=== PATIENT | female | born 2000 | race African-American/Black ===

== ENCOUNTER 2021-10-27 10:42 | Emergency (ER) | payer MEDICAID, SELFPAY ==
--- NOTE | ~2021-10-27 | XR_ITS ---
EXAMINATION: XR CHEST CLINICAL INFORMATION: Fever, chills and cough with congestion. COMPARISON: None TECHNIQUE: 2 views of the chest were obtained. FINDINGS: No significant abnormality is noted involving the heart, lungs, mediastinum, bony thorax or soft tissues. XR/XR chest 2V IMPRESSION: Unremarkable chest examination.
[2021-10-27 11:10] VITALS: BP 132/78; PULSE 102; RESP 18; TEMP 37.4; O2SAT 99; BMI 30.5
[2021-10-27 11:42] LABS: UPreg QC Valid YES; Urine Pregnancy NEGATIVE (NEGATIVE)
[2021-10-27 11:42] LABS: COVID-19 Test Negative (Negative)
[2021-10-27 11:46] LABS: IDNOW Serial# 08D9AD1C; Influenza A Negative (Negative); Influenza B2 Negative (Negative)
[2021-10-27] MEDS: Acetaminophen 325 MG TABLET 975 MG PO (12:37)
[2021-10-27] MEDS: dexAMETHasone 2 MG TABLET 10 MG PO (12:38)
[2021-10-27] MEDS: Lidocaine 4 % Patch ADH..PATCH 1 PATCH TRANSDERMA (12:39)
[2021-10-27 12:46] LABS: Strep A Nucleic Acid Negative (Negative)
--- NOTE | 2021-10-27 13:11 | ED.FEVER ---
HPI - Fever General Chief Complaint: Fever Stated Complaint: Bodyaches/Fever Time Seen by Provider: 10/27/21 11:21 Source: patient and family (Young Daughter at bedside) Mode of arrival: ambulatory Limitations: no limitations History of Present Illness HPI Narrative: 21-year-old female who denies any significant past medical history presenting to the ED with complaints of fevers up to 101.0, body aches, nasal congestion/rhinorrhea, cough with chest congestion and sore throat that started yesterday. She reports headaches as well. She reports that she normally gets headaches. She reports she is vaccinated to COVID and the flu. She denies any recent travel or sick contacts that she is aware of. She denies any dizziness, changes in vision, jaw pain, nausea/vomiting, loss of taste or smell, chest pain, shortness of breath, dyspnea on exertion, orthopnea, abdominal pain, diarrhea, constipation, black or bloody stools, palpitations, paresthesias, lower extremity edema, joint swelling, neck stiffness, rashes or any other symptoms complaints or concerns at this time. MD elicited complaint: fever Onset (ago): day(s) (2) Exacerbating factors: nothing Associated symptoms: chills, myalgias, headache, rhinorrhea, nasal congestion, sore throat and cough Treatments prior to arrival fever: none Related Data Previous Rx's Medication Instructions Recorded acetaminophen 500 mg tablet 1,000 mg PO QID PRN #14 tab 10/27/21 (Tylenol Extra Strength) amoxicillin 875 mg-potassium 1 tab PO BID 10 Days #20 tab 10/27/21 clavulanate 125 mg tablet cyclobenzaprine 10 mg tablet 10 mg PO Q8H PRN #14 tab 10/27/21 lidocaine 5 % topical patch 1 patch TOPICAL DAILY #15 ea 10/27/21 (Lidoderm) Allergies Allergy/AdvReac Type Severity Reaction Status Date / Time aspirin [ASA] Allergy Swelling Verified 10/27/21 11:10 caffeine Allergy Swelling Verified 10/27/21 11:10 Review of Systems Review of Systems: Constitutional : No Weight loss, no night sweats, + Fever, + Chills, + Fatigue, + Malaise ENT/Mouth : No Hearing loss, No Ear Pain, + Nasal Congestion/rhinorrhea No Sinus Pain, No Hoarseness, + sore throat, No Swallowing Difficulty Eyes: No Eye Pain, No Swelling, No Redness, No Foreign Body, No Discharge, No Vision Changes Cardiovascular : No Chest Pain, No SOB, No Dyspnea on Exertion, No Orthopnea, No Edema, No Palpitations Respiratory : + Cough, No Sputum, No Wheezing, No Smoke Exposure, No Dyspnea Gastrointestinal : No Nausea, No Vomiting, No Diarrhea, No Constipation, No abdominal Pain, No Hematochezia, No Melena Genitourinary : no irregular bleeding, No Dysuria, No Urinary Frequency, No Hematuria, No Urinary Incontinence, No Urgency, No Flank Pain, No Urinary Flow Changes, No Hesitancy Musculoskeletal : + joint pain, No Myalgias, No Joint Swelling Skin : No Skin Lesions, No rash Neuro : No Weakness, No Numbness, No Paresthesias, No Loss of Consciousness, No Dizziness, No Headache Psych : No Anxiety/Panic, No Depression, No SI/HI/AH/VH, No Social Issues, Heme/Lymph: No Bruising, No Bleeding,No Lymphadenopathy Endocrine : No Polyuria, No Polydipsia, No Temperature Intolerance Yes all other systems are reviewed and are negative [facility] Past Medical History Attestation statement: The following information was validated with the patient. Social History Social History Advance Directives: No Advance Directives Information Provided: No Physical Exam Vital Signs: Vital Signs: Last Vital Signs Temp 99.4 F 10/27/21 11:10 Pulse 102 H 10/27/21 11:10 Resp 18 10/27/21 11:10 BP 132/78 10/27/21 11:10 Pulse Ox 99 10/27/21 11:10 BMI result Body Mass Index 30.5 vital signs have been reviewed as normal and appeared to be correct. Blood pressure normal. Heart rate 102. Respiration rate normal. Temperature normal. Oxygen saturation normal. Appearance: Alert. Oriented X3. No acute distress. Head: Normal external exam. Normocephalic. Atraumatic. No Frost signs noted. No raccoon eyes noted Eyes: PERRLA. EOMI. Conjunctiva and sclera normal. Eyelids normal. ENT: EAC normal. TM's Normal. Posterior pharynx mildly erythematous although no exudate is noted. Otherwise the rest of the pharynx is within normal limits. Uvula midline. Moist mucous membranes. No lesions/ulcerations or masses noted on the tongue. Normal voice. No trismus noted. No drooling noted. No muffled voice noted. Neck: Normal inspection. Neck supple. FROM. No adenopathy. Thyroid Normal. No tracheal deviation noted. No crepitus is noted. No meningeal signs. No neck mass noted. No signs of trauma noted. CVS: Normal heart rate and rhythm. Heart sound normal. Pulses normal throughout. No murmurs/rales/gallops. Respiratory: No respiratory distress. Painless inspiration. Breath sounds normal. No wheezes/rales/rhonchi noted. Chest nontender. No crepitus is noted. No signs of trauma noted. No accessory muscle usage noted or decreased air movement noted. No signs of trauma. Abdomen: Soft and nontender. Bowel sounds normal in all 4 quadrants. No distention noted. No organomegaly noted. No visible injury noted. Back: No CVA tenderness. Full range of motion noted. Nontender. No signs of trauma. Patient neuro intact bilaterally and distally on all 4 extremities. Patient's reflexes intact bilaterally and distally on all 4 extremities. No rashes/lesion/induration/fluctuance or signs of infection noted. Skin: Skin warm and dry. Normal skin color. Normal skin turgor. No rashes/lesions/lacerations noted. Extremities: No lower extremity edema. No calf tenderness is noted. Extremities exhibit normal range of motion and nontender. Neuro: Oriented X 3. No motor deficit. No sensory deficit. Reflexes normal. Normal steady gait. No focal neuro deficits noted. CN's II-XII intact bilaterally? Vascular: + radial pulses/+ 2 distal pedal pulses/+2 dorsalis pedis b/l. Normal cap refill. No cyanosis noted to upper extremity nails and lower extremity toes nails. Course Course Course Narrative: 11:15am - 21-year-old female who denies any significant past medical history presenting to the ED with complaints of fevers up to 101.0, body aches, nasal congestion/rhinorrhea, cough with chest congestion and sore throat that started yesterday. She reports headaches as well. She reports that she normally gets headaches. She reports she is vaccinated to COVID and the flu. Plan: Chest x-ray, COVID swab, flu swab, strep swab, [facility] [place] is unsure she is possibly . Provide 975 mg of Tylenol and a Lidoderm patch and re-evaluate. Reevaluation(s) Reevaluation #1: - patient negative for COVID/flu/strep and her chest x-rays within normal limits no evidence of pneumonia or any other acute processes. Will DC home with symptomatic treatment and antibiotics for possible bacterial pharyngitis despite the patient coming out negative due to she has tonsillar enlargement her main complaint is a sore throat and she does have some erythema and fevers. Along with instructions return if any new or worsening symptoms to follow up with primary care provider. Patient understands agrees with this plan. Time: 13:17 [facility] - Fever Medical Records Attestation: I reviewed the patient's medical records. Lab Data Attestation: I reviewed the patient's lab results. Labs: Lab Results 10/27/21 10/27/21 10/27/21 Range/Units 11:18 11:18 11:30 Urine Test NEGATIVE (NEGATIVE) COVID-19 (ANURAG) Negative (Negative) COVID-19 Clin Com See Note Influenza Type A (JAKI) Negative (Negative) Influenza Type B (JAKI) Negative (Negative) Influenza A & B Note See Note S. pyogenes GrpA JAKI (Negative) 10/27/21 Range/Units 12:34 Urine Test (NEGATIVE) COVID-19 (ANURAG) (Negative) COVID-19 Clin Com Influenza Type A (JAKI) (Negative) Influenza Type B (JAKI) (Negative) Influenza A & B Note S. pyogenes GrpA JAKI Negative (Negative) Imaging Data Chest x-ray: Attestation: I personally reviewed and interpreted this imaging study as follows: Radiologist's impression: FINDINGS: No significant abnormality is noted involving the heart, lungs, mediastinum, bony thorax or soft tissues. XR/XR chest 2V IMPRESSION: Unremarkable chest examination. Discharge Plan Discharge Clinical Impression: Acute bacterial pharyngitis, Acute upper respiratory infection Patient Disposition: Home, Self-Care Instructions: Pharyngitis (ED), Upper Respiratory Infection (DC) Prescriptions: New amoxicillin-pot clavulanate 875-125 mg tablet 1 tab PO BID 10 Days Qty: 20 0RF acetaminophen [Tylenol Extra Strength] 500 mg tablet 1,000 mg PO QID PRN (Reason: fever or pain) Qty: 14 0RF cyclobenzaprine 10 mg tablet 10 mg PO Q8H PRN (Reason: Muscle spasm) Qty: 14 0RF lidocaine [Lidoderm] 5 % adhesive patch,medicated 1 patch topical DAILY Qty: 15 0RF Rx Instructions: leave on most painful area for up to 12 hrs. May be substituted Referrals: Susie Murrieta MD [Primary Care Provider] - 2 days Stand Alone Forms: Work/School Release Print Language: Tanzanian
== END 2021-10-27 13:34 | disposition home or self-care (01) ==
PROVIDERS: Physician Assistant Medical; Emergency Provider Emergency Medicine; PCP Internal Medicine
DX: J02.9 Acute pharyngitis, unspecified (principal); J06.9 Acute upper respiratory infection, unspecified; Z20.822 Contact with and (suspected) exposure to COVID-19; R50.9 Fever, unspecified
CPT/HCPCS: 36415; 71046; 81025; 87502; 87635; 87651; 99283; J8540

== ENCOUNTER 2022-03-26 13:28 | Emergency (ER) | payer MEDICAID, SELFPAY ==
[2022-03-26 13:55] VITALS: BP 114/60; PULSE 78; RESP 18; TEMP 37.2; O2SAT 100; BMI 26.4
[2022-03-26 14:41] LABS: MANUAL DIFF FLAG NO
[2022-03-26 14:46] LABS: Basophils Percent Auto 0.7 % (0-2); Eosinophils Absolute Auto 0.1 X10*3/uL (0.0-0.4); Eosinophils Percent Auto 3.3 % (0-4); Hematocrit 31.5 % (37.0-47.0); Hemoglobin 10.4 g/dl (12.0-16.0); Imm Gran Abs Auto 0.01 X10*3/uL (0.00-0.03); Imm Gran Pct Auto 0.2 % (0.0-0.4); Lymphocytes Absolute Auto 2.1 X10*3/uL (1.2-4.9); Lymphocytes Percent Auto 50.7 % (20-40); Mean Corpuscular Hemoglobin 27.7 pg (27.0-33.0); Mean Corpuscular Volume 83.8 fL (80.0-98.0); Mean Platelet Volume 10.4 fL (9.4-12.3); Monocytes Absolute Auto 0.5 X10*3/uL (0.1-1.2); Monocytes Percent Auto 12.1 % (2-11); Neutrophils Absolute Auto 1.4 x10*3/uL (2.0-8.3); Platelet Count 238 X10*3/uL (160-400); Red Blood Count 3.76 X10*6/uL (4.20-5.50); Red Cell Distribution Width 14.6 % (11.0-16.0); White Blood Count 4.2 X10*3/uL (4.8-10.8)
[2022-03-26 14:58] LABS: Alanine Aminotransferase 15 U/L (0-31); Albumin Level 4.4 g/dL (3.5-5.0); Alkaline Phosphatase 79 U/L (39-117); Anion Gap 13 (12-20); Aspartate Amino Transferase 16 U/L (5-31); Bilirubin Total 0.2 mg/dL (0.0-1.0); Blood Urea Nitrogen 10 mg/dL (9-16); Calcium 9.2 mg/dL (8.4-10.2); Carbon Dioxide 25 mmol/L (22-29); Chloride 108 mmol/L (96-108); Creatinine Clr Calc Pharmacy 109.5; Estimated Glomerular Filt Rate > 60; Glucose Random 101 mg/dL (60-115); Potassium 4.1 mmol/L (3.3-5.1); Sodium 142 mmol/L (135-145); Total Protein 7.4 g/dL (6.5-8.0)
== END 2022-03-26 20:11 | disposition left against medical advice (07) ==
PROVIDERS: Emergency Provider Emergency Medicine; PCP Internal Medicine
DX: R10.2 Pelvic and perineal pain (principal); N93.9 Abnormal uterine and vaginal bleeding, unspecified
CPT/HCPCS: 36415; 80053; 85025; 99282; 99283

== ENCOUNTER 2022-04-17 12:26 | Emergency (ER) | payer MEDICAID, SELFPAY ==
--- NOTE | ~2022-04-17 | XR_ITS ---
EXAMINATION: XR CHEST CLINICAL INFORMATION: Painful inspiration. COMPARISON: Chest radiographs dated 10/27/2021. TECHNIQUE: 2 views of the chest were obtained. FINDINGS: No significant abnormality is noted involving the heart, lungs, mediastinum, bony thorax or soft tissues. XR/XR chest 2V IMPRESSION: No acute cardiopulmonary process.
[2022-04-17 12:50] VITALS: BP 131/92; PULSE 98; RESP 16; TEMP 37.7; O2SAT 100; BMI 26.5
[2022-04-17 13:10] LABS: Appearance Urine Clear; Color Urine Yellow; Glucose Urine UA Negative (Negative); Leukocyte Esterase Urine Negative (Negative); Nitrite Urine Negative (Negative); Urine Blood Negative (Negative); Urine Ketones Negative (Negative); Urine Protein Trace mg/dL (Neg-Trace)
[2022-04-17 13:11] LABS: UPreg QC Valid YES; Urine Pregnancy NEGATIVE (NEGATIVE)
[2022-04-17 13:25] LABS: COVID-19 Test Negative (Negative)
--- NOTE | 2022-04-17 14:57 | ED.URI ---
HPI - URI/Sore Throat General Chief Complaint: Upper Respiratory Symptoms Stated Complaint: fever, bodyache, pressure in chest Time Seen by Provider: 04/17/22 14:44 Source: patient Mode of arrival: ambulatory Limitations: language barrier History of Present Illness HPI Narrative: 21 yo female here with 2 days of cough, sore throat, headache, body aches, fever up to 102, chest discomfort with coughing. No vomiting, diarrhea, shortness of breath, skin rash, neck pain or stiffness, leg swelling or leg pain. Has had 2 COVID vaccinations No recent travel, sick contact, vaccinations Related Data Previous Rx's Medication Instructions Recorded acetaminophen 500 mg tablet 1,000 mg PO QID PRN fever or pain 10/27/21 (Tylenol Extra Strength) #14 tabs amoxicillin 875 mg-potassium 1 tab PO BID Pharyngitis 10 days 10/27/21 clavulanate 125 mg tablet #20 tabs cyclobenzaprine 10 mg tablet 10 mg PO Q8H PRN Muscle spasm #14 10/27/21 tabs lidocaine 5 % topical patch 1 patch topical DAILY pain #15 ea 10/27/21 (Lidoderm) amoxicillin 500 mg tablet 500 mg PO BID #20 tabs 04/17/22 Allergies Allergy/AdvReac Type Severity Reaction Status Date / Time aspirin [ASA] Allergy Swelling Verified 10/27/21 11:10 caffeine Allergy Swelling Verified 10/27/21 11:10 Review of Systems Review of Systems: Yes all other systems are reviewed and are negative Constitutional: Constitutional: Reports no additional constitutional complaints, Reports body ache(s), Reports chills, Reports fever(s), Reports headache(s) and Denies weakness Eyes: Eyes: Reports no additional eye complaints and Denies change in vision ENT: Reports system reviewed and no additional complaints, except as documented, Denies dizziness, Reports headache(s), Denies nasal congestion, Denies nasal discharge, Denies neck pain and Reports sore throat Cardiovascular: Cardiovascular: Reports no additional cardiovascular complaints, Reports chest pain, Denies leg edema and Denies dyspnea Respiratory: Respiratory: Reports no additional respiratory complaints, Reports cough and Denies dyspnea Gastrointestinal: Gastrointestinal: Reports no additional gastrointestinal complaints, Denies abdominal pain, Denies diarrhea, Denies nausea and Denies vomiting Genitourinary: Genitourinary: Reports no additional female genitourinary complaints and Denies urinary incontinence Musculoskeletal: Musculoskeletal: Reports no additional musculoskeletal complaints, Denies back pain, Denies arthralgias, Denies joint swelling, Denies neck pain, Denies numbness and Denies tingling Integumentary/Breasts: Skin/Breast: Reports system reviewed and no additional complaints, except as docu and Denies rash Neurologic: Reports system reviewed and no additional complaints, except as documented, Denies Abnormal speech present, Denies dizziness, Reports headache(s), Denies numbness, Denies tingling and Denies weakness [facility] Past Medical History Attestation statement: The following information was validated with the patient. Source: old records reviewed and nursing notes reviewed Social History Social History Advance Directives: No Physical Exam Vital Signs: Vital Signs: Last Vital Signs Temp 99.8 F 04/17/22 12:50 Pulse 98 04/17/22 12:50 Resp 16 04/17/22 12:50 BP 131/92 H 04/17/22 12:50 Pulse Ox 100 04/17/22 12:50 O2 Del Method 04/17/22 12:50 BMI result Body Mass Index 26.5 Const: General: cooperative, healthy appearing, comfortable and no acute distress Orientation/consciousness: patient oriented x3 Limitations: no limitations HEENT: Head: Yes normal to inspection Ears: hearing grossly normal bilaterally, TM normal on the left and TM abnormal erythematous on the right General nose exam: Normal external nose present Face and sinus: Yes normal facial exam Mouth: Normal oral and palatal mucosa present Throat: Yes posterior oropharynx normal, Yes tonsils normal and Yes uvula midline Eyes: General: appearance normal, both eyes and all related structures Pupils: Equal, round and reactive pupils present Neck: Neck: Yes normal visual inspection, Yes full ROM, Yes no lymphadenopathy and Yes no meningeal signs Chest: Chest palpation & inspection: normal inspection of the chest Resp: Effort & Inspection: normal respiratory effort Auscultation: clear to auscultation bilaterally Cardio: Rate: regular rate Rhythm: regular rhythm Peripheral pulses: Peripheral pulses 2+ throughout GI: Inspection: Yes normal to inspection Palpation (GI): Soft to palpation and nontender Auscultation: normal bowel sounds Back/Spine/Pelvis: Thoracic/Lumbar Spine: thoracic and lumbar spine normal to inspection Skin: General skin exam: no rashes or lesions noted Neuro: General: patient oriented x3, no meningeal signs, no focal motor deficits and normal sensation to monofilament Cranial nerves: Yes Equal, round and reactive pupils present Cognition (Neuro): normal cognition Speech: No Abnormal speech present Gait exam (Neuro): Normal gait present Motor exam (neuro): 5/5 motor strength present throughout Extrem: General: Yes normal to inspection Course Course Course Narrative: Covid screen negative. CXR shows no acute finding. Likely viral syndrome. WIll need treatment of AOM with amoxicillin x 10 days Recommend supportive care. Reviewed worrisome signs.symptoms with patient and when to seek additional care. Comfortable with discharge home. MDM - URI/Sore Throat MDM Narrative Medical decision making narrative: 21 yo female here with flu like symptoms including chest discomfort with coughing only since yesterday. VSS. Exam normal with exception of RAOM. Will check covid screen, CXR -Low concern for PE with no hypoxia, no tachypnea, no clinical findings concerning for DVT. No risk factors. PERC score 0 Medical Records Attestation: I reviewed the patient's medical records. Lab Data Attestation: I reviewed the patient's lab results. Labs: Lab Results 04/17/22 04/17/22 04/17/22 Range/Units 13:00 13:00 13:00 Urine Color Yellow Urine Appearance Clear Urine pH 6.0 (5.0-9.0) Ur Specific [place] 1.020 (1.005-1.025) Urine Protein Trace (Neg-Trace) mg/dL Urine Glucose (UA) Negative (Negative) mg/dL Urine Ketones Negative (Negative) mg/dL Urine Blood Negative (Negative) Urine Nitrite Negative (Negative) Ur Leukocyte Esterase Negative (Negative) Urine Test NEGATIVE (NEGATIVE) COVID-19 (ANURAG) Negative (Negative) COVID-19 Clin Com See Note Imaging Data Chest x-ray: Attestation: I personally reviewed and interpreted this imaging study as follows: Radiologist's impression: Launch?Image [address] [address] XRay Report Signed Patient: Dale Logan MR#: [id number] : 2000 Acct:[id number] Age/Sex: 21 / F ADM Date: 04/17/22 Loc: HO.ED Attending Dr: Ordering Physician: Lee ED Physician Date of Service: 04/17/22 Procedure(s): XR chest 2V Accession Number(s): [id number] cc: Generic ED Physician~ EXAMINATION: XR CHEST CLINICAL INFORMATION: Painful inspiration. COMPARISON: Chest radiographs dated 10/27/2021. TECHNIQUE: 2 views of the chest were obtained. FINDINGS: No significant abnormality is noted involving the heart, lungs, mediastinum, bony thorax or soft tissues. XR/XR chest 2V IMPRESSION: No acute cardiopulmonary process. Discharge Plan Discharge Clinical Impression: Viral infection, Otitis media Patient Disposition: Home, Self-Care Instructions: Ear Infection (ED), Viral Syndrome (ED) Additional Instructions: Covid test is negative Chest xray shows no signs of infection Urine is normal Take tylenol as needed for pain or fever Prescriptions: New amoxicillin 500 mg tablet 500 mg PO BID Qty: 20 0RF No Action amoxicillin-pot clavulanate 875-125 mg tablet 1 tab PO BID 10 Days Qty: 20 0RF acetaminophen [Tylenol Extra Strength] 500 mg tablet 1,000 mg PO QID PRN (Reason: fever or pain) Qty: 14 0RF cyclobenzaprine 10 mg tablet 10 mg PO Q8H PRN (Reason: Muscle spasm) Qty: 14 0RF lidocaine [Lidoderm] 5 % adhesive patch,medicated 1 patch topical DAILY Qty: 15 0RF Rx Instructions: leave on most painful area for up to 12 hrs. May be substituted Referrals: Padmini Alicia MD [Primary Care Provider] - 1 week (as needed) Interventions: ED Discharge Assessment Last Done: 04/17/22 15:06 Discharge Date/Time: 04/17/22 15:07 Print Language: Korean
== END 2022-04-17 15:07 | disposition home or self-care (01) ==
PROVIDERS: Emergency Provider Emergency Medicine; PCP Internal Medicine
DX: B34.9 Viral infection, unspecified (principal); H66.93 Otitis media, unspecified, bilateral; R51.9 Headache, unspecified; R50.9 Fever, unspecified; Z20.822 Contact with and (suspected) exposure to COVID-19; Z79.899 Other long term (current) drug therapy
CPT/HCPCS: 71046; 81003; 81025; 87635; 99283

== ENCOUNTER 2022-05-28 11:26 | Emergency (ER) | payer MEDICAID, SELFPAY ==
[2022-05-28 11:30] VITALS: BP 128/68; PULSE 92; RESP 17; TEMP 36.6; O2SAT 100; BMI 26.4
--- OUTSIDE RECORDS SUMMARY | 2022-05-28 12:11 | XMS_ITS | Continuity of Care Document ---
:2000 Author Organization [facility] Address [address] [place] [id number]- Care Team Providers Name Role Phone Padmini Alicia MD Primary Care Physician Encounter [facility] [place] Date(s): 03/26/22 - 03/26/[address] [address]- Discharge Disposition: Transferred to short-term general hospit Attending Physician: Anibal Graves MD Admitting Physician: Anibal Graves MD Referring Physician: Not on Staff, Referring MD Allergies, Adverse Reactions, Alerts Substance Reaction Severity Status aspirin Palpitations Active caffeine Active Medications acetaminophen 325 mg oral tablet 650 mg, 2, tablet, By Mouth, Every 6 hours, PRN, # 50 tablet, Refills 0, Tot. Refills 0, Maintenance, as needed for pain, 08/08/19 13:23:00 EST, Print Requisition Start Date: 08/08/19 Status: OrderedColace sodium 100 mg oral capsule 100 mg, 1, capsule, By Mouth, 2 times a day, PRN, # 30 capsule, Refills 3, Tot. Refills 3, Maintenance, for constipation, 06/25/18 9:12:33 EST, Print Requisition Start Date: 06/25/18 Status: Orderedferrous sulfate 325 mg oral enteric coated tablet 325 mg, 1, tablet, By Mouth, Daily, # 90 tablet, Refills 3, Tot. Refills 3, Maintenance, 09/14/20 16:35:00 EST, Route to Pharmacy Electronically, [facility]/pharmacy #[id number], Partial fill upon patient request if the prescription is for a schedule II opioid donna... Start Date: 09/14/20 Status: Orderedibuprofen 400 mg oral tablet 400 mg, 1, tablet, By Mouth, Every 6 hours, PRN, # 60 tablet, Refills 0, Tot. Refills 0, Maintenance, Pain , Moderate, 08/08/19 13:23:00 EST, Print Requisition Start Date: 08/08/19 Status: OrderedPrenatal Multivitamins with Folic Acid 1 mg oral tablet 1 tablet, By Mouth, Daily, # 90 tablet, 2 Refills, Maintenance, 09/09/20 14:40:00 EST, Tablet, [id number], Partial fill upon patient request if the prescription is for a schedule II opioid drug., 1 tablet By Mouth Daily, 59, kg, 08/08/19 11:44... Start Date: 09/09/20 Status: OrderedPrenatal Multivitamins with Folic Acid 1 mg oral tablet 1 tablet, By Mouth, Daily, can be substituted by any PNV covered by her insurance, # 30 tablet, 8 Refills, Maintenance, 06/26/18 9:53:33 EST, Tablet, 1 tablet By Mouth Daily,Instr:can be substituted byany PNV covered by her insurance Start Date: 06/26/18 Status: OrderedPrenatal Multivitamins with Vitamin B Complex, Vitamin C, Minerals and L-Methylfolate oral capsule 1 capsule, By Mouth, Daily, # 30 capsule, 11 Refills, Maintenance, 06/25/18 9:16:55 EST, Capsule, 1 capsule By Mouth Daily Start Date: 06/25/18 Status: Ordered Problem List Condition Effective Dates Status Health Status Informant Anemia in (Confirmed) Active Vital Signs Most recent to oldest [Reference Range]: 1 Oxygen Saturation [94-100 %] 100 % (03/26/22 9:28 PM) Pulse Rate [55-90 bpm] 92 bpm *H* (03/26/22 9:28 PM) Blood Pressure [90-138/55-84 mm Hg] 142/75 mm Hg *H* (03/26/22 9:28 PM) Respiratory Rate [16-30 br/min] 18 br/min (03/26/22 9:28 PM) Temperature [96.8-100.4 DegF] 98.3 DegF (03/26/22 9:28 PM) Mode of Delivery (Oxygen) Room air (03/26/22 9:28 PM) Temperature Route Oral (03/26/22 9:28 PM) Social History Social History Type Response Smoking Status Never (less than 100 in life time) entered on: 09/09/20 Sex Care Team PersonnelName: Padmini Alicia MD Address: [address] [place] [address] [address] [place] [address]-
--- OUTSIDE RECORDS SUMMARY | 2022-05-28 12:11 | XMS_ITS | Continuity of Care Document ---
:2000 Author Organization [facility] Address [address] [place] [id number]- Care Team Providers Name Role Phone Susie Murrieta MD Primary Care Physician Encounter [facility] [place] Date(s): 08/08/19 - 08/08/[address] [address]- [facility] Encounter Diagnosis Otitis media (Final) - 08/08/19 Discharge Disposition: A-D/C Home Attending Physician: Jimmy Vergara MD Admitting Physician: Jimmy Vergara MD Referring Physician: Not on Staff, Referring MD Allergies, Adverse Reactions, Alerts Substance Reaction Severity Status aspirin Palpitations Active caffeine Active Medications acetaminophen 325 mg oral tablet 650 mg, 2, tablet, By Mouth, Every 6 hours, PRN, # 50 tablet, Refills 0, Tot. Refills 0, Maintenance, as needed for pain, 08/08/19 13:23:00 EST, Print Requisition Start Date: 08/08/19 Status: OrderedAugmentin 875 mg-125 mg oral tablet 1 tablet, By Mouth, Every 12 hours, for 7 days, # 14 tablet, 0 Refills, Acute 08/15/19 13:23:00 EST,08/08/19 13:23:00 EST, Tablet Start Date: 08/08/19 Stop Date: 08/15/19 Status: OrderedColace sodium 100 mg oral capsule 100 mg, 1, capsule, By Mouth, 2 times a day, PRN, # 30 capsule, Refills 3, Tot. Refills 3, Maintenance, for constipation, 06/25/18 9:12:33 EST, Print Requisition Start Date: 06/25/18 Status: Orderedibuprofen 400 mg oral tablet 400 [...] Mouth Daily Start Date: 06/25/18 Status: Ordered Results Orders for Microbiology Reports Name Date Group A Strep Screen and Culture 08/08/19 Microbiology Reports TEST:Group A Strep Screen and Culture STATUS:Unauthenticated BODY SITE: SOURCE:THROAT COLLECTED DATE/TIME:08/08/19 11:50 AMGroup A Strep Screen and Culture SPECIMEN DESCRIPTION : THROAT SWAB SPECIAL REQUESTS : NONE DIRECT EXAM : RAPID GROUP A RESULT IS NEGATIVE, REFER TO CULTURE RESULT. REPORT STATUS : PRELIMINARY REPORT Vital Signs Most recent to oldest [Reference Range]: 1 2 Weight 59 kg 59 kg (08/08/19 11:44 AM) (08/08/19 11:37 AM) Oxygen Saturation [94-100 %] 100 % (08/08/19 11:37 AM) Pulse Rate [55-90 bpm] 90 bpm (08/08/19 11:37 AM) Blood Pressure [71-110/30-71 mm Hg] 123/70 mm Hg *H* (08/08/19 11:37 AM) Respiratory Rate [16-30 br/min] 16 br/min (08/08/19 11:37 AM) Temperature [96.8-100.4 DegF] 98.9 DegF (08/08/19 11:37 AM) Mode of Delivery (Oxygen) Room air (08/08/19 11:37 AM) Blood pressure sites Arm, right (08/08/19 11:37 AM) Temperature Route Oral (08/08/19 11:37 AM) Dry Weight 59 kg 59 kg (08/08/19 11:44 AM) (08/08/19 11:37 AM) Weight Obtained Via Standing scale (08/08/19 11:37 AM) Dry Weight Obtained Via Standing scale (08/08/19 11:37 AM)
--- OUTSIDE RECORDS SUMMARY | 2022-05-28 12:11 | XMS_ITS | Continuity of Care Document ---
:2000 Author Organization [facility] Address [address] [place] [address]- Care Team Providers Name Role Phone Dominguez Zarate MD, Padmini Braxton Primary Care Physician [phone] Encounter [facility] [place] Date(s): 11/14/20 - 12/14/[address] [address]- Attending Physician: Josef Lopez Admitting Physician: AdmtrJosef Referring Physician: AdmtrJosef Allergies, Adverse Reactions, Alerts Substance Reaction Severity [...] 09/14/20 16:35:00 EST, Route to Pharmacy Electronically, [facility]/pharmacy #[id number], Partial fill upon patient request if the [...] Health Status Informant Anemia in (Confirmed) Active Social History Social History Type Response Smoking Status Never (less than 100 in life time) entered on: 09/09/20 Sex
--- OUTSIDE RECORDS SUMMARY | 2022-05-28 12:11 | XMS_ITS | Continuity of Care Document ---
:2000 Author Organization [facility] Address [address] [place] [address]- Care Team Providers Name Role Phone Dominguez Zarate MD, Padmini Braxton Primary Care Physician [place] [facility] [place] - 03/27/[address] [address] Discharge Disposition: A-D/C Home Attending Physician: Srinath Rojas MD Admitting Physician: Srinath Rojas MD Referring Physician: Srinath Rojas MD Allergies, Adverse Reactions, Alerts Substance Reaction [...] 09/14/20 16:35:00 EST, Route to Pharmacy Electronically, [facility]/pharmacy #[id number], Partial fill upon patient request if the [...] Most recent to oldest [Reference Range]: 1 Weight 78.4 kg (03/27/22 12:30 AM) Oxygen Saturation [94-100 %] 100 % (03/27/22 12:30 AM) Pulse Rate [55-90 bpm] 86 bpm (03/27/22 12:30 AM) Blood Pressure [90-138/55-84 mm Hg] 124/77 mm Hg (03/27/22 12:30 AM) Respiratory Rate [16-30 br/min] 18 br/min (03/27/22 12:30 AM) Mode of Delivery (Oxygen) Room air (03/27/22 12:30 AM) Blood pressure sites Arm, right (03/27/22 12:30 AM) Temperature Route Oral (03/27/22 12:30 AM) Dry Weight 78.4 kg (03/27/22 12:30 AM) Social History Social History Type Response Smoking Status Never (less than 100 in life time) entered on: 09/09/20 Sex Care Team PersonnelName: Padmini Alicia MD Address: [address] [place] [address] [address] [place] [address]
--- OUTSIDE RECORDS SUMMARY | 2022-05-28 12:11 | XMS_ITS | Continuity of Care Document ---
:2000 Author Organization [facility] Address [address] [place] [address]- Care Team Providers Name Role Phone Dominguez Zarate MD, Padmini Braxton Primary Care Physician [place] [facility] [place] 12/14/[address] [address]- Attending Physician: Not on Staff, Attending MD Allergies, Adverse Reactions, Alerts Substance Reaction [...] 09/14/20 16:35:00 EST, Route to Pharmacy Electronically, [facility]/pharmacy #[id number], Partial fill upon patient request if the [...]
--- OUTSIDE RECORDS SUMMARY | 2022-05-28 12:11 | XMS_ITS | Continuity of Care Document ---
:2000 Author Organization [facility] Address [address] [place] [address]- Care Team Providers Name Role Phone Dominguez Zarate MD, Padmini Braxton Primary Care Physician Encounter [facility] [place] Date(s): 12/04/21 - 01/03/[address] [address]- Allergies, Adverse Reactions, Alerts Substance Reaction Severity [...] 09/14/20 16:35:00 EST, Route to Pharmacy Electronically, [facility]/pharmacy #[id number], Partial fill upon patient request if the [...]
--- OUTSIDE RECORDS SUMMARY | 2022-05-28 12:11 | XMS_ITS | Continuity of Care Document ---
:2000 Author Organization [facility] Address [address] [place] [address]- Care Team Providers Name Role Phone Dominguez Zarate MD, Padmini Braxton Primary Care Physician [phone] [id number] Date(s): 09/16/20 - 11/16/[address] [address]- Attending Physician: Not on Staff, Attending MD Referring Physician: Dominguez Zarate MD, Padmini Braxton Allergies, Adverse Reactions, Alerts Substance Reaction Severity [...] 09/14/20 16:35:00 EST, Route to Pharmacy Electronically, [facility]/pharmacy #[id number], Partial fill upon patient request if the [...]
--- OUTSIDE RECORDS SUMMARY | 2022-05-28 12:11 | XMS_ITS | Continuity of Care Document ---
:2000 Author Organization [facility] Address [address] [place] [address]- Care Team Providers Name Role Phone Dominguez Zarate MD, Padmini Braxton Primary Care Physician [place] [facility] [place] - 10/14/[address] [address]- Allergies, Adverse Reactions, Alerts Substance Reaction Severity [...] 16:35:00 EST, Route to Pharmacy Electronically, [facility]/pharmacy #[id number], Partial fill upon patient request if the [...]
== END 2022-05-28 15:14 | disposition left against medical advice (07) ==
PROVIDERS: Emergency Provider Emergency Medicine; PCP Internal Medicine
DX: O20.9 Hemorrhage in early pregnancy, unspecified (principal); Z3A.01 Less than 8 weeks gestation of pregnancy
CPT/HCPCS: 99281

== ENCOUNTER 2022-05-31 08:48 | Emergency (ER) | payer MEDICAID, SELFPAY ==
--- NOTE | ~2022-05-31 | US_ITS ---
EXAMINATION: US OBSTETRICAL ULTRASOUND CLINICAL INFORMATION: Bleeding. Abdominal pain on the right. History of ectopic . COMPARISON: None. LMP: 04/26/2022. Gestational age by maternal dates is 5 weeks 0 days. Estimated date of delivery by maternal dates is 01/31/2023. TECHNIQUE: Ultrasound of the maternal pelvis is performed using transabdominal and transvaginal transducers. Transvaginal imaging is performed due to inadequate visualization transabdominally. FINDINGS: There is no intrauterine identified. Retroflexed uterus. Normal endometrial stripe measuring 0.7 cm in thickness. Myometrial fibroid of the uterine body measures 1.3 cm. The right maternal ovary measures 3.4 x 1.9 x 1.7 cm. No adnexal mass. Dominant right-sided follicle measures 1.5 cm, likely the corpus luteum. The left maternal ovary measures 3.8 x 2.8 x 2.2 cm. Dominant follicle measuring 2 cm. Small volume of pelvic free fluid. Prominent pelvic vasculature can be seen in the setting of pelvic congestion. US/US OB pelvic and transvaginal IMPRESSION: No intrauterine identified. No ectopic seen.
[2022-05-31 08:55] VITALS: BP 126/72; PULSE 93; RESP 18; TEMP 36.6; O2SAT 99; BMI 26.5
[2022-05-31 09:10] LABS: MANUAL DIFF FLAG NO
[2022-05-31 09:11] LABS: Basophils Percent Auto 0.5 % (0-2); Eosinophils Percent Auto 0.9 % (0-4); Hematocrit 32.5 % (37.0-47.0); Hemoglobin 10.6 g/dl (12.0-16.0); Imm Gran Abs Auto 0.01 X10*3/uL (0.00-0.03); Imm Gran Pct Auto 0.2 % (0.0-0.4); Lymphocytes Percent Auto 47.1 % (20-40); Mean Corpuscular HGB Conc 32.6 g/dl (31.0-35.0); Mean Platelet Volume 10.8 fL (9.4-12.3); Monocytes Absolute Auto 0.3 X10*3/uL (0.1-1.2); Monocytes Percent Auto 7.4 % (2-11); Neutrophils Absolute Auto 1.9 x10*3/uL (2.0-8.3); Neutrophils Percent Auto 43.9 % (45-73); Platelet Count 242 X10*3/uL (160-400); Red Blood Count 3.78 X10*6/uL (4.20-5.50); White Blood Count 4.3 X10*3/uL (4.8-10.8)
--- NOTE | 2022-05-31 09:24 | ED.PREGNANCY ---
HPI - General Chief complaint: Vaginal Bleeding Stated complaint: Abdominal Pain Miscarriage 05/28/22 Time Seen by Provider: 05/31/22 09:21 Source: patient and parts interpreter Mode of arrival: ambulatory Limitations: language barrier History of Present Illness HPI Narrative: 21 yo female who is and ? ectopic (July which required D&C-although patient states she was 26 weeks so ? loss and not ectopic) here with complaints of right lower abdominal cramping, vaginal bleeding since 05/28. Patient was seen at [facility] on the 28 of May. She tells me that she had labs and ultrasound. Her beta quant was 324. They were unable to visualize an intrauterine on ultrasound that day. She was discharged home and recommended to have repeat hormone levels done in 48 hours. Patient reports she has been unable to do so. She reports worsening pain yesterday more on the right lower abdomen and heavier bleeding today. Patient reports she has used 5 pads this morning. Her last menstrual cycle was April 26 Related Data Previous Rx's Medication Instructions Recorded acetaminophen 500 mg tablet 1,000 mg PO QID PRN fever or pain 10/27/21 (Tylenol Extra Strength) #14 tabs amoxicillin 875 mg-potassium 1 tab PO BID Pharyngitis 10 days 10/27/21 clavulanate 125 mg tablet #20 tabs cyclobenzaprine 10 mg tablet 10 mg PO Q8H PRN Muscle spasm #14 10/27/21 tabs lidocaine 5 % topical patch 1 patch topical DAILY pain #15 ea 10/27/21 (Lidoderm) amoxicillin 500 mg tablet 500 mg PO BID #20 tabs 04/17/22 oxycodone 5 mg tablet 5 mg PO Q8H PRN pain #8 tabs 05/31/22 Allergies Allergy/AdvReac Type Severity Reaction Status Date / Time aspirin [ASA] Allergy Swelling Verified 10/27/21 11:10 caffeine Allergy Swelling Verified 10/27/21 11:10 morphine Allergy Palpitation Verified 05/31/22 09:50 s Review of Systems Review of Systems: Yes all other systems are reviewed and are negative Constitutional: Constitutional: Reports no additional constitutional complaints, Denies body ache(s), Denies chills, Denies fever(s), Denies headache(s) and Denies weakness Eyes: Eyes: Reports no additional eye complaints and Denies change in vision ENT: Reports system reviewed and no additional complaints, except as documented, Denies dizziness, Denies headache(s), Denies nasal congestion, Denies nasal discharge and Denies neck pain Cardiovascular: Cardiovascular: Reports no additional cardiovascular complaints, Denies chest pain, Denies leg edema and Denies dyspnea Respiratory: Respiratory: Reports no additional respiratory complaints, Denies cough and Denies dyspnea Gastrointestinal: Gastrointestinal: Reports no additional gastrointestinal complaints, Reports abdominal pain, Denies diarrhea, Denies nausea and Denies vomiting Genitourinary: Genitourinary: Reports no additional female genitourinary complaints, Reports abnormal vaginal bleeding and Denies urinary incontinence Musculoskeletal: Musculoskeletal: Reports no additional musculoskeletal complaints, Reports back pain, Denies arthralgias, Denies joint swelling, Denies neck pain, Denies numbness and Denies tingling Integumentary/Breasts: Skin/Breast: Reports system reviewed and no additional complaints, except as docu and Denies rash Neurologic: Reports system reviewed and no additional complaints, except as documented, Denies Abnormal speech present, Denies dizziness, Denies headache(s), Denies numbness, Denies tingling and Denies weakness [facility] Past Medical History Attestation statement: The following information was validated with the patient. Source: old records reviewed and nursing notes reviewed Social History Social History Smoked in Last 30 Days: No Use of substances other than those prescribed or required for medical reasons: No Advance Directives: No Patient : Yes Physical Exam Vital Signs: Vital Signs: Last Vital Signs Temp 97.9 F 05/31/22 08:55 Pulse 84 05/31/22 10:12 Resp 18 05/31/22 10:12 BP 118/69 05/31/22 10:12 Pulse Ox 100 05/31/22 10:12 O2 Del Method 05/31/22 10:12 BMI result Body Mass Index 26.5 Const: General: cooperative, healthy appearing, comfortable and no acute distress Orientation/consciousness: patient oriented x3 Limitations: no limitations HEENT: Head: Yes normal to inspection Ears: hearing grossly normal bilaterally General nose exam: Normal external nose present Face and sinus: Yes normal facial exam Mouth: Normal oral and palatal mucosa present Throat: Yes posterior oropharynx normal Eyes: General: appearance normal, both eyes and all related structures Pupils: Equal, round and reactive pupils present Neck: Neck: Yes normal visual inspection Chest: Chest palpation & inspection: normal inspection of the chest Resp: Effort & Inspection: normal respiratory effort Auscultation: clear to auscultation bilaterally Cardio: Rate: regular rate Rhythm: regular rhythm Peripheral pulses: Peripheral pulses 2+ throughout GI: Inspection: Yes normal to inspection Palpation (GI): Soft to palpation and Tenderness to palpation present (GI) (Right lower quadrant) suprapubicly Auscultation: normal bowel sounds : Other: Linda MASSEY design specialist There is a moderate amount of blood in the vaginal canal with clots. This was evacuated. The cervical os is slightly open. There is bleeding from the cervical os. There is mild right adnexal tenderness with no palpable mass. There is no cervical motion tenderness. Back/Spine/Pelvis: Thoracic/Lumbar Spine: thoracic and lumbar spine normal to inspection Skin: General skin exam: no rashes or lesions noted Neuro: General: patient oriented x3, no focal motor deficits and normal sensation to monofilament Cranial nerves: Yes Equal, round and reactive pupils present Cognition (Neuro): normal cognition Speech: No Abnormal speech present Gait exam (Neuro): Normal gait present Motor exam (neuro): 5/5 motor strength present throughout Extrem: General: Yes normal to inspection Course Course Course Narrative: Quant is decreasing. Low concern for ectopic . Likely miscarriage Reevaluation(s) Reevaluation #1: 1050-reviewed records from [facility]. Patient had ultrasound showed no intrauterine . Quant was 324. Per [facility] records patient has no history of etopic but had early loss at 26 weeks Reevaluation #2: 1240-beta quant today is 254. This has dropped since her previous. Her ultrasound shows no intrauterine or a topic . At this time with a decreasing beta quant and ultrasound which shows no and no intrauterine patient likely has miscarriage. Low concern for topic . On pelvic exam patient has a mild amount of bleeding. No significant hemorrhage. Hemoglobin and vital signs are stable. Patient was discharged home with recommendations to return for any worrisome signs and symptoms such as increasing bleeding, pain, vomiting or fever. Comfortable plan for discharge home. MDM - OB/Uterine Contractions MDM Narrative Medical decision making narrative: 21-year-old female who believes she is approximately 5 weeks presents with abdominal cramping more focal in the right lower quadrant and vaginal bleeding since May 28 worsened in the last 24 hours. Bleeding is now heavier. Patient has used 5 pads this morning. Patient was seen at [facility] on May 28 and had beta quant and pelvic ultrasound which showed no intrauterine . Unfortunately she was unable to follow-up for repeat levels. On exam patient has tenderness in the right lower abdomen as well as over the suprapubic area. Her vitals are stable. She does have history of ectopic in July. Will need labs, UA, pelvic exam, ultrasound. Will obtain records from [facility] [place] Medical Records Attestation: I reviewed the patient's medical records. Lab Data Attestation: I reviewed the patient's lab results. Result diagrams: 05/31/22 09:04 05/31/22 09:04 Labs: Lab Results 05/31/22 05/31/22 05/31/22 Range/Units 09:04 09:04 09:05 WBC 4.3 L (4.8-10.8) X10*3/uL RBC 3.78 L (4.20-5.50) X10*6/uL Hgb 10.6 L (12.0-16.0) g/dl Hct 32.5 L (37.0-47.0) % MCV 86.0 (80.0-98.0) fL MCH 28.0 (27.0-33.0) pg MCHC 32.6 (31.0-35.0) g/dl RDW 14.0 (11.0-16.0) % Plt Count 242 (160-400) X10*3/uL MPV 10.8 (9.4-12.3) fL Immature Gran % (Auto) 0.2 (0.0-0.4) % Neut % (Auto) 43.9 L (45-73) % Lymph % (Auto) 47.1 H (20-40) % [place] % (Auto) 7.4 (2-11) % Eos % (Auto) 0.9 (0-4) % Baso % (Auto) 0.5 (0-2) % Lymph # (Auto) 2.0 (1.2-4.9) X10*3/uL [place] # (Auto) 0.3 (0.1-1.2) X10*3/uL Eos # (Auto) 0.0 (0.0-0.4) X10*3/uL Baso # (Auto) 0.0 (0.0-0.2) X10*3/uL Abs Immat Gran (auto) 0.01 (0.00-0.03) X10*3/uL Absolute Neuts (auto) 1.9 L (2.0-8.3) x10*3/uL Absolute Nucleated RBC 0.000 (0.0-0.012) X10*3/uL Nucleated RBC % (auto) 0.0 (0.0-0.2) /100WBC Sodium 141 (135-145) mmol/L Potassium 4.4 (3.3-5.1) mmol/L Chloride 108 (96-108) mmol/L Carbon Dioxide 22 (22-29) mmol/L Anion Gap 15 (12-20) BUN 14 (9-16) mg/dL Creatinine 0.76 (0.5-1.4) mg/dL Estim Creat Clear Calc 108.4 Estimated GFR > 60 Random Glucose 96 (60-115) mg/dL Calcium 9.3 (8.4-10.2) mg/dL Total Bilirubin 0.3 (0.0-1.0) mg/dL Direct Bilirubin 0.2 (0.0-0.5) mg/dL AST 15 (5-31) U/L ALT 14 (0-31) U/L Alkaline Phosphatase 77 (39-117) U/L Total Protein 7.5 (6.5-8.0) g/dL Albumin 4.5 (3.5-5.0) g/dL Beta HCG, Quant 254 mIU/mL Urine Color Urine Appearance Urine pH (5.0-9.0) Ur Specific [place] (1.005-1.025) Urine Protein (Neg-Trace) mg/dL Urine Glucose (UA) (Negative) mg/dL Urine Ketones (Negative) mg/dL Urine Blood (Negative) Urine Nitrite (Negative) Ur Leukocyte Esterase (Negative) Urine RBC (0-2) /HPF Urine WBC (0-5) /HPF Ur Squamous Epith Cells (0-2) /HPF Urine Bacteria (None Seen) Hyaline Casts (0-2) /LPF Urine Test (NEGATIVE) Blood Type 05/31/22 05/31/22 05/31/22 Range/Units 09:54 09:54 10:16 WBC (4.8-10.8) X10*3/uL RBC (4.20-5.50) X10*6/uL Hgb (12.0-16.0) g/dl Hct (37.0-47.0) % MCV (80.0-98.0) fL MCH (27.0-33.0) pg MCHC (31.0-35.0) g/dl RDW (11.0-16.0) % Plt Count (160-400) X10*3/uL MPV (9.4-12.3) fL Immature Gran % (Auto) (0.0-0.4) % Neut % (Auto) (45-73) % Lymph % (Auto) (20-40) % [place] % (Auto) (2-11) % Eos % (Auto) (0-4) % Baso % (Auto) (0-2) % Lymph # (Auto) (1.2-4.9) X10*3/uL [place] # (Auto) (0.1-1.2) X10*3/uL Eos # (Auto) (0.0-0.4) X10*3/uL Baso # (Auto) (0.0-0.2) X10*3/uL Abs Immat Gran (auto) (0.00-0.03) X10*3/uL Absolute Neuts (auto) (2.0-8.3) x10*3/uL Absolute Nucleated RBC (0.0-0.012) X10*3/uL Nucleated RBC % (auto) (0.0-0.2) /100WBC Sodium (135-145) mmol/L Potassium (3.3-5.1) mmol/L Chloride (96-108) mmol/L Carbon Dioxide (22-29) mmol/L Anion Gap (12-20) BUN (9-16) mg/dL Creatinine (0.5-1.4) mg/dL Estim Creat Clear Calc Estimated GFR Random Glucose (60-115) mg/dL Calcium (8.4-10.2) mg/dL Total Bilirubin (0.0-1.0) mg/dL Direct Bilirubin (0.0-0.5) mg/dL AST (5-31) U/L ALT (0-31) U/L Alkaline Phosphatase (39-117) U/L Total Protein (6.5-8.0) g/dL Albumin (3.5-5.0) g/dL Beta HCG, Quant mIU/mL Urine Color Yellow Urine Appearance Clear Urine pH 6.5 (5.0-9.0) Ur Specific [place] >= 1.030 H (1.005-1.025) Urine Protein Negative (Neg-Trace) mg/dL Urine Glucose (UA) Negative (Negative) mg/dL Urine Ketones Trace (Negative) mg/dL Urine Blood Small (1+) H (Negative) Urine Nitrite Negative (Negative) Ur Leukocyte Esterase Negative (Negative) Urine RBC 11-20 H (0-2) /HPF Urine WBC 0-5 (0-5) /HPF Ur Squamous Epith Cells 3-5 (0-2) /HPF Urine Bacteria None Seen (None Seen) Hyaline Casts 0-2 (0-2) /LPF Urine Test POSITIVE H (NEGATIVE) Blood Type B Positive Imaging Data pelvic US: Attestation: I personally reviewed and interpreted this imaging study as follows: Radiologist's impression: [place] [id number] Ultrasound Report Signed Patient: Dale Logan MR#: [id number] : 2000 Acct:[id number] Age/Sex: 21 / F ADM Date: 05/31/22 Loc: .ED Attending Dr: Ordering Physician: Ольга Meneses NP Date of Service: 05/31/22 Procedure(s): US OB pelvic and transvaginal Accession Number(s): [id number] cc: Ольга Meneses NP~ EXAMINATION:? US OBSTETRICAL ULTRASOUND CLINICAL INFORMATION:? Bleeding. Abdominal pain on the right. History of ectopic . COMPARISON:? None.? LMP: 04/26/2022. Gestational age by maternal dates is 5 weeks 0 days. Estimated date of delivery by maternal dates is 01/31/2023. TECHNIQUE: Ultrasound of the maternal pelvis is performed using transabdominal and transvaginal transducers. Transvaginal imaging is performed due to inadequate visualization transabdominally. ? ? FINDINGS: There is no intrauterine identified. Retroflexed uterus. Normal endometrial stripe measuring 0.7 cm in thickness. Myometrial fibroid of the uterine body measures 1.3 cm. The right maternal ovary measures 3.4 x 1.9 x 1.7 cm.? No adnexal mass. Dominant right-sided follicle measures 1.5 cm, likely the corpus luteum. The left maternal ovary measures 3.8 x 2.8 x 2.2 cm.? Dominant follicle measuring 2 cm. Small volume of pelvic free fluid. Prominent pelvic vasculature can be seen in the setting of pelvic congestion. US/US OB pelvic and transvaginal IMPRESSION: No intrauterine identified. No ectopic seen. Discharge Plan Discharge Clinical Impression: Missed Patient Disposition: Home, Self-Care Instructions: Miscarriage (ED) Additional Instructions: Dawn hemoglobina es 10.6. Dawn ultrasonido no muestra maria alejandra?n embarazo intrauterino o embarazo ect?leslie. Dawn nivel hormonal es 254, que est? disminuyendo. Est?s teniendo un aborto espont?awais. Vuelva por fiebre >100.4, empeoramiento del dolor o sangrado, v?mitos. Your hemoglobin is 10.6. Your ultrasound does not show any intrauterine or ectopic . Your hormone level is 254 which is decreasing. You are having a miscarriage. Please return for fever >100.4, worsening pain or bleeding, vomiting. Prescriptions: New oxycodone 5 mg tablet 5 mg PO Q8H PRN (Reason: pain) Qty: 8 0RF Rx Instructions: Partial Fill upon patient request. No Action amoxicillin-pot clavulanate 875-125 mg tablet 1 tab PO BID 10 Days Qty: 20 0RF acetaminophen [Tylenol Extra Strength] 500 mg tablet 1,000 mg PO QID PRN (Reason: fever or pain) Qty: 14 0RF cyclobenzaprine 10 mg tablet 10 mg PO Q8H PRN (Reason: Muscle spasm) Qty: 14 0RF lidocaine [Lidoderm] 5 % adhesive patch,medicated 1 patch topical DAILY Qty: 15 0RF Rx Instructions: leave on most painful area for up to 12 hrs. May be substituted amoxicillin 500 mg tablet 500 mg PO BID Qty: 20 0RF Referrals: Topher Christine MD [Physician] - 1 week Print Language: Montenegrin
[2022-05-31 09:27] LABS: Anion Gap 15 (12-20); Blood Urea Nitrogen 14 mg/dL (9-16); Calcium 9.3 mg/dL (8.4-10.2); Carbon Dioxide 22 mmol/L (22-29); Chloride 108 mmol/L (96-108); Creatinine Clr Calc Pharmacy 108.4; Estimated Glomerular Filt Rate > 60; Glucose Random 96 mg/dL (60-115); Potassium 4.4 mmol/L (3.3-5.1); Sodium 141 mmol/L (135-145)
[2022-05-31 09:34] LABS: HCG Quantitative 254 mIU/mL
--- NOTE | 2022-05-31 10:04 | PC.NURSE ---
pt alert and oriented, skin appropriate for ethnicity, pt reports that on 05/28/22 pt started with vaginal bleeding and lower right sided abd pain thinks she is having a miscarriage, pt had a ectopic preg in the past in [place], today went through 5 pads with clots of bleeding and large clots, right lower abd pain 05/07
[2022-05-31 10:08] LABS: UPreg QC Valid YES; Urine Pregnancy POSITIVE (NEGATIVE)
[2022-05-31 10:09] LABS: Appearance Urine Clear; Color Urine Yellow; Glucose Urine UA Negative (Negative); Leukocyte Esterase Urine Negative (Negative); Nitrite Urine Negative (Negative); PH 6.5 (5.0-9.0); Specific Gravity - Urine >= 1.030 (1.005-1.025); UMIC TRIGGER UACC YES; Urine Blood Small (1+) (Negative); Urine Ketones Trace mg/dL (Negative); Urine Protein Negative (Neg-Trace)
[2022-05-31] MEDS: oxyCODONE HCl Immed Release 5 MG TABLET PO (10:11)
[2022-05-31 10:12] VITALS: BP 118/69; PULSE 84; RESP 18; O2SAT 100
--- NOTE | 2022-05-31 10:13 | PC.NURSE ---
pt reports last time she had morphine she became very tachycardic does not want the morphine at this time
[2022-05-31 10:18] LABS: Alanine Aminotransferase 14 U/L (0-31); Albumin Level 4.5 g/dL (3.5-5.0); Alkaline Phosphatase 77 U/L (39-117); Aspartate Amino Transferase 15 U/L (5-31); Bilirubin Direct 0.2 mg/dL (0.0-0.5); Bilirubin Total 0.3 mg/dL (0.0-1.0); Total Protein 7.5 g/dL (6.5-8.0)
[2022-05-31 10:20] LABS: Bacteria Urine None Seen (None Seen); Hyaline Casts Urine 0-2 /LPF (0-2); WBC Urine 0-5 /HPF (0-5)
--- NOTE | 2022-05-31 10:30 | PC.NURSE ---
chaperoned Mary Ellen Unix Developer during a pelvic exam, pt tolerated the procedure well
[2022-05-31 12:55] LABS: CT PCR NOT DETECTED (Not Detect.); NG PCR NOT DETECTED (Not Detect.)
[2022-06-01 11:13] LABS: BV Int Neg Control Negative (Negative); BV Int Pos Control Positive (Positive)
== END 2022-05-31 13:00 | disposition home or self-care (01) ==
PROVIDERS: Nurse Practitioner Family; Emergency Provider Emergency Medicine; PCP Internal Medicine
DX: O02.1 Missed abortion (principal); N76.0 Acute vaginitis; Z3A.01 Less than 8 weeks gestation of pregnancy
CPT/HCPCS: 36415; 76801; 76817; 80048; 80076; 81001; 81003; 81025; 84702; 85025; 86900; 86901; 87480; 87491; 87510; 87591; 87660; 99284

== ENCOUNTER 2022-08-01 10:14 | Emergency (ER) | payer MEDICAID, SELFPAY ==
[2022-08-01 10:39] VITALS: BP 142/95; PULSE 100; RESP 20; TEMP 36.8; O2SAT 100; BMI 28.1
--- OUTSIDE RECORDS SUMMARY | 2022-08-01 11:55 | XMS_ITS | Continuity of Care Document ---
:2000 Author Organization [facility] Address [address] [place] [address]- Care Team Providers Name Role Phone Dominguez Zarate MD, Padmini Braxton Primary Care Physician [phone] Encounter [facility] [place] Date(s): 05/29/22 - 06/28/[address] [address]- Allergies, Adverse Reactions, Alerts Substance Reaction Severity [...] 09/14/20 16:35:00 EST, Route to Pharmacy Electronically, [facility]/pharmacy #[id number], Partial fill upon patient request if the [...] Date: 06/25/18 Status: Ordered Problem List Condition Confirmation Course Effective Dates Status Health Stat us Informant Anemia in Confirmed Active Social History Social History Type Response Smoking Status Never (less than 100 in life time) entered on: 09/09/20 Sex Patient Care team information Care Team PersonnelName: Padmini Alicia MD Position: [facility] Outreach Member Role: PCP Address: Address: [address] [place] [address] [address] [place] [address]- Care Team Related PersonsName: ROXY THOMAS Address: home [address] [place] [address]
--- OUTSIDE RECORDS SUMMARY | 2022-08-01 11:55 | XMS_ITS | Continuity of Care Document ---
:2000 Author Organization [facility] Address [address] [place] [id number]- Care Team Providers Name Role Phone Padmini Alicia MD Primary Care Physician Encounter [facility] Date(s): 05/28/22 - 05/28/[address] [address]- Encounter Diagnosis Vaginal bleeding (Final) - 05/28/22 Positive blood test (Final) - 05/28/22 Discharge Disposition: A-D/C Home Attending Physician: Precious Russell MD Admitting Physician: Precious Russell MD Referring Physician: Not on Staff, Referring [...] 09/14/20 16:35:00 EST, Route to Pharmacy Electronically, [facility]/pharmacy #[id number], Partial fill upon patient request if the [...] Stat us Informant Anemia in Confirmed Active Vital Signs Most recent to oldest 1 2 3 [Reference Range]: Oxygen Saturation [94-100 100 % 100 % 100 % %] (05/28/22 4:06 PM) (05/28/22 2:20 PM) (05/28/22 12:44 PM) Pulse Rate [55-90 bpm] 82 bpm 77 bpm 81 bpm (05/28/22 4:06 PM) (05/28/22 2:20 PM) (05/28/22 12:44 PM) Blood Pressure 117/74 mm Hg 125/71 mm Hg 132/75 mm Hg [90-138/55-84 mm Hg] (05/28/22 4:06 PM) (05/28/22 2:20 PM) (04/30 08/19 12:44 PM) Respiratory Rate [16-30 16 br/min 16 br/min 16 br/mi n br/min] (05/28/22 4:06 PM) (05/28/22 2:20 PM) (05/28/22 12:44 PM) Temperature [96.8-100.4 98 DegF DegF] (05/28/22 12:44 PM) Mode of Delivery (Oxygen) Room air Room air (05/28/22 4:06 PM) (05/28/22 2:20 PM) Blood pressure sites Arm, left (05/28/22 4:06 PM) Social History Social History Type Response Smoking Status Never (less than 100 in life time) entered on: 09/09/20 Sex Patient Care team information PersonnelName: Padmini Alicia MD Address: Address: [address] [place] [address] [address] [place], [place] [address]
[2022-08-01 12:20] LABS: COVID-19 Test Negative (Negative); IDNOW Serial# 16C4AD1C; IDNOW Serial# BCCEAD1C; Influenza A Negative (Negative); Influenza B2 Negative (Negative)
--- NOTE | 2022-08-01 13:24 | ED.URI ---
HPI - URI/Sore Throat General Chief Complaint: Upper Respiratory Symptoms Stated Complaint: Cough/Congestion/Sinus pain Time Seen by Provider: 08/01/22 13:02 Source: patient Mode of arrival: ambulatory Limitations: no limitations History of Present Illness HPI Narrative: 21 yo female presenting with 4 days of nasal congestion, sinus pressure/pain, ear pain, associated with difficulty sleeping due to the congestion. She presents today with multiple family members who are also ill. She states the pain is in her frontal sinuses and radiates to her bilateral ears. It hurts to blow her nose. She states she has yellow and green nasal discharge. No fevers. No chest pain, difficulty breathing, swallowing. She has been taking tylenol with minimal relief. MD elicited complaint: nasal congestion and sinus pain Onset (ago): day(s) (4) Consistency: progressively worsening Severity: severe Description of mucous: watery, yellow and green Able to tolerate fluids by mouth: Yes Exacerbating factors: supine positioning Relieving factors: nothing Context: sick contacts Associated symptoms: myalgias, headache, rhinorrhea, nasal congestion, sore throat, shortness of breath and ear pain Treatments prior to arrival: none Related Data Previous Rx's Medication Instructions Recorded acetaminophen 500 mg tablet 1,000 mg PO QID PRN fever or pain 10/27/21 (Tylenol Extra Strength) #14 tabs amoxicillin 875 mg-potassium 1 tab PO BID Pharyngitis 10 days 10/27/21 clavulanate 125 mg tablet #20 tabs cyclobenzaprine 10 mg tablet 10 mg PO Q8H PRN Muscle spasm #14 10/27/21 tabs lidocaine 5 % topical patch 1 patch topical DAILY pain #15 ea 10/27/21 (Lidoderm) amoxicillin 500 mg tablet 500 mg PO BID #20 tabs 04/17/22 oxycodone 5 mg tablet 5 mg PO Q8H PRN pain #8 tabs 05/31/22 amoxicillin 875 mg-potassium 1 tab PO Q12H #20 tabs 08/01/22 clavulanate 125 mg tablet fluticasone propionate 50 1 spray intranasal Q12H #16 grams 08/01/22 mcg/actuation nasal spray,suspension (Flonase Allergy Relief) Allergies Allergy/AdvReac Type Severity Reaction Status Date / Time aspirin [ASA] Allergy Swelling Verified 10/27/21 11:10 caffeine Allergy Swelling Verified 10/27/21 11:10 morphine Allergy Palpitation Verified 05/31/22 09:50 s Review of Systems Review of Systems: Yes all other systems are reviewed and are negative [facility] Social History Social History Advance Directives: No Physical Exam Vital Signs: Vital Signs: Last Vital Signs Temp 98.2 F 08/01/22 10:39 Pulse 100 08/01/22 10:39 Resp 20 08/01/22 10:39 BP 142/95 H 08/01/22 10:39 Pulse Ox 100 08/01/22 10:39 O2 Del Method 08/01/22 10:39 BMI result Body Mass Index 28.1 Appearance: Alert. Oriented X3. Tearful Head/face: normocephalic, atraumatic, tenderness of the frontal sinuses Eyes: Pupils equal, round and reactive to light. ENT: Pharynx normal. Yellow nasal discharge bilaterally. Normal Tms bilaterally. Neck: Normal inspection. Neck supple. No LAD CVS: Normal heart rate and rhythm. Pulses normal. Respiratory: No respiratory distress. Breath sounds normal. Abdomen: Soft and nontender. +BS x4 Skin: Skin warm and dry. Normal skin color. Normal skin turgor. No rashes. Extremities: No lower extremity edema. No joint swelling Neuro: Oriented X 3. No motor deficit. No sensory deficit. Nonfocal Course Course Course Narrative: 21-year-old female presenting to the ER with sinus pressure, nasal congestion, shortness of breath, headaches for the last 4 days. She reports inability to sleep at home with significant headaches. No relief with Tylenol. She is negative for viral etiology today. Will treat for bacterial sinusitis. We discussed symptomatic and supportive care options for treatment at home and encouraged to follow-up with PCP. Stable for discharge home. Medications Administered Discontinued Medications Generic Name Dose Route Start Last Admin Trade Name Freq PRN Reason Stop Dose Admin Acetaminophen 975 mg 08/01/22 13:42 08/01/22 13:52 Acetaminophen 325 Mg Tablet PO 08/01/22 13:43 975 mg ONCE ONE Administration Medical Decision Making Lab Data Labs: Lab Results 08/01/22 08/01/22 Range/Units 11:50 11:50 COVID-19 (ANURAG) Negative (Negative) COVID-19 Clin Com See Note Influenza Type A (JAKI) Negative (Negative) Influenza Type B (JAKI) Negative (Negative) Influenza A & B Note See Note Discharge Plan Discharge Clinical Impression: Sinusitis Patient Disposition: Home, Self-Care Instructions: Sinusitis (ED) Additional Instructions: You tested negative for COVID and influenza. Take the prescribed antibiotic for sinus infection. Use the prescribed nasal spray for congestion. Take [id number] cold and flu medications as needed for your symptoms. Rest and drink plenty of fluids. Take Tylenol around the clock for headaches. Follow-up with your doctor. If you develop new or worsening symptoms call 911 or come back to the ER for further evaluation. Levi negativo para COVID e influenza. [place] el antibi?carlitos recetado para la infecci?n de los senos paranasales. Use el aerosol nasal recetado para la congesti?n. [place] medicamentos de venta mallika para el resfriado y la gripe seg?n sea necesario para alyssa s?ntomas. Descanse y roel muchos l?quidos. [place] Tylenol lulu todo el d?a para los massimo de bipin. Seguimiento con rosas m?dico. Si desarrolla s?ntomas nuevos o que empeoran, llame al 911 o regrese a la toni de emergencias para yari evaluaci?n adicional. Prescriptions: New amoxicillin-pot clavulanate 875-125 mg tablet 1 tab PO Q12H Qty: 20 0RF fluticasone propionate [Flonase Allergy Relief] 50 mcg/actuation spray,suspension 1 spray intranasal Q12H Qty: 16 0RF Rx Instructions: administer into each nostril No Action amoxicillin-pot clavulanate 875-125 mg tablet 1 tab PO BID 10 Days Qty: 20 0RF acetaminophen [Tylenol Extra Strength] 500 mg tablet 1,000 mg PO QID PRN (Reason: fever or pain) Qty: 14 0RF cyclobenzaprine 10 mg tablet 10 mg PO Q8H PRN (Reason: Muscle spasm) Qty: 14 0RF lidocaine [Lidoderm] 5 % adhesive patch,medicated 1 patch topical DAILY Qty: 15 0RF Rx Instructions: leave on most painful area for up to 12 hrs. May be substituted amoxicillin 500 mg tablet 500 mg PO BID Qty: 20 0RF oxycodone 5 mg tablet 5 mg PO Q8H PRN (Reason: pain) Qty: 8 0RF Rx Instructions: Partial Fill upon patient request. Interventions: ED Discharge Assessment Last Done: 08/01/22 14:07 Discharge Date/Time: 08/01/22 14:07 Print Language: Hebrew
[2022-08-01] MEDS: Acetaminophen 325 MG TABLET 975 MG PO (13:52)
== END 2022-08-01 14:07 | disposition home or self-care (01) ==
PROVIDERS: Emergency Provider Emergency Medicine Emergency Medical Services; PCP Internal Medicine
DX: J32.1 Chronic frontal sinusitis (principal); Z20.822 Contact with and (suspected) exposure to COVID-19
CPT/HCPCS: 87502; 87635; 99283

== ENCOUNTER 2022-08-05 20:19 | Emergency (ER) | payer MEDICAID, SELFPAY ==
[2022-08-05 20:26] VITALS: BP 149/76; PULSE 121; RESP 20; TEMP 37.8; O2SAT 98; BMI 29.5
--- NOTE | 2022-08-05 20:28 | ED.URI ---
HPI - URI/Sore Throat General Chief Complaint: Upper Respiratory Symptoms <CELESTE Gallegos - Last Filed: 08/05/22 20:33> Stated Complaint: congestion, flu like symptoms <CELESTE Gallegos - Last Filed: 08/05/22 20:33> Time Seen by Provider: 08/05/22 20:48 <CELESTE Gallegos - Last Filed: 08/05/22 20:33> Source: patient <Carlie Braden NP - Last Filed: 08/06/22 00:10> Mode of arrival: ambulatory <YESSY Lugo Last Filed: 08/06/22 00:10> Limitations: language barrier <YESSY Lugo Last Filed: 08/06/22 00:10> History of Present Illness HPI Narrative: 21-year-old female presents for nausea and vomiting after taking Augmentin. She was evaluated on 08/01 for upper respiratory symptoms and given Augmentin for URI. Patient states that her congestion has increased, feels like her mucous taste like natural gas. <Carlie Braden NP - Last Filed: 08/06/22 00:10> MD elicited complaint: cough, rhinorrhea, nasal congestion and sinus pain <YESSY Lugo Last Filed: 08/06/22 00:10> Onset (ago): day(s) <Carlie Braden NP - Last Filed: 08/06/22 00:10> Consistency: constant and progressively worsening <YESSY Lugo Last Filed: 08/06/22 00:10> Severity: moderate <YESSY Lugo Last Filed: 08/06/22 00:10> Pain scale (0-10): 7 <YESSY Lugo Last Filed: 08/06/22 00:10> Description of mucous: clear <YESSY Lugo Last Filed: 08/06/22 00:10> Able to tolerate fluids by mouth: Yes <YESSY Lugo Last Filed: 08/06/22 00:10> Exacerbating factors: exertion, deep breaths and leaning forward <YESSY Lugo Last Filed: 08/06/22 00:10> Relieving factors: nothing <Carlie Braden NP - Last Filed: 08/06/22 00:10> Context: sick contacts <Carlie Braden NP - Last Filed: 08/06/22 00:10> Associated symptoms: myalgias, headache, rhinorrhea, nasal congestion, cough, nausea and vomiting <Carlie Braden NP - Last Filed: 08/06/22 00:10> Treatments prior to arrival: antibiotics <Carlie Braden NP - Last Filed: 08/06/22 00:10> Related Data Home Medications: Previous Rx's Medication Instructions Recorded acetaminophen 500 mg tablet 1,000 mg PO QID PRN fever or pain 10/27/21 (Tylenol Extra Strength) #14 tabs amoxicillin 875 mg-potassium 1 tab PO BID Pharyngitis 10 days 10/27/21 clavulanate 125 mg tablet #20 tabs cyclobenzaprine 10 mg tablet 10 mg PO Q8H PRN Muscle spasm #14 10/27/21 tabs lidocaine 5 % topical patch 1 patch topical DAILY pain #15 ea 10/27/21 (Lidoderm) amoxicillin 500 mg tablet 500 mg PO BID #20 tabs 04/17/22 oxycodone 5 mg tablet 5 mg PO Q8H PRN pain #8 tabs 05/31/22 amoxicillin 875 mg-potassium 1 tab PO Q12H #20 tabs 08/01/22 clavulanate 125 mg tablet fluticasone propionate 50 1 spray intranasal Q12H #16 grams 08/01/22 mcg/actuation nasal spray,suspension (Flonase Allergy Relief) azithromycin 250 mg tablet 250 mg PO DAILY 4 days #4 tabs 08/05/22 <CELESTE Gallegos - Last Filed: 08/05/22 20:33> Allergies/Adverse Reactions: Allergies Allergy/AdvReac Type Severity Reaction Status Date / Time aspirin [ASA] Allergy Swelling Verified 08/05/22 20:31 caffeine Allergy Swelling Verified 08/05/22 20:31 morphine Allergy Palpitation Verified 08/05/22 20:31 s <CELESTE Gallegos - Last Filed: 08/05/22 20:33> Review of Systems Review of Systems: Constitutional: No Fever, No Chills ENT/Mouth: No Ear Pain, No Hoarseness, No sore throat, positive sinus pressure, positive congestion Eyes: No Eye Pain, No Swelling, No Redness, No Foreign Body Cardiovascular: Positive Chest Pain, positive palpitations, No SOB Respiratory: Positive Cough, No Dyspnea Gastrointestinal: Positive Nausea, positive Vomiting, No Diarrhea, No abdominal Pain Genitourinary: No Dysuria, No Hematuria Musculoskeletal: No joint pain, No Myalgias, No Joint Swelling Skin: No Skin lacerations, No rash Neuro: No Weakness, No Numbness, No Paresthesias, No Dizziness, No Headache <Carlie Braden NP - Last Filed: 08/06/22 00:10> Yes all other systems are reviewed and are negative <Carlie Braden NP - Last Filed: 08/06/22 00:10> [facility] Past Medical History Attestation statement: The following information was validated with the patient. <Carlie Braden NP - Last Filed: 08/06/22 00:10> Source: old records reviewed <Carlie Braden NP - Last Filed: 08/06/22 00:10> Social History Social History: Social History Alcohol intake: never Smoked in Last 30 Days: No Use of substances other than those prescribed or required for medical reasons: No Advance Directives: No Advance Directives Information Provided: No <CELESTE Gallegos - Last Filed: 08/05/22 20:33> Physical Exam Vital Signs: Vital Signs: Last Vital Signs Temp 98.5 F 08/05/22 23:19 Pulse 94 08/05/22 23:19 Resp 16 08/05/22 23:19 BP 149/86 H 08/05/22 23:19 Pulse Ox 99 08/05/22 23:19 O2 Del Method 08/05/22 23:19 BMI result Body Mass Index 29.5 <CELESTE Gallegos - Last Filed: 08/05/22 20:33> Vital Signs: Last Vital Signs Temp 98.5 F 08/05/22 23:19 Pulse 94 08/05/22 23:19 Resp 16 08/05/22 23:19 BP 149/86 H 08/05/22 23:19 Pulse Ox 99 08/05/22 23:19 O2 Del Method 08/05/22 23:19 BMI result Body Mass Index 29.5 <Carlie Braden NP - Last Filed: 08/06/22 00:10> Appearance: Alert. Oriented X3. Mild distress. Eyes: Pupils equal, round and reactive to light. Sclera nonicteric. ENT: Pharynx normal. Dry mucous membranes. Neck: Normal inspection. Neck supple. No vertebral tenderness or step-offs. No nuchal rigidity. Full range of motion. CVS: Tachycardic heart rate and rhythm. Pulses normal. Respiratory: No respiratory distress. Breath sounds normal. Abdomen: Soft and nontender. Skin: Skin warm and dry. Normal skin color. Normal skin turgor. Extremities: No lower extremity edema. Gait well-balanced well coordinated. Neuro: No motor deficit. No sensory deficit. Cranial nerves 2-12 intact. <Carlie Braden NP - Last Filed: 08/06/22 00:10> Course Course Course Narrative: E-20:30PM - 21yoF who is Indonesian-speaking presenting to the ER with complaints of worsening headache/sinus pressure pain despite being on Augmentin that she was placed on when she was seen here on 08/01/2021 and diagnosed with sinusitis infection. Reports that she had a negative COVID and flu at that time. Reports she feels like her heart is racing as well. She reports she also has been having nausea, vomiting and diarrhea she believes it is related to the antibiotics. She denies any other symptoms complaints or concerns at this time In triage patient is febrile therefore Tylenol ordered at this time as patient is allergic to Motrin. COVID/RSV/flu swab ordered. Along with an EKG. Patient can be evaluated in [facility]. <CELESTE Gallegos - Last Filed: 08/05/22 20:33> E-20:30PM - 21yoF who is Indonesian-speaking presenting to the ER with complaints of worsening headache/sinus pressure pain despite being on Augmentin that she was placed on when she was seen here on 08/01/2021 and diagnosed with sinusitis infection. Reports that she had a negative COVID and flu at that time. Reports she feels like her heart is racing as well. She reports she also has been having nausea, vomiting and diarrhea she believes it is related to the antibiotics. She denies any other symptoms complaints or concerns at this time In triage patient is febrile therefore Tylenol ordered at this time as patient is allergic to Motrin. COVID/RSV/flu swab ordered. Along with an EKG. Patient can be evaluated in [facility]. The patient appears dry, given 1 L of fluids, heart rate 121 decreased to the mid to low 90s. Patient states that she feels like her mucous taste like natural gas and is concerned that she has gas poisoning. She stated that she was cleaning her house and that may be the dust particles had gas in them and got into her nose. I did ask her if anyone else in her family was present during that time, no one else in her family is experiencing these symptoms. She is using nasal sprays on a regular basis for congestion, fluticasone, and has been given an antibiotic Augmentin for upper respiratory symptoms on 08/01/2022. At this time I will change her antibiotic to azithromycin, I did inform her that this is a side effect and not an allergic reaction. Patient's O2 sat is 98-99% on room air, has even unlabored respirations and clear lung sounds. She does not demonstrate any cyanosis, or any cardiac arrhythmias indicating ischemia. Upon my discharge instructions, patient stated that she has anemia, and would like to know if she requires further treatment for this condition. Her H&H is 9.3/28.4, these values are consistent with prior labs. I do not feel that this patient requires transfusion at this time. I did express my concerns about blood transfusion to this patient who agrees that this treatment is not correct for her at this time. I did suggest her follow-up with her primary care physician for further workup. Patient verbalized understanding of and agrees plan of care discharge home. Verbalized understanding of signs and symptoms indicating need for emergent intervention. <Carlie Braden NP - Last Filed: 08/06/22 00:10> Medications Administered Discontinued Medications Generic Name Dose Route Start Last Admin Trade Name Ronakq PRN Reason Stop Dose Admin Acetaminophen 975 mg 08/05/22 20:30 08/05/22 20:51 Acetaminophen 325 Mg Tablet PO 08/05/22 20:31 975 mg ONCE ONE Administration Azithromycin 500 mg 08/05/22 23:08 08/05/22 23:15 Azithromycin 500 Mg Tablet PO 08/05/22 23:09 500 mg ONCE ONE Administration Sodium Chloride 1,000 mls @ 999 mls/hr 08/05/22 21:00 08/05/22 22:30 Ns IVCONT 08/05/22 22:00 Infused .Q1H1M LATRELL Infusion Ondansetron HCl 4 mg 08/05/22 20:56 08/05/22 21:13 Ondansetron Hcl 4 Mg/2 Ml Vial IVPUSH 08/05/22 20:57 4 mg ONCE ONE Administration <CELESTE Gallegos - Last Filed: 08/05/22 20:33> Medications Administered Discontinued Medications Generic Name Dose Route Start Last Admin Trade Name Armando PRN Reason Stop Dose Admin Acetaminophen 975 mg 08/05/22 20:30 08/05/22 20:51 Acetaminophen 325 Mg Tablet PO 08/05/22 20:31 975 mg ONCE ONE Administration Azithromycin 500 mg 08/05/22 23:08 08/05/22 23:15 Azithromycin 500 Mg Tablet PO 08/05/22 23:09 500 mg ONCE ONE Administration Sodium Chloride 1,000 mls @ 999 mls/hr 08/05/22 21:00 08/05/22 22:30 Ns IVCONT 08/05/22 22:00 Infused .Q1H1M LATRELL Infusion Ondansetron HCl 4 mg 08/05/22 20:56 08/05/22 21:13 Ondansetron Hcl 4 Mg/2 Ml Vial IVPUSH 08/05/22 20:57 4 mg ONCE ONE Administration <Carlie Braden NP - Last Filed: 08/06/22 00:10> Medical Decision Making Differential Diagnosis Differential Diagnoses: The differential diagnosis associated with the presentation includes <Carlie Braden NP - Last Filed: 08/06/22 00:10> COVID, influenza, RSV, dehydration <Carlie Braden NP - Last Filed: 08/06/22 00:10> Admission/Observation Consideration of admission/observation: Escalation of care including admission/observation considered <Carlie Braden NP - Last Filed: 08/06/22 00:10> Admission not considered for this patient <Carlie Braden NP - Last Filed: 08/06/22 00:10> Lab Data MDM Lab Attestation statement: I reviewed the patient's lab results. <Carlie Braden NP - Last Filed: 08/06/22 00:10> Result Diagrams: 08/05/22 22:36 08/05/22 22:36 <CELESTE Gallegos - Last Filed: 08/05/22 20:33> Labs: Lab Results 08/05/22 08/05/22 08/05/22 Range/Units 20:41 22:36 22:36 WBC 4.2 L (4.8-10.8) X10*3/uL RBC 3.41 L (4.20-5.50) X10*6/uL Hgb 9.3 L (12.0-16.0) g/dl Hct 28.4 L (37.0-47.0) % MCV 83.3 (80.0-98.0) fL MCH 27.3 (27.0-33.0) pg MCHC 32.7 (31.0-35.0) g/dl RDW 13.1 (11.0-16.0) % Plt Count 232 (160-400) X10*3/uL MPV 9.8 (9.4-12.3) fL Immature Gran % (Auto) 0.0 (0.0-0.4) % Neut % (Auto) 69.9 (45-73) % Lymph % (Auto) 22.7 (20-40) % [place] % (Auto) 6.7 (2-11) % Eos % (Auto) 0.5 (0-4) % Baso % (Auto) 0.2 (0-2) % Lymph # (Auto) 0.9 L (1.2-4.9) X10*3/uL [place] # (Auto) 0.3 (0.1-1.2) X10*3/uL Eos # (Auto) 0.0 (0.0-0.4) X10*3/uL Baso # (Auto) 0.0 (0.0-0.2) X10*3/uL Abs Immat Gran (auto) 0.00 (0.00-0.03) X10*3/uL Absolute Neuts (auto) 2.9 (2.0-8.3) x10*3/uL Absolute Nucleated RBC 0.000 (0.0-0.012) X10*3/uL Nucleated RBC % (auto) 0.0 (0.0-0.2) /100WBC Sodium 140 (135-145) mmol/L Potassium 3.7 (3.3-5.1) mmol/L Chloride 110 H (96-108) mmol/L Carbon Dioxide 21 L (22-29) mmol/L Anion Gap 13 (12-20) BUN 11 (9-16) mg/dL Creatinine 0.70 (0.5-1.4) mg/dL Estim Creat Clear Calc 123.8 Estimated GFR > 60 Random Glucose 100 (60-115) mg/dL Calcium 8.1 L D (8.4-10.2) mg/dL Total Bilirubin 0.3 (0.0-1.0) mg/dL AST 12 (5-31) U/L ALT 8 (0-31) U/L Alkaline Phosphatase 64 (39-117) U/L Total Protein 6.6 (6.5-8.0) g/dL Albumin 3.8 (3.5-5.0) g/dL Influenza Type A (PCR) NEGATIVE (Negative) Influenza Type B (PCR) NEGATIVE (Negative) RSV RNA Qual (PCR) NEGATIVE (Negative) SARS-CoV-2 RNA (RT-PCR) NEGATIVE (Negative) <CELESTE Gallegos - Last Filed: 08/05/22 20:33> Lab Results 08/05/22 08/05/22 08/05/22 Range/Units 20:41 22:36 22:36 WBC 4.2 L (4.8-10.8) X10*3/uL RBC 3.41 L (4.20-5.50) X10*6/uL Hgb 9.3 L (12.0-16.0) g/dl Hct 28.4 L (37.0-47.0) % MCV 83.3 (80.0-98.0) fL MCH 27.3 (27.0-33.0) pg MCHC 32.7 (31.0-35.0) g/dl RDW 13.1 (11.0-16.0) % Plt Count 232 (160-400) X10*3/uL MPV 9.8 (9.4-12.3) fL Immature Gran % (Auto) 0.0 (0.0-0.4) % Neut % (Auto) 69.9 (45-73) % Lymph % (Auto) 22.7 (20-40) % [place] % (Auto) 6.7 (2-11) % Eos % (Auto) 0.5 (0-4) % Baso % (Auto) 0.2 (0-2) % Lymph # (Auto) 0.9 L (1.2-4.9) X10*3/uL [place] # (Auto) 0.3 (0.1-1.2) X10*3/uL Eos # (Auto) 0.0 (0.0-0.4) X10*3/uL Baso # (Auto) 0.0 (0.0-0.2) X10*3/uL Abs Immat Gran (auto) 0.00 (0.00-0.03) X10*3/uL Absolute Neuts (auto) 2.9 (2.0-8.3) x10*3/uL Absolute Nucleated RBC 0.000 (0.0-0.012) X10*3/uL Nucleated RBC % (auto) 0.0 (0.0-0.2) /100WBC Sodium 140 (135-145) mmol/L Potassium 3.7 (3.3-5.1) mmol/L Chloride 110 H (96-108) mmol/L Carbon Dioxide 21 L (22-29) mmol/L Anion Gap 13 (12-20) BUN 11 (9-16) mg/dL Creatinine 0.70 (0.5-1.4) mg/dL Estim Creat Clear Calc 123.8 Estimated GFR > 60 Random Glucose 100 (60-115) mg/dL Calcium 8.1 L D (8.4-10.2) mg/dL Total Bilirubin 0.3 (0.0-1.0) mg/dL AST 12 (5-31) U/L ALT 8 (0-31) U/L Alkaline Phosphatase 64 (39-117) U/L Total Protein 6.6 (6.5-8.0) g/dL Albumin 3.8 (3.5-5.0) g/dL Influenza Type A (PCR) NEGATIVE (Negative) Influenza Type B (PCR) NEGATIVE (Negative) RSV RNA Qual (PCR) NEGATIVE (Negative) SARS-CoV-2 RNA (RT-PCR) NEGATIVE (Negative) <Carlie Braden NP - Last Filed: 08/06/22 00:10> Independent Interpretation I performed an independent interpretation of an: EKG <YESSY Lugo Last Filed: 08/06/22 00:10> Interpretation: Vent. rate 110 BPM OH interval 124 ms QRS duration 86 ms QT/QTc 324/438 ms P-R-T axes 63 79 -43 Sinus tachycardia T wave abnormality, consider inferior ischemia Abnormal ECG When compared with ECG of 04-JUL-2018 12:31, Inverted T waves have replaced nonspecific T wave abnormality in Inferior leads 05-AUG-2022 20:46:26 <YESSY Lugo Last Filed: 08/06/22 00:10> Independent Historian Clinical information obtained from an independent historian. History obtained from or confirmed by: Spouse <YESSY Lugo Last Filed: 08/06/22 00:10> External Record Review External record reviewed: Outpatient record and Prior outpatient labs <YESSY Lugo Last Filed: 08/06/22 00:10> Prescription Management I considered prescription management with: Antibiotic <YESSY Lugo Last Filed: 08/06/22 00:10> Discharge Plan Discharge Clinical Impression: Upper respiratory infection, Sinusitis, Bronchitis <CELESTE Gallegos Last Filed: 08/05/22 20:33> Patient Disposition: Home, Self-Care <CELESTE Gallegos Last Filed: 08/05/22 20:33> Instructions: Sinusitis (ED), Upper Respiratory Infection (ED), Acute Bronchitis (ED) <CELESTE Gallegos Last Filed: 08/05/22 20:33> Additional Instructions: Usted fue evaluado por s?ntomas de las v?as respiratorias superiores. Le recetaron Augmentin yari fecha anterior para yari enfermedad de las v?as respiratorias superiores. Deje de yahir Augmentin debido a los efectos secundarios. No es al?rgico a Augmentin. Dawn RSV de influenza COVID es negativo [place] azitromicina 250 mg lulu los pr?ximos 4 d?as. La primera dosis se le administr? en el departamento de emergencias. Contin?e usando el aerosol nasal que le recetaron anteriormente. Sherry valores de laboratorio indican anemia, sin embargo, no necesita yari transfusi?n de donita en renetta momento. H&H es 9.3/28.4. Mathew por elegir renetta departamento de emergencias para dawn evaluaci?n. Por favor, raven un seguimiento con el m?dico de atenci?n primaria seg?n sea necesario. Regrese al departamento de emergencias por cualquier s?ntoma nuevo, preocupante o que empeore. You were evaluated for upper respiratory symptoms. Your prescribed Augmentin an earlier date for upper respiratory illness. Please stop taking Augmentin due to side effects. Do not have an allergy to Augmentin. Your COVID influenza RSV are negative Take azithromycin 250 mg for the next 4 days. First dose was given to you in the emergency department. Continue to use the nasal spray that was prescribed to you earlier. Your lab values do indicate anemia however you do not require blood transfusion at this time. H&H is 9.3/28.4. Thank you for choosing this emergency department for evaluation. Please follow-up with primary care physician as needed. Return to the emergency department for any new, concerning, or worsening symptoms. <CELESTE Gallegos - Last Filed: 08/05/22 20:33> Prescriptions: New azithromycin 250 mg tablet 250 mg PO DAILY 4 Days Qty: 4 0RF Rx Instructions: start on day 2 of therapy No Action amoxicillin-pot clavulanate 875-125 mg tablet 1 tab PO BID 10 Days Qty: 20 0RF acetaminophen [Tylenol Extra Strength] 500 mg tablet 1,000 mg PO QID PRN (Reason: fever or pain) Qty: 14 0RF cyclobenzaprine 10 mg tablet 10 mg PO Q8H PRN (Reason: Muscle spasm) Qty: 14 0RF lidocaine [Lidoderm] 5 % adhesive patch,medicated 1 patch topical DAILY Qty: 15 0RF Rx Instructions: leave on most painful area for up to 12 hrs. May be substituted amoxicillin 500 mg tablet 500 mg PO BID Qty: 20 0RF oxycodone 5 mg tablet 5 mg PO Q8H PRN (Reason: pain) Qty: 8 0RF Rx Instructions: Partial Fill upon patient request. amoxicillin-pot clavulanate 875-125 mg tablet 1 tab PO Q12H Qty: 20 0RF fluticasone propionate [Flonase Allergy Relief] 50 mcg/actuation spray,suspension 1 spray intranasal Q12H Qty: 16 0RF Rx Instructions: administer into each nostril <CELESTE Gallegos - Last Filed: 08/05/22 20:33> Referrals: [facility] [Primary Care Provider] - 1 week (Follow-up for URI) <CELESTE Gallegos - Last Filed: 08/05/22 20:33> Interventions: ED Discharge Assessment Last Done: 08/05/22 23:20 <CELESTE Gallegos - Last Filed: 08/05/22 20:33> Discharge Date/Time: 08/05/22 23:29 <CELESTE Gallegos - Last Filed: 08/05/22 20:33>
--- NOTE | 2022-08-05 20:32 | ECG_ITS ---
Test Reason : TACHY Blood Pressure : / mmHG Vent. Rate : 110 BPM Atrial Rate : 110 BPM P-R Int : 124 ms QRS Dur : 086 ms QT Int : 324 ms P-R-T Axes : 063 079 -43 degrees QTc Int : 438 ms Sinus tachycardia T wave abnormality, consider inferior ischemia Abnormal ECG When compared with ECG of 04-JUL-2018 12:31, Inverted T waves have replaced nonspecific T wave abnormality in Inferior leads Referred By: Saida Lyle Electronically Signed By:Choco Hernandez
[2022-08-05] MEDS: Acetaminophen 325 MG TABLET 975 MG PO (20:51)
[2022-08-05 20:53] VITALS: O2SAT 97
[2022-08-05] MEDS: ondansetron HCL 4 MG/2 ML VIAL IVPUSH (21:13)
[2022-08-05] MEDS: 0.9 % Sodium Chloride 1,000 ML 999 ML IVCONT (21:13)
[2022-08-05 21:23] LABS: Influenza A PCR NEGATIVE (Negative); Influenza B PCR NEGATIVE (Negative); Resp Syncy Virus RNA Qual PCR NEGATIVE (Negative); SARS COV2 PCR INHOUSE NEGATIVE (Negative)
[2022-08-05 22:39] LABS: MANUAL DIFF FLAG NO
[2022-08-05 22:41] LABS: Basophils Percent Auto 0.2 % (0-2); Eosinophils Percent Auto 0.5 % (0-4); Hematocrit 28.4 % (37.0-47.0); Hemoglobin 9.3 g/dl (12.0-16.0); Lymphocytes Absolute Auto 0.9 X10*3/uL (1.2-4.9); Lymphocytes Percent Auto 22.7 % (20-40); Mean Corpuscular HGB Conc 32.7 g/dl (31.0-35.0); Mean Corpuscular Hemoglobin 27.3 pg (27.0-33.0); Mean Corpuscular Volume 83.3 fL (80.0-98.0); Mean Platelet Volume 9.8 fL (9.4-12.3); Monocytes Absolute Auto 0.3 X10*3/uL (0.1-1.2); Monocytes Percent Auto 6.7 % (2-11); Neutrophils Absolute Auto 2.9 x10*3/uL (2.0-8.3); Neutrophils Percent Auto 69.9 % (45-73); Platelet Count 232 X10*3/uL (160-400); Red Blood Count 3.41 X10*6/uL (4.20-5.50); Red Cell Distribution Width 13.1 % (11.0-16.0); White Blood Count 4.2 X10*3/uL (4.8-10.8)
[2022-08-05 23:05] LABS: Alanine Aminotransferase 8 U/L (0-31); Albumin Level 3.8 g/dL (3.5-5.0); Alkaline Phosphatase 64 U/L (39-117); Anion Gap 13 (12-20); Aspartate Amino Transferase 12 U/L (5-31); Bilirubin Total 0.3 mg/dL (0.0-1.0); Blood Urea Nitrogen 11 mg/dL (9-16); Calcium 8.1 mg/dL (8.4-10.2); Carbon Dioxide 21 mmol/L (22-29); Chloride 110 mmol/L (96-108); Creatinine Clr Calc Pharmacy 123.8; Estimated Glomerular Filt Rate > 60; Glucose Random 100 mg/dL (60-115); Potassium 3.7 mmol/L (3.3-5.1); Sodium 140 mmol/L (135-145); Total Protein 6.6 g/dL (6.5-8.0)
[2022-08-05] MEDS: Azithromycin 500 MG TABLET PO (23:15)
[2022-08-05 23:19] VITALS: BP 149/86; PULSE 94; RESP 16; TEMP 36.9; O2SAT 99
== END 2022-08-05 23:29 | disposition home or self-care (01) ==
PROVIDERS: Physician Assistant Medical; Emergency Provider Internal Medicine
DX: J06.9 Acute upper respiratory infection, unspecified (principal); J32.9 Chronic sinusitis, unspecified; J40 Bronchitis, not specified as acute or chronic; Z20.822 Contact with and (suspected) exposure to COVID-19; Z20.828 Contact with and (suspected) exposure to other viral communicable diseases; Z79.899 Other long term (current) drug therapy
CPT/HCPCS: 0241U; 36415; 80053; 85025; 93005; 96361; 96374; 99284; 99285; J2405

== ENCOUNTER 2022-10-12 15:22 | Emergency (ER) | payer MEDICAID, SELFPAY ==
[2022-10-12 15:49] VITALS: BP 120/76; PULSE 107; RESP 16; TEMP 36.6; O2SAT 98; BMI 25.8
[2022-10-12 16:00] VITALS: BP 112/62; PULSE 101; RESP 18; TEMP 37.7; O2SAT 99
--- NOTE | 2022-10-12 16:03 | ED_ITS ---
HPI - General Adult General Chief complaint: General Medical <CELESTE Nava - Last Filed: 10/12/22 16:04> Stated complaint: Flu like symptoms <CELESTE Nava - Last Filed: 10/12/22 16:04> Time Seen by Provider: 10/12/22 16:49 <CELESTE Nava - Last Filed: 10/12/22 16:04> History of Present Illness HPI narrative: patient complains of sore throat for 2 or 3 days as well as body aches, there is no cough no shortness of breath she intermittently feels mildly dizzy or lightheaded but she is not dizzy or lightheaded now, she never felt faint or feeling faint she has no headache no chest pain no palpitations, no feeling of the room moving no nausea or vomiting, she is able to eat and drink but it hurts a little bit but she is able to <CELESTE Breen - Last Filed: 10/13/22 11:06> Related Data Home medications: Previous Rx's Medication Instructions Recorded acetaminophen 500 mg tablet 1,000 mg PO QID PRN fever or pain 10/27/21 (Tylenol Extra Strength) #14 tabs amoxicillin 875 mg-potassium 1 tab PO BID Pharyngitis 10 days 10/27/21 clavulanate 125 mg tablet #20 tabs cyclobenzaprine 10 mg tablet 10 mg PO Q8H PRN Muscle spasm #14 10/27/21 tabs lidocaine 5 % topical patch 1 patch topical DAILY pain #15 ea 10/27/21 (Lidoderm) amoxicillin 500 mg tablet 500 mg PO BID #20 tabs 04/17/22 oxycodone 5 mg tablet 5 mg PO Q8H PRN pain #8 tabs 05/31/22 amoxicillin 875 mg-potassium 1 tab PO Q12H #20 tabs 08/01/22 clavulanate 125 mg tablet fluticasone propionate 50 1 spray intranasal Q12H #16 grams 08/01/22 mcg/actuation nasal spray,suspension (Flonase Allergy Relief) azithromycin 250 mg tablet 250 mg PO DAILY 4 days #4 tabs 08/05/22 acetaminophen 500 mg capsule 1,000 mg PO TID PRN fever or pain 10/12/22 #30 caps amoxicillin 500 mg tablet 500 mg PO BID 10 days #20 tabs 10/12/22 <CELESTE Nava - Last Filed: 10/12/22 16:04> Allergies/adverse reactions: Allergies Allergy/AdvReac Type Severity Reaction Status Date / Time aspirin [ASA] Allergy Swelling Verified 10/12/22 15:49 caffeine Allergy Swelling Verified 10/12/22 15:49 morphine Allergy Palpitation Verified 10/12/22 15:49 s <CELESTE Nava - Last Filed: 10/12/22 16:04> [facility] Past Medical History Source: nursing notes reviewed <CELESTE Breen - Last Filed: 10/13/22 11:06> Social History Social History: Social History Alcohol intake: never Smoked in Last 30 Days: No Use of substances other than those prescribed or required for medical reasons: No Advance Directives: No Advance Directives Information Provided: No <CELESTE Nava - Last Filed: 10/12/22 16:04> Physical Exam ED Vital Signs: Vital Signs - 24 hr 10/12/22 15:49 10/12/22 16:00 Temperature 98 F 99.8 F Pulse Rate 107 H 101 H Respiratory Rate 16 18 Blood Pressure 120/76 112/62 Pulse Oximetry 98 99 Oxygen Delivery Method Room Air BMI result Body Mass Index 25.8 <CELESTE Nava - Last Filed: 10/12/22 16:04> Vital Signs - 24 hr 10/12/22 15:49 10/12/22 16:00 Temperature 98 F 99.8 F Pulse Rate 107 H 101 H Respiratory Rate 16 18 Blood Pressure 120/76 112/62 Pulse Oximetry 98 99 Oxygen Delivery Method Room Air BMI result Body Mass Index 25.8 <CELESTE Breen - Last Filed: 10/13/22 11:06> General appearance comfortable no distress The eyes no redness or discharge The sinuses nontender The pharynx had bilateral redness swelling and exudate symmetric over the t onsils, uvula is midline voice is normal mucous membranes are moist there is no drooling or trismus Neck is supple Respiratory no distress Chest clear to auscultation bilateral Heart no murmur Abdomen soft nontender Extremities for range of motion x4 Skin no rash <CELESTE Breen - Last Filed: 10/13/22 11:06> Course Course Course Narrative: RME performed by Vera Roth PA-C. Patient is a 21 year old female presenting to the emergency department with flu like symptoms and dizziness. Labs and swabs ordered. Patient placed back in the waiting room pending room availability and results. <CELESTE Nava - Last Filed: 10/12/22 16:04> RME performed by Vera Roth PA-C. Patient is a 21 year old female presenting to the emergency department with flu like symptoms and dizziness. Labs and swabs ordered. Patient placed back in the waiting room pending room availability and results. Strep test was positive, COVID and flu were negative, other labs nondiagnostic, patient was given a dose of steroids, started on amoxicillin and discharged tolerating p.o. and comfortable <CELESTE Breen - Last Filed: 10/13/22 11:06> Medications Administered Discontinued Medications Generic Name Dose Route Start Last Admin Trade Name Freq PRN Reason Stop Dose Admin Acetaminophen 975 mg 10/12/22 17:15 10/12/22 17:26 Acetaminophen 325 Mg Tablet PO 10/12/22 17:16 975 mg ONCE ONE Administration Amoxicillin 500 mg 10/12/22 17:15 10/12/22 17:26 Amoxicillin 500 Mg Capsule PO 10/12/22 17:16 500 mg ONCE ONE Administration Dexamethasone 10 mg 10/12/22 17:15 10/12/22 17:26 Dexamethasone 2 Mg Tablet PO 10/12/22 17:16 10 mg ONCE ONE Administration <CELESTE Nava - Last Filed: 10/12/22 16:04> Medications Administered Discontinued Medications Generic Name Dose Route Start Last Admin Trade Name Freq PRN Reason Stop Dose Admin Acetaminophen 975 mg 10/12/22 17:15 10/12/22 17:26 Acetaminophen 325 Mg Tablet PO 10/12/22 17:16 975 mg ONCE ONE Administration Amoxicillin 500 mg 10/12/22 17:15 10/12/22 17:26 Amoxicillin 500 Mg Capsule PO 10/12/22 17:16 500 mg ONCE ONE Administration Dexamethasone 10 mg 10/12/22 17:15 10/12/22 17:26 Dexamethasone 2 Mg Tablet PO 10/12/22 17:16 10 mg ONCE ONE Administration <CELESTE Breen - Last Filed: 10/13/22 11:06> Medical Decision Making Lab Data [facility] Lab Attestation statement: I reviewed the patient's lab results. <CELESTE Breen - Last Filed: 10/13/22 11:06> Result Diagrams: 10/12/22 16:06 10/12/22 16:06 <CELESTE Nava - Last Filed: 10/12/22 16:04> Labs: Lab Results 10/12/22 10/12/22 10/12/22 Range/Units 16:05 16:06 16:06 WBC (4.8-10.8) X10*3/uL RBC (4.20-5.50) X10*6/uL Hgb (12.0-16.0) g/dl Hct (37.0-47.0) % MCV (80.0-98.0) fL MCH (27.0-33.0) pg MCHC (31.0-35.0) g/dl RDW (11.0-16.0) % Plt Count (160-400) X10*3/uL MPV (9.4-12.3) fL Absolute Nucleated RBC (0.0-0.012) X10*3/uL Nucleated RBC % (auto) (0.0-0.2) /100WBC Sodium (135-145) mmol/L Potassium (3.3-5.1) mmol/L Chloride (96-108) mmol/L Carbon Dioxide (22-29) mmol/L Anion Gap (12-20) BUN (9-16) mg/dL Creatinine (0.5-1.4) mg/dL Estim Creat Clear Calc Estimated GFR Random Glucose (60-115) mg/dL Calcium (8.4-10.2) mg/dL COVID-19 (ANURAG) Negative (Negative) COVID-19 Clin Com See Note Influenza Type A (JAKI) Negative (Negative) Influenza Type B (JAKI) Negative (Negative) Influenza A & B Note See Note S. pyogenes GrpA JAKI Positive A (Negative) 10/12/22 10/12/22 Range/Units 16:06 16:06 WBC 9.3 (4.8-10.8) X10*3/uL RBC 3.86 L (4.20-5.50) X10*6/uL Hgb 10.7 L (12.0-16.0) g/dl Hct 32.5 L (37.0-47.0) % MCV 84.2 (80.0-98.0) fL MCH 27.7 (27.0-33.0) pg MCHC 32.9 (31.0-35.0) g/dl RDW 14.9 (11.0-16.0) % Plt Count 244 (160-400) X10*3/uL MPV 10.8 (9.4-12.3) fL Absolute Nucleated RBC 0.000 (0.0-0.012) X10*3/uL Nucleated RBC % (auto) 0.0 (0.0-0.2) /100WBC Sodium 139 (135-145) mmol/L Potassium 4.1 (3.3-5.1) mmol/L Chloride 105 (96-108) mmol/L Carbon Dioxide 22 (22-29) mmol/L Anion Gap 16 (12-20) BUN 8 L (9-16) mg/dL Creatinine 0.78 (0.5-1.4) mg/dL Estim Creat Clear Calc 104.3 Estimated GFR > 60 Random Glucose 86 (60-115) mg/dL Calcium 9.3 D (8.4-10.2) mg/dL COVID-19 (ANURAG) (Negative) COVID-19 Clin Com Influenza Type A (JAKI) (Negative) Influenza Type B (JAKI) (Negative) Influenza A & B Note S. pyogenes GrpA JAKI (Negative) <CELESTE Nava - Last Filed: 10/12/22 16:04> Lab Results 10/12/22 10/12/22 10/12/22 Range/Units 16:05 16:06 16:06 WBC (4.8-10.8) X10*3/uL RBC (4.20-5.50) X10*6/uL Hgb (12.0-16.0) g/dl Hct (37.0-47.0) % MCV (80.0-98.0) fL MCH (27.0-33.0) pg MCHC (31.0-35.0) g/dl RDW (11.0-16.0) % Plt Count (160-400) X10*3/uL MPV (9.4-12.3) fL Absolute Nucleated RBC (0.0-0.012) X10*3/uL Nucleated RBC % (auto) (0.0-0.2) /100WBC Sodium (135-145) mmol/L Potassium (3.3-5.1) mmol/L Chloride (96-108) mmol/L Carbon Dioxide (22-29) mmol/L Anion Gap (12-20) BUN (9-16) mg/dL Creatinine (0.5-1.4) mg/dL Estim Creat Clear Calc Estimated GFR Random Glucose (60-115) mg/dL Calcium (8.4-10.2) mg/dL COVID-19 (ANURAG) Negative (Negative) COVID-19 Clin Com See Note Influenza Type A (JAKI) Negative (Negative) Influenza Type B (JAKI) Negative (Negative) Influenza A & B Note See Note S. pyogenes GrpA JAKI Positive A (Negative) 10/12/22 10/12/22 Range/Units 16:06 16:06 WBC 9.3 (4.8-10.8) X10*3/uL RBC 3.86 L (4.20-5.50) X10*6/uL Hgb 10.7 L (12.0-16.0) g/dl Hct 32.5 L (37.0-47.0) % MCV 84.2 (80.0-98.0) fL MCH 27.7 (27.0-33.0) pg MCHC 32.9 (31.0-35.0) g/dl RDW 14.9 (11.0-16.0) % Plt Count 244 (160-400) X10*3/uL MPV 10.8 (9.4-12.3) fL Absolute Nucleated RBC 0.000 (0.0-0.012) X10*3/uL Nucleated RBC % (auto) 0.0 (0.0-0.2) /100WBC Sodium 139 (135-145) mmol/L Potassium 4.1 (3.3-5.1) mmol/L Chloride 105 (96-108) mmol/L Carbon Dioxide 22 (22-29) mmol/L Anion Gap 16 (12-20) BUN 8 L (9-16) mg/dL Creatinine 0.78 (0.5-1.4) mg/dL Estim Creat Clear Calc 104.3 Estimated GFR > 60 Random Glucose 86 (60-115) mg/dL Calcium 9.3 D (8.4-10.2) mg/dL COVID-19 (ANURAG) (Negative) COVID-19 Clin Com Influenza Type A (JAKI) (Negative) Influenza Type B (JAKI) (Negative) Influenza A & B Note S. pyogenes GrpA JAKI (Negative) <CELESTE Breen - Last Filed: 10/13/22 11:06> Discharge Plan Discharge Clinical Impression: Acute streptococcal pharyngitis <CELESTE Nava - Last Filed: 10/12/22 16:04> Patient Disposition: Home, Self-Care <CELESTE Nava - Last Filed: 10/12/22 16:04> Additional Instructions: strep test was positive so we are treating strep throat with amoxicillin We gave 1 dose of steroid Decadron which is often helpful to relieve pain within 24 hours Use Tylenol as needed drink plenty of fluids Return any time any worse condition or any concerns <CELESTE Nava - Last Filed: 10/12/22 16:04> Prescriptions: New amoxicillin 500 mg tablet 500 mg PO BID 10 Days Qty: 20 0RF acetaminophen 500 mg capsule 1,000 mg PO TID PRN (Reason: fever or pain) Qty: 30 0RF No Action amoxicillin-pot clavulanate 875-125 mg tablet 1 tab PO BID 10 Days Qty: 20 0RF acetaminophen [Tylenol Extra Strength] 500 mg tablet 1,000 mg PO QID PRN (Reason: fever or pain) Qty: 14 0RF cyclobenzaprine 10 mg tablet 10 mg PO Q8H PRN (Reason: Muscle spasm) Qty: 14 0RF lidocaine [Lidoderm] 5 % adhesive patch,medicated 1 patch topical DAILY Qty: 15 0RF Rx Instructions: leave on most painful area for up to 12 hrs. May be substituted amoxicillin 500 mg tablet 500 mg PO BID Qty: 20 0RF oxycodone 5 mg tablet 5 mg PO Q8H PRN (Reason: pain) Qty: 8 0RF Rx Instructions: Partial Fill upon patient request. amoxicillin-pot clavulanate 875-125 mg tablet 1 tab PO Q12H Qty: 20 0RF fluticasone propionate [Flonase Allergy Relief] 50 mcg/actuation spray,suspension 1 spray intranasal Q12H Qty: 16 0RF Rx Instructions: administer into each nostril azithromycin 250 mg tablet 250 mg PO DAILY 4 Days Qty: 4 0RF Rx Instructions: start on day 2 of therapy <CELESTE Nava - Last Filed: 10/12/22 16:04> Stand Alone Forms: Work/School Release <CELESTE Nava - Last Filed: 10/12/22 16:04> Interventions: ED Discharge Assessment Last Done: 10/12/22 18:08 <CELESTE Nava - Last Filed: 10/12/22 16:04> Discharge Date/Time: 10/12/22 18:09 <CELESTE Nava - Last Filed: 10/12/22 16:04>
[2022-10-12 16:30] LABS: Hematocrit 32.5 % (37.0-47.0); Hemoglobin 10.7 g/dl (12.0-16.0); Mean Corpuscular HGB Conc 32.9 g/dl (31.0-35.0); Mean Corpuscular Hemoglobin 27.7 pg (27.0-33.0); Mean Corpuscular Volume 84.2 fL (80.0-98.0); Mean Platelet Volume 10.8 fL (9.4-12.3); Platelet Count 244 X10*3/uL (160-400); Red Blood Count 3.86 X10*6/uL (4.20-5.50); Red Cell Distribution Width 14.9 % (11.0-16.0); White Blood Count 9.3 X10*3/uL (4.8-10.8)
[2022-10-12 16:43] LABS: Anion Gap 16 (12-20); Blood Urea Nitrogen 8 mg/dL (9-16); Calcium 9.3 mg/dL (8.4-10.2); Carbon Dioxide 22 mmol/L (22-29); Chloride 105 mmol/L (96-108); Creatinine Clr Calc Pharmacy 104.3; Estimated Glomerular Filt Rate > 60; Glucose Random 86 mg/dL (60-115); Potassium 4.1 mmol/L (3.3-5.1); Sodium 139 mmol/L (135-145)
[2022-10-12 16:53] LABS: IDNOW Serial# 08D9AD1C; Strep A Nucleic Acid Positive (Negative)
--- NOTE | 2022-10-12 16:57 | PC.NURSE ---
pt resting, vss. reports 8/10 pain in throat. awaiting provider. will cont to monitor
[2022-10-12 17:03] LABS: COVID-19 Test Negative (Negative); IDNOW Serial# 9DB6401D; IDNOW Serial# BCCEAD1C; Influenza A Negative (Negative); Influenza B2 Negative (Negative)
[2022-10-12] MEDS: dexAMETHasone 2 MG TABLET 10 MG PO (17:26)
[2022-10-12] MEDS: Acetaminophen 325 MG TABLET 975 MG PO (17:26)
[2022-10-12] MEDS: Amoxicillin 500 MG CAPSULE PO (17:26)
== END 2022-10-12 18:09 | disposition home or self-care (01) ==
PROVIDERS: Emergency Medicine; Emergency Provider Emergency Medicine; PCP Internal Medicine
DX: J02.0 Streptococcal pharyngitis (principal); M79.10 Myalgia, unspecified site; R06.02 Shortness of breath; R42 Dizziness and giddiness; Z20.822 Contact with and (suspected) exposure to COVID-19; Z20.828 Contact with and (suspected) exposure to other viral communicable diseases; Z79.899 Other long term (current) drug therapy
CPT/HCPCS: 36415; 80048; 85027; 87502; 87635; 87651; 99283; 99284; J8540

== ENCOUNTER 2022-11-18 13:25 | Emergency (ER) | payer MEDICAID, SELFPAY ==
--- NOTE | 2022-11-18 13:33 | ECG_ITS ---
Test Reason : CP Blood Pressure : / mmHG Vent. Rate : 098 BPM Atrial Rate : 098 BPM P-R Int : 134 ms QRS Dur : 088 ms QT Int : 340 ms P-R-T Axes : 076 079 026 degrees QTc Int : 434 ms Normal sinus rhythm Nonspecific T wave abnormality Abnormal ECG When compared with ECG of 05-AUG-2022 20:46, T wave inversion less evident in Inferior leads Referred By: Generic ED Physician Electronically Signed By:Choco Hernandez
[2022-11-18 14:00] VITALS: BP 122/71; PULSE 100; RESP 19; TEMP 36.6; O2SAT 100; BMI 29.2
--- NOTE | 2022-11-18 14:03 | ED_ITS ---
HPI - General Adult General Chief complaint: General Medical <Ori Sarah - Last Filed: 11/18/22 14:06> Stated complaint: Chest pain/8 wks preg <Ori Sarah - Last Filed: 11/18/22 14:06> Time Seen by Provider: 11/18/22 16:16 <Ori Sarah - Last Filed: 11/18/22 14:06> Source: patient <Chino Brown MD - Last Filed: 11/18/22 17:25> Mode of arrival: ambulatory <Chino Brown MD - Last Filed: 11/18/22 17:25> Limitations: no limitations <Chino Brown MD - Last Filed: 11/18/22 17:25> History of Present Illness HPI narrative: Patient 22 years old 8 weeks 5 days comes here pain in the left parasternal area for last 3 days which increased on palpation also complain of pain in the left shoulder. No other cardiac history in the past no shortness of breath no fever or chills <Chino Brown MD - Last Filed: 11/18/22 17:25> Related Data Home medications: Previous Rx's Medication Instructions Recorded acetaminophen 500 mg tablet 1,000 mg PO QID PRN fever or pain 10/27/21 (Tylenol Extra Strength) #14 tabs amoxicillin 875 mg-potassium 1 tab PO BID Pharyngitis 10 days 10/27/21 clavulanate 125 mg tablet #20 tabs cyclobenzaprine 10 mg tablet 10 mg PO Q8H PRN Muscle spasm #14 10/27/21 tabs lidocaine 5 % topical patch 1 patch topical DAILY pain #15 ea 10/27/21 (Lidoderm) amoxicillin 500 mg tablet 500 mg PO BID #20 tabs 04/17/22 oxycodone 5 mg tablet 5 mg PO Q8H PRN pain #8 tabs 05/31/22 amoxicillin 875 mg-potassium 1 tab PO Q12H #20 tabs 08/01/22 clavulanate 125 mg tablet fluticasone propionate 50 1 spray intranasal Q12H #16 grams 08/01/22 mcg/actuation nasal spray,suspension (Flonase Allergy Relief) azithromycin 250 mg tablet 250 mg PO DAILY 4 days #4 tabs 08/05/22 acetaminophen 500 mg capsule 1,000 mg PO TID PRN fever or pain 10/12/22 #30 caps amoxicillin 500 mg tablet 500 mg PO BID 10 days #20 tabs 10/12/22 acetaminophen 325 mg tablet 650 mg PO Q6H PRN pain #30 tabs 11/18/22 (Tylenol) omeprazole 40 mg capsule,delayed 40 mg PO DAILY #20 caps 11/18/22 release <Ori Sarah - Last Filed: 11/18/22 14:06> Allergies/adverse reactions: Allergies Allergy/AdvReac Type Severity Reaction Status Date / Time aspirin [ASA] Allergy Swelling Verified 10/12/22 15:49 caffeine Allergy Swelling Verified 10/12/22 15:49 morphine Allergy Palpitation Verified 10/12/22 15:49 s <Ori Sarah - Last Filed: 11/18/22 14:06> Review of Systems Review of Systems: Yes all other systems are reviewed and are negative <Chino Brown MD - Last Filed: 11/18/22 17:25> [facility] Social History Social History: Social History Alcohol intake: never Advance Directives: No Advance Directives Information Provided: No <Ori Sarah - Last Filed: 11/18/22 14:06> Physical Exam ED Vital Signs: Vital Signs - 24 hr 11/18/22 14:00 11/18/22 16:49 Temperature 98 F Pulse Rate 100 80 Respiratory Rate 19 14 Blood Pressure 122/71 118/70 Pulse Oximetry 100 100 Oxygen Delivery Method Room Air Room Air BMI result Body Mass Index 29.2 <Ori Sarah - Last Filed: 11/18/22 14:06> Vital Signs - 24 hr 11/18/22 14:00 11/18/22 16:49 Temperature 98 F Pulse Rate 100 80 Respiratory Rate 19 14 Blood Pressure 122/71 118/70 Pulse Oximetry 100 100 Oxygen Delivery Method Room Air Room Air BMI result Body Mass Index 29.2 <Chino Brown MD - Last Filed: 11/18/22 17:25> Appearance: Alert. Oriented X3. No acute distress. ENT: Pharynx normal. Oral Mucosa moist Neck: Normal inspection. Neck supple. CVS: Normal heart rate and rhythm. Pulses normal. Respiratory: No respiratory distress. Equal air entry bilateral, no wheezing/rales/rhonchi left chest wall tenderness Abdomen: Soft and nontender. Bowel sounds are present, no mass palpable, no CVA tenderness Skin: Skin warm and dry. Normal skin color. Normal skin turgor. Extremities: No lower extremity edema. No calf tenderness Neuro: Oriented X 3. <Chino Brown MD - Last Filed: 11/18/22 17:25> Course Course Course Narrative: 22 year old female who is 8 weeks and 5 days presents for evaluation of burning epigastric pain. She also reports numbness to her left side. NIH score 0. Plan for labs, ekg, UA <Ori Sarah - Last Filed: 11/18/22 14:06> Medications Administered Discontinued Medications Generic Name Dose Route Start Last Admin Trade Name Freq PRN Reason Stop Dose Admin Acetaminophen 650 mg 11/18/22 16:46 11/18/22 17:00 Acetaminophen 325 Mg Tablet PO 11/18/22 16:47 650 mg ONCE ONE Administration Omeprazole 40 mg 11/18/22 16:46 11/18/22 17:00 Omeprazole 40 Mg Capsule.Dr PEDRO 11/18/22 16:47 40 mg ONCE ONE Administration <Ori Sarah - Last Filed: 11/18/22 14:06> Medications Administered Discontinued Medications Generic Name Dose Route Start Last Admin Trade Name Freq PRN Reason Stop Dose Admin Acetaminophen 650 mg 11/18/22 16:46 11/18/22 17:00 Acetaminophen 325 Mg Tablet PO 11/18/22 16:47 650 mg ONCE ONE Administration Omeprazole 40 mg 11/18/22 16:46 11/18/22 17:00 Omeprazole 40 Mg Capsule.Dr PEDRO 11/18/22 16:47 40 mg ONCE ONE Administration <Chino Brown MD - Last Filed: 11/18/22 17:25> Medical Decision Making Medical Decision Making [facility] Narrative: It was atypical chest pain likely musculoskeletal discharge patient Tylenol also has GERD symptoms will give her omeprazole <Chino Brown MD - Last Filed: 11/18/22 17:25> Lab Data [facility] Lab Attestation statement: I reviewed the patient's lab results. <Chino Brown MD - Last Filed: 11/18/22 17:25> Result Diagrams: 11/18/22 14:09 11/18/22 14:09 <Ori Sarah - Last Filed: 11/18/22 14:06> Labs: Lab Results 11/18/22 11/18/22 11/18/22 Range/Units 14:09 14:09 14:09 WBC 7.4 (4.8-10.8) X10*3/uL RBC 3.85 L (4.20-5.50) X10*6/uL Hgb 10.8 L (12.0-16.0) g/dl Hct 32.5 L (37.0-47.0) % MCV 84.4 (80.0-98.0) fL MCH 28.1 (27.0-33.0) pg MCHC 33.2 (31.0-35.0) g/dl RDW 14.6 (11.0-16.0) % Plt Count 252 (160-400) X10*3/uL MPV 10.3 (9.4-12.3) fL Immature Gran % (Auto) 0.4 (0.0-0.4) % Neut % (Auto) 61.8 (45-73) % Lymph % (Auto) 25.2 (20-40) % [place] % (Auto) 11.1 H (2-11) % Eos % (Auto) 1.1 (0-4) % Baso % (Auto) 0.4 (0-2) % Lymph # (Auto) 1.9 (1.2-4.9) X10*3/uL [place] # (Auto) 0.8 (0.1-1.2) X10*3/uL Eos # (Auto) 0.1 (0.0-0.4) X10*3/uL Baso # (Auto) 0.0 (0.0-0.2) X10*3/uL Abs Immat Gran (auto) 0.03 (0.00-0.03) X10*3/uL Absolute Neuts (auto) 4.6 (2.0-8.3) x10*3/uL Absolute Nucleated RBC 0.000 (0.0-0.012) X10*3/uL Nucleated RBC % (auto) 0.0 (0.0-0.2) /100WBC Sodium 139 (135-145) mmol/L Potassium 3.9 (3.3-5.1) mmol/L Chloride 106 (96-108) mmol/L Carbon Dioxide 25 (22-29) mmol/L Anion Gap 12 (12-20) BUN 8 L (9-16) mg/dL Creatinine 0.72 (0.5-1.4) mg/dL Estim Creat Clear Calc 118.7 Estimated GFR > 60 Random Glucose 105 (60-115) mg/dL Calcium 9.3 (8.4-10.2) mg/dL Magnesium 1.9 (1.6-2.6) mg/dL Total Bilirubin 0.3 (0.0-1.0) mg/dL AST 12 (5-31) U/L ALT 12 (0-31) U/L Alkaline Phosphatase 68 (39-117) U/L Troponin I High Sens < 2.7 (<3.5-17.0) ng/L Total Protein 7.1 (6.5-8.0) g/dL Albumin 4.1 (3.5-5.0) g/dL Lipase 24 (8-78) U/L Beta HCG, Quant mIU/mL 11/18/22 Range/Units 14:09 WBC (4.8-10.8) X10*3/uL RBC (4.20-5.50) X10*6/uL Hgb (12.0-16.0) g/dl Hct (37.0-47.0) % MCV (80.0-98.0) fL MCH (27.0-33.0) pg MCHC (31.0-35.0) g/dl RDW (11.0-16.0) % Plt Count (160-400) X10*3/uL MPV (9.4-12.3) fL Immature Gran % (Auto) (0.0-0.4) % Neut % (Auto) (45-73) % Lymph % (Auto) (20-40) % [place] % (Auto) (2-11) % Eos % (Auto) (0-4) % Baso % (Auto) (0-2) % Lymph # (Auto) (1.2-4.9) X10*3/uL [place] # (Auto) (0.1-1.2) X10*3/uL Eos # (Auto) (0.0-0.4) X10*3/uL Baso # (Auto) (0.0-0.2) X10*3/uL Abs Immat Gran (auto) (0.00-0.03) X10*3/uL Absolute Neuts (auto) (2.0-8.3) x10*3/uL Absolute Nucleated RBC (0.0-0.012) X10*3/uL Nucleated RBC % (auto) (0.0-0.2) /100WBC Sodium (135-145) mmol/L Potassium (3.3-5.1) mmol/L Chloride (96-108) mmol/L Carbon Dioxide (22-29) mmol/L Anion Gap (12-20) BUN (9-16) mg/dL Creatinine (0.5-1.4) mg/dL Estim Creat Clear Calc Estimated GFR Random Glucose (60-115) mg/dL Calcium (8.4-10.2) mg/dL Magnesium (1.6-2.6) mg/dL Total Bilirubin (0.0-1.0) mg/dL AST (5-31) U/L ALT (0-31) U/L Alkaline Phosphatase (39-117) U/L Troponin I High Sens (<3.5-17.0) ng/L Total Protein (6.5-8.0) g/dL Albumin (3.5-5.0) g/dL Lipase (8-78) U/L Beta HCG, Quant [id number] mIU/mL <Ori Sarah - Last Filed: 11/18/22 14:06> Lab Results 11/18/22 11/18/22 11/18/22 Range/Units 14:09 14:09 14:09 WBC 7.4 (4.8-10.8) X10*3/uL RBC 3.85 L (4.20-5.50) X10*6/uL Hgb 10.8 L (12.0-16.0) g/dl Hct 32.5 L (37.0-47.0) % MCV 84.4 (80.0-98.0) fL MCH 28.1 (27.0-33.0) pg MCHC 33.2 (31.0-35.0) g/dl RDW 14.6 (11.0-16.0) % Plt Count 252 (160-400) X10*3/uL MPV 10.3 (9.4-12.3) fL Immature Gran % (Auto) 0.4 (0.0-0.4) % Neut % (Auto) 61.8 (45-73) % Lymph % (Auto) 25.2 (20-40) % [place] % (Auto) 11.1 H (2-11) % Eos % (Auto) 1.1 (0-4) % Baso % (Auto) 0.4 (0-2) % Lymph # (Auto) 1.9 (1.2-4.9) X10*3/uL [place] # (Auto) 0.8 (0.1-1.2) X10*3/uL Eos # (Auto) 0.1 (0.0-0.4) X10*3/uL Baso # (Auto) 0.0 (0.0-0.2) X10*3/uL Abs Immat Gran (auto) 0.03 (0.00-0.03) X10*3/uL Absolute Neuts (auto) 4.6 (2.0-8.3) x10*3/uL Absolute Nucleated RBC 0.000 (0.0-0.012) X10*3/uL Nucleated RBC % (auto) 0.0 (0.0-0.2) /100WBC Sodium 139 (135-145) mmol/L Potassium 3.9 (3.3-5.1) mmol/L Chloride 106 (96-108) mmol/L Carbon Dioxide 25 (22-29) mmol/L Anion Gap 12 (12-20) BUN 8 L (9-16) mg/dL Creatinine 0.72 (0.5-1.4) mg/dL Estim Creat Clear Calc 118.7 Estimated GFR > 60 Random Glucose 105 (60-115) mg/dL Calcium 9.3 (8.4-10.2) mg/dL Magnesium 1.9 (1.6-2.6) mg/dL Total Bilirubin 0.3 (0.0-1.0) mg/dL AST 12 (5-31) U/L ALT 12 (0-31) U/L Alkaline Phosphatase 68 (39-117) U/L Troponin I High Sens < 2.7 (<3.5-17.0) ng/L Total Protein 7.1 (6.5-8.0) g/dL Albumin 4.1 (3.5-5.0) g/dL Lipase 24 (8-78) U/L Beta HCG, Quant mIU/mL 11/18/22 Range/Units 14:09 WBC (4.8-10.8) X10*3/uL RBC (4.20-5.50) X10*6/uL Hgb (12.0-16.0) g/dl Hct (37.0-47.0) % MCV (80.0-98.0) fL MCH (27.0-33.0) pg MCHC (31.0-35.0) g/dl RDW (11.0-16.0) % Plt Count (160-400) X10*3/uL MPV (9.4-12.3) fL Immature Gran % (Auto) (0.0-0.4) % Neut % (Auto) (45-73) % Lymph % (Auto) (20-40) % [place] % (Auto) (2-11) % Eos % (Auto) (0-4) % Baso % (Auto) (0-2) % Lymph # (Auto) (1.2-4.9) X10*3/uL [place] # (Auto) (0.1-1.2) X10*3/uL Eos # (Auto) (0.0-0.4) X10*3/uL Baso # (Auto) (0.0-0.2) X10*3/uL Abs Immat Gran (auto) (0.00-0.03) X10*3/uL Absolute Neuts (auto) (2.0-8.3) x10*3/uL Absolute Nucleated RBC (0.0-0.012) X10*3/uL Nucleated RBC % (auto) (0.0-0.2) /100WBC Sodium (135-145) mmol/L Potassium (3.3-5.1) mmol/L Chloride (96-108) mmol/L Carbon Dioxide (22-29) mmol/L Anion Gap (12-20) BUN (9-16) mg/dL Creatinine (0.5-1.4) mg/dL Estim Creat Clear Calc Estimated GFR Random Glucose (60-115) mg/dL Calcium (8.4-10.2) mg/dL Magnesium (1.6-2.6) mg/dL Total Bilirubin (0.0-1.0) mg/dL AST (5-31) U/L ALT (0-31) U/L Alkaline Phosphatase (39-117) U/L Troponin I High Sens (<3.5-17.0) ng/L Total Protein (6.5-8.0) g/dL Albumin (3.5-5.0) g/dL Lipase (8-78) U/L Beta HCG, Quant [id number] mIU/mL <Chino Brown MD - Last Filed: 11/18/22 17:25> Independent Interpretation I performed an independent interpretation of an: EKG <Chino Brown MD - Last Filed: 11/18/22 17:25> Interpretation: Normal sinus rhythm heart rate 98 beats per minute normal interval no acute ST T wave changes no acute skin <Chino Brown MD - Last Filed: 11/18/22 17:25> Scores Heart Score History: -0- slightly suspicious <Chino Brown MD - Last Filed: 11/18/22 17:25> ECG: -0- normal <Chino Brown MD - Last Filed: 11/18/22 17:25> Age: -0- < or = 45 <Chino Brown MD - Last Filed: 11/18/22 17:25> Risk factory: -0- no risk factors known <Chino Brown MD - Last Filed: 11/18/22 17:25> Troponin: -0- < or = normal limit <Chino Brown MD - Last Filed: 11/18/22 17:25> Score: 0 <Chino Brown MD - Last Filed: 11/18/22 17:25> Risk: 1.7% <Chino Brown MD - Last Filed: 11/18/22 17:25> Discharge Plan Discharge Clinical Impression: Atypical chest pain, Chronic GERD <Ori Sarah - Last Filed: 11/18/22 14:06> Patient Disposition: Home, Self-Care <Ori Saarh - Last Filed: 11/18/22 14:06> Instructions: Gastroesophageal Reflux Disease (ED), Chest Wall Pain (ED) <Ori Sarah - Last Filed: 11/18/22 14:06> Additional Instructions: Take Tylenol for pain The chest pain is more muscular Prilosec for acid reflux Follow with PCP <Ori Sarah - Last Filed: 11/18/22 14:06> Prescriptions: New omeprazole 40 mg capsule,delayed release(DR/EC) 40 mg PO DAILY Qty: 20 0RF acetaminophen [Tylenol] 325 mg tablet 650 mg PO Q6H PRN (Reason: pain) Qty: 30 0RF No Action amoxicillin-pot clavulanate 875-125 mg tablet 1 tab PO BID 10 Days Qty: 20 0RF acetaminophen [Tylenol Extra Strength] 500 mg tablet 1,000 mg PO QID PRN (Reason: fever or pain) Qty: 14 0RF cyclobenzaprine 10 mg tablet 10 mg PO Q8H PRN (Reason: Muscle spasm) Qty: 14 0RF lidocaine [Lidoderm] 5 % adhesive patch,medicated 1 patch topical DAILY Qty: 15 0RF Rx Instructions: leave on most painful area for up to 12 hrs. May be substituted amoxicillin 500 mg tablet 500 mg PO BID Qty: 20 0RF amoxicillin 500 mg tablet 500 mg PO BID 10 Days Qty: 20 0RF acetaminophen 500 mg capsule 1,000 mg PO TID PRN (Reason: fever or pain) Qty: 30 0RF oxycodone 5 mg tablet 5 mg PO Q8H PRN (Reason: pain) Qty: 8 0RF Rx Instructions: Partial Fill upon patient request. amoxicillin-pot clavulanate 875-125 mg tablet 1 tab PO Q12H Qty: 20 0RF fluticasone propionate [Flonase Allergy Relief] 50 mcg/actuation spray,suspension 1 spray intranasal Q12H Qty: 16 0RF Rx Instructions: administer into each nostril azithromycin 250 mg tablet 250 mg PO DAILY 4 Days Qty: 4 0RF Rx Instructions: start on day 2 of therapy <Ori Sarah - Last Filed: 11/18/22 14:06> Interventions: ED Discharge Assessment Last Done: 11/18/22 17:15 <Ori Sarah - Last Filed: 11/18/22 14:06> Discharge Date/Time: 11/18/22 17:15 <Ori Sarah - Last Filed: 11/18/22 14:06>
[2022-11-18 14:21] LABS: MANUAL DIFF FLAG NO
[2022-11-18 14:22] LABS: Basophils Percent Auto 0.4 % (0-2); Eosinophils Absolute Auto 0.1 X10*3/uL (0.0-0.4); Eosinophils Percent Auto 1.1 % (0-4); Hematocrit 32.5 % (37.0-47.0); Hemoglobin 10.8 g/dl (12.0-16.0); Imm Gran Abs Auto 0.03 X10*3/uL (0.00-0.03); Imm Gran Pct Auto 0.4 % (0.0-0.4); Lymphocytes Absolute Auto 1.9 X10*3/uL (1.2-4.9); Lymphocytes Percent Auto 25.2 % (20-40); Mean Corpuscular HGB Conc 33.2 g/dl (31.0-35.0); Mean Corpuscular Hemoglobin 28.1 pg (27.0-33.0); Mean Corpuscular Volume 84.4 fL (80.0-98.0); Mean Platelet Volume 10.3 fL (9.4-12.3); Monocytes Absolute Auto 0.8 X10*3/uL (0.1-1.2); Monocytes Percent Auto 11.1 % (2-11); Neutrophils Absolute Auto 4.6 x10*3/uL (2.0-8.3); Neutrophils Percent Auto 61.8 % (45-73); Platelet Count 252 X10*3/uL (160-400); Red Blood Count 3.85 X10*6/uL (4.20-5.50); Red Cell Distribution Width 14.6 % (11.0-16.0); White Blood Count 7.4 X10*3/uL (4.8-10.8)
[2022-11-18 14:36] LABS: Alanine Aminotransferase 12 U/L (0-31); Albumin Level 4.1 g/dL (3.5-5.0); Alkaline Phosphatase 68 U/L (39-117); Anion Gap 12 (12-20); Aspartate Amino Transferase 12 U/L (5-31); Bilirubin Total 0.3 mg/dL (0.0-1.0); Blood Urea Nitrogen 8 mg/dL (9-16); Calcium 9.3 mg/dL (8.4-10.2); Carbon Dioxide 25 mmol/L (22-29); Chloride 106 mmol/L (96-108); Creatinine Clr Calc Pharmacy 118.7; Estimated Glomerular Filt Rate > 60; Glucose Random 105 mg/dL (60-115); Lipase 24 U/L (8-78); Magnesium 1.9 mg/dL (1.6-2.6); Potassium 3.9 mmol/L (3.3-5.1); Sodium 139 mmol/L (135-145); Total Protein 7.1 g/dL (6.5-8.0)
[2022-11-18 14:43] LABS: Troponin-I High Sensitivity < 2.7 ng/L (<3.5-17.0)
[2022-11-18 16:49] VITALS: BP 118/70; PULSE 80; RESP 14; O2SAT 100
[2022-11-18] MEDS: Omeprazole 40 MG CAPSULE.DR PO (17:00)
[2022-11-18] MEDS: Acetaminophen 325 MG TABLET 650 MG PO (17:00)
== END 2022-11-18 17:15 | disposition home or self-care (01) ==
PROVIDERS: Physician Assistant; Emergency Provider Internal Medicine; PCP Internal Medicine
DX: O26.91 Pregnancy related conditions, unspecified, first trimester (principal); R07.89 Other chest pain; K21.9 Gastro-esophageal reflux disease without esophagitis; Z3A.08 8 weeks gestation of pregnancy; Z79.899 Other long term (current) drug therapy
CPT/HCPCS: 36415; 80053; 83690; 83735; 84484; 84702; 85025; 93005; 99284

== ENCOUNTER 2022-11-22 04:10 | Emergency (ER) | payer MEDICAID, SELFPAY ==
--- NOTE | 2022-11-22 | ECG_ITS ---
Test Reason : CHEST PAIN Blood Pressure : / mmHG Vent. Rate : 078 BPM Atrial Rate : 078 BPM P-R Int : 128 ms QRS Dur : 088 ms QT Int : 380 ms P-R-T Axes : 060 075 034 degrees QTc Int : 433 ms Normal sinus rhythm with sinus arrhythmia Normal ECG When compared with ECG of 18-NOV-2022 13:34, Nonspecific T wave abnormality no longer evident in Lateral leads Referred By: Generic ED Physician Electronically Signed By:Choco Hernandez
[2022-11-22 04:35] VITALS: BP 117/68; PULSE 91; RESP 18; TEMP 36.8; O2SAT 99; BMI 27.4
[2022-11-22 04:44] LABS: Hematocrit 29.9 % (37.0-47.0); Hemoglobin 9.9 g/dl (12.0-16.0); Mean Corpuscular HGB Conc 33.1 g/dl (31.0-35.0); Mean Corpuscular Hemoglobin 27.8 pg (27.0-33.0); Mean Platelet Volume 9.8 fL (9.4-12.3); Platelet Count 209 X10*3/uL (160-400); Red Blood Count 3.56 X10*6/uL (4.20-5.50); Red Cell Distribution Width 14.4 % (11.0-16.0); White Blood Count 5.4 X10*3/uL (4.8-10.8)
--- NOTE | 2022-11-22 05:02 | ED.GENADULT ---
HPI - General Adult General Chief complaint: General Medical Stated complaint: n/v, back pain Time Seen by Provider: 11/22/22 04:51 Source: patient Mode of arrival: ambulatory Limitations: no limitations History of Present Illness HPI narrative: Patient 9 weeks was seen here on 11/18 for mid chest pain workup was negative comes here again for 3 days of nausea vomiting now after taking Prilosec. Vomited about 4 or 5 times a day had diarrhea also same number of times no significant abdominal pain no urinary complaint history complaining of mid chest pain after vomiting no vaginal discharge no shortness of breath Related Data Previous Rx's Medication Instructions Recorded acetaminophen 500 mg tablet 1,000 mg PO QID PRN fever or pain 10/27/21 (Tylenol Extra Strength) #14 tabs amoxicillin 875 mg-potassium 1 tab PO BID Pharyngitis 10 days 10/27/21 clavulanate 125 mg tablet #20 tabs cyclobenzaprine 10 mg tablet 10 mg PO Q8H PRN Muscle spasm #14 10/27/21 tabs lidocaine 5 % topical patch 1 patch topical DAILY pain #15 ea 10/27/21 (Lidoderm) amoxicillin 500 mg tablet 500 mg PO BID #20 tabs 04/17/22 oxycodone 5 mg tablet 5 mg PO Q8H PRN pain #8 tabs 05/31/22 amoxicillin 875 mg-potassium 1 tab PO Q12H #20 tabs 08/01/22 clavulanate 125 mg tablet fluticasone propionate 50 1 spray intranasal Q12H #16 grams 08/01/22 mcg/actuation nasal spray,suspension (Flonase Allergy Relief) azithromycin 250 mg tablet 250 mg PO DAILY 4 days #4 tabs 08/05/22 acetaminophen 500 mg capsule 1,000 mg PO TID PRN fever or pain 10/12/22 #30 caps amoxicillin 500 mg tablet 500 mg PO BID 10 days #20 tabs 10/12/22 acetaminophen 325 mg tablet 650 mg PO Q6H PRN pain #30 tabs 11/18/22 (Tylenol) omeprazole 40 mg capsule,delayed 40 mg PO DAILY #20 caps 11/18/22 release ondansetron 4 mg disintegrating 4 mg PO Q6-8H PRN nausea and 11/22/22 tablet vomiting #7 tabs Allergies Allergy/AdvReac Type Severity Reaction Status Date / Time aspirin [ASA] Allergy Swelling Verified 10/12/22 15:49 caffeine Allergy Swelling Verified 10/12/22 15:49 morphine Allergy Palpitation Verified 10/12/22 15:49 s Review of Systems Review of Systems: Yes all other systems are reviewed and are negative [facility] Social History Social History Alcohol intake: never Smoked in Last 30 Days: No Use of substances other than those prescribed or required for medical reasons: No Advance Directives: No Advance Directives Information Provided: Yes Patient : Yes Physical Exam ED Vital Signs: Vital Signs - 24 hr 11/22/22 04:35 11/22/22 06:07 Temperature 98.3 F 98.3 F Pulse Rate 91 71 Respiratory Rate 18 17 Blood Pressure 117/68 111/67 Pulse Oximetry 99 100 Oxygen Delivery Method Room Air Room Air BMI result Body Mass Index 27.4 Appearance: Alert. Oriented X3. No acute distress. Eyes: No pallor or icterus ENT: Pharynx normal. Oral Mucosa moist Neck: Normal inspection. Neck supple. CVS: Normal heart rate and rhythm. Pulses normal. Respiratory: No respiratory distress. Equal air entry bilateral, no wheezing/rales/rhonchi Abdomen: Soft epigastric tenderness no right upper quadrant tenderness no guarding Bowel sounds are present, no mass palpable, no CVA tenderness Skin: Skin warm and dry. Normal skin color. Normal skin turgor. Extremities: No lower extremity edema. No calf tenderness Neuro: Oriented X 3. Medications Administered Discontinued Medications Generic Name Dose Route Start Last Admin Trade Name Freq PRN Reason Stop Dose Admin Sodium Chloride 1,000 mls @ 999 mls/hr 11/22/22 05:03 11/22/22 05:12 Ns IV 11/22/22 06:03 999 mls/hr .Q1H1M ONE Administration Ondansetron HCl 4 mg 11/22/22 05:03 11/22/22 05:12 Ondansetron Hcl 4 Mg/2 Ml Vial IVPUSH 11/22/22 05:04 4 mg ONCE ONE Administration Medical Decision Making Medical Decision Making MDM Narrative: Patient with acute nausea vomiting and diarrhea feeling much better after IV fluid labs are stable discharge patient home on Zofran patient able take p.o. fluids Consult Healthcare Provider Management of the patient was discussed with: Hospitalist Lab Data MDM Lab Attestation statement: I reviewed the patient's lab results. 11/22/22 04:40 11/22/22 04:40 Labs: Lab Results 11/22/22 11/22/22 Range/Units 04:40 04:40 WBC 5.4 (4.8-10.8) X10*3/uL RBC 3.56 L (4.20-5.50) X10*6/uL Hgb 9.9 L (12.0-16.0) g/dl Hct 29.9 L (37.0-47.0) % MCV 84.0 (80.0-98.0) fL MCH 27.8 (27.0-33.0) pg MCHC 33.1 (31.0-35.0) g/dl RDW 14.4 (11.0-16.0) % Plt Count 209 (160-400) X10*3/uL MPV 9.8 (9.4-12.3) fL Absolute Nucleated RBC 0.000 (0.0-0.012) X10*3/uL Nucleated RBC % (auto) 0.0 (0.0-0.2) /100WBC Sodium 137 (135-145) mmol/L Potassium 4.0 (3.3-5.1) mmol/L Chloride 107 (96-108) mmol/L Carbon Dioxide 22 (22-29) mmol/L Anion Gap 12 (12-20) BUN 10 (9-16) mg/dL Creatinine 0.64 (0.5-1.4) mg/dL Estim Creat Clear Calc 129.6 Estimated GFR > 60 Random Glucose 93 (60-115) mg/dL Calcium 8.5 D (8.4-10.2) mg/dL Total Bilirubin 0.2 (0.0-1.0) mg/dL AST 10 (5-31) U/L ALT 11 (0-31) U/L Alkaline Phosphatase 62 (39-117) U/L Total Protein 6.6 (6.5-8.0) g/dL Albumin 3.8 (3.5-5.0) g/dL Beta HCG, Quant [id number] mIU/mL Discharge Plan Discharge Clinical Impression: Acute gastroenteritis Patient Disposition: Home, Self-Care Instructions: Gastroenteritis (ED) Additional Instructions: Drink plenty of fluids Medicine for nausea as prescribed Follow-up with PCP Donnie jones?quido [facility] para las n?useas seg?n lo prescrito Seguimiento con PCP Prescriptions: New ondansetron 4 mg tablet,disintegrating 4 mg PO Q6-8H PRN (Reason: nausea and vomiting) Qty: 7 0RF No Action amoxicillin-pot clavulanate 875-125 mg tablet 1 tab PO BID 10 Days Qty: 20 0RF acetaminophen [Tylenol Extra Strength] 500 mg tablet 1,000 mg PO QID PRN (Reason: fever or pain) Qty: 14 0RF cyclobenzaprine 10 mg tablet 10 mg PO Q8H PRN (Reason: Muscle spasm) Qty: 14 0RF lidocaine [Lidoderm] 5 % adhesive patch,medicated 1 patch topical DAILY Qty: 15 0RF Rx Instructions: leave on most painful area for up to 12 hrs. May be substituted amoxicillin 500 mg tablet 500 mg PO BID Qty: 20 0RF amoxicillin 500 mg tablet 500 mg PO BID 10 Days Qty: 20 0RF acetaminophen 500 mg capsule 1,000 mg PO TID PRN (Reason: fever or pain) Qty: 30 0RF oxycodone 5 mg tablet 5 mg PO Q8H PRN (Reason: pain) Qty: 8 0RF Rx Instructions: Partial Fill upon patient request. amoxicillin-pot clavulanate 875-125 mg tablet 1 tab PO Q12H Qty: 20 0RF fluticasone propionate [Flonase Allergy Relief] 50 mcg/actuation spray,suspension 1 spray intranasal Q12H Qty: 16 0RF Rx Instructions: administer into each nostril azithromycin 250 mg tablet 250 mg PO DAILY 4 Days Qty: 4 0RF Rx Instructions: start on day 2 of therapy omeprazole 40 mg capsule,delayed release(DR/EC) 40 mg PO DAILY Qty: 20 0RF acetaminophen [Tylenol] 325 mg tablet 650 mg PO Q6H PRN (Reason: pain) Qty: 30 0RF Print Language: Croatian
[2022-11-22 05:10] LABS: Alanine Aminotransferase 11 U/L (0-31); Albumin Level 3.8 g/dL (3.5-5.0); Alkaline Phosphatase 62 U/L (39-117); Anion Gap 12 (12-20); Aspartate Amino Transferase 10 U/L (5-31); Bilirubin Total 0.2 mg/dL (0.0-1.0); Blood Urea Nitrogen 10 mg/dL (9-16); Calcium 8.5 mg/dL (8.4-10.2); Carbon Dioxide 22 mmol/L (22-29); Chloride 107 mmol/L (96-108); Creatinine Clr Calc Pharmacy 129.6; Estimated Glomerular Filt Rate > 60; Glucose Random 93 mg/dL (60-115); Sodium 137 mmol/L (135-145); Total Protein 6.6 g/dL (6.5-8.0)
[2022-11-22] MEDS: 0.9 % Sodium Chloride 1,000 ML 999 ML IV (05:12)
[2022-11-22] MEDS: ondansetron HCL 4 MG/2 ML VIAL IVPUSH (05:12)
--- NOTE | 2022-11-22 05:20 | PC.NURSE ---
iv placed in L AC 20 g. pt tolerated well. bloodwork obtained and sent down to lab. pt medicated according to mar. family at bedside
[2022-11-22 05:41] LABS: HCG Quantitative 103198 mIU/mL
[2022-11-22 06:07] VITALS: BP 111/67; PULSE 71; RESP 17; TEMP 36.8; O2SAT 100
[2022-11-22 06:21] LABS: Appearance Urine Clear; Color Urine Yellow; Glucose Urine UA Negative (Negative); Leukocyte Esterase Urine Negative (Negative); Nitrite Urine Negative (Negative); PH 7.5 (5.0-9.0); Urine Blood Negative (Negative); Urine Ketones Negative (Negative); Urine Protein Negative (Neg-Trace)
[2022-11-22 06:26] LABS: Bacteria Urine None Seen (None Seen); Hyaline Casts Urine 0-2 /LPF (0-2); RBC Urine 0-2 /HPF (0-2); Squamous Epithelial Cell Urine 0-2 /HPF (0-2); WBC Urine 0-5 /HPF (0-5)
--- NOTE | 2022-11-22 06:34 | PC.NURSE ---
family at bedside at time of discharge. pt partner translated at time of discharge. iv removed. pt ambulatory at discharge. pt provided with discharge packet. pt verbalized understanding of discharge place
== END 2022-11-22 06:37 | disposition home or self-care (01) ==
PROVIDERS: Emergency Provider Internal Medicine
DX: K52.9 Noninfective gastroenteritis and colitis, unspecified (principal); R11.2 Nausea with vomiting, unspecified
CPT/HCPCS: 36415; 80053; 81001; 84702; 85027; 93005; 96361; 96374; 99284; 99285; J2405

== ENCOUNTER 2022-11-30 23:02 | Emergency (ER) | payer MEDICAID, SELFPAY ==
[2022-11-30 23:07] VITALS: BP 120/62; PULSE 86; RESP 17; TEMP 36.5; O2SAT 97; BMI 29.2
--- NOTE | 2022-11-30 23:40 | ED.NAVMDI ---
HPI - Nausea/Vomiting/Diarrhea General Chief complaint: Nausea/Vomiting/Diarrhea <CELESTE Biswas Last Filed: 12/01/22 01:27> Stated complaint: N/V/ dizziness <CELESTE Biswas Last Filed: 12/01/22 01:27> Time Seen by Provider: 11/30/22 23:32 <CELESTE Biswas Last Filed: 12/01/22 01:27> Source: patient <CELESTE Biswas Last Filed: 12/01/22 01:27> Mode of arrival: ambulatory <CELESTE Biswas Last Filed: 12/01/22 01:27> Limitations: no limitations <CELESTE Biswas Last Filed: 12/01/22 01:27> History of Present Illness HPI Narrative: This is a 22-year-old female currently about 10 weeks presenting to the emergency department for evaluation of nausea and vomiting, nausea vomiting has been going on for the past few days, was recently prescribed doxylamine for nausea and vomiting but states it not working. Patient tells me that she is having acid reflux which is causing her to feel like she is having chest pain therefore she is worried. She reports a burning sensation from her epigastric region that goes up into her chest and into her mouth. She tells me she feels normal movement. Patient denies any abdominal pain, hematemesis, vaginal bleeding, cramping, back pain, headache, vision changes, fevers, chills. Followed by OBGYN regularly. <CELESTE Biswas Last Filed: 12/01/22 01:27> Related Data Home medications: Previous Rx's Medication Instructions Recorded acetaminophen 500 mg tablet 1,000 mg PO QID PRN fever or pain 10/27/21 (Tylenol Extra Strength) #14 tabs amoxicillin 875 mg-potassium 1 tab PO BID Pharyngitis 10 days 10/27/21 clavulanate 125 mg tablet #20 tabs cyclobenzaprine 10 mg tablet 10 mg PO Q8H PRN Muscle spasm #14 10/27/21 tabs lidocaine 5 % topical patch 1 patch topical DAILY pain #15 ea 10/27/21 (Lidoderm) amoxicillin 500 mg tablet 500 mg PO BID #20 tabs 04/17/22 oxycodone 5 mg tablet 5 mg PO Q8H PRN pain #8 tabs 05/31/22 amoxicillin 875 mg-potassium 1 tab PO Q12H #20 tabs 08/01/22 clavulanate 125 mg tablet fluticasone propionate 50 1 spray intranasal Q12H #16 grams 08/01/22 mcg/actuation nasal spray,suspension (Flonase Allergy Relief) azithromycin 250 mg tablet 250 mg PO DAILY 4 days #4 tabs 08/05/22 acetaminophen 500 mg capsule 1,000 mg PO TID PRN fever or pain 10/12/22 #30 caps amoxicillin 500 mg tablet 500 mg PO BID 10 days #20 tabs 10/12/22 acetaminophen 325 mg tablet 650 mg PO Q6H PRN pain #30 tabs 11/18/22 (Tylenol) omeprazole 40 mg capsule,delayed 40 mg PO DAILY #20 caps 11/18/22 release ondansetron 4 mg disintegrating 4 mg PO Q6-8H PRN nausea and 11/22/22 tablet vomiting #7 tabs aluminum-mag hydroxide-simethicone 5 ml PO 5XD PRN dyspepsia #355 mL 11/30/22 200 mg-200 mg-20 mg/5 mL oral susp (Maalox Advanced) cimetidine 800 mg tablet 800 mg PO BID #30 tabs 12/01/22 promethazine 25 mg rectal 25 mg W[place] Q6H PRN nausea and 12/01/22 suppository (Promethegan) vomiting #20 ea <CELESTE Biswas - Last Filed: 12/01/22 01:27> Allergies/Adverse reactions: Allergies Allergy/AdvReac Type Severity Reaction Status Date / Time aspirin [ASA] Allergy Swelling Verified 10/12/22 15:49 caffeine Allergy Swelling Verified 10/12/22 15:49 morphine Allergy Palpitation Verified 10/12/22 15:49 s <CELESTE Biswas Last Filed: 12/01/22 01:27> Review of Systems Review of Systems: Constitutional : No Weight loss, No Fever, No Chills, No Fatigue, No Malaise ENT/Mouth : No sore throat, No Rhinorrhea Eyes: No Eye Pain, No Swelling, No Redness Cardiovascular : No Chest Pain, No SOB, No Dyspnea on Exertion, No Orthopnea, No Edema, No Palpitations Respiratory : No Cough, No Sputum, No Wheezing Gastrointestinal : + Nausea, + Vomiting, No Diarrhea, No Constipation, No abdominal Pain, No Hematochezia, No Melena Genitourinary : No Dysuria, No Urinary Frequency, No Hematuria, Musculoskeletal : No joint pain, No Myalgias, No Joint Swelling Skin : No Skin Lesions, No rash Neuro : No Weakness, No Numbness, No Dizziness, No Headache Psych : No Anxiety/Panic, No Depression All other systems reviewed and are negative <CELESTE Biswas - Last Filed: 12/01/22 01:27> Yes all other systems are reviewed and are negative <CELESTE Biswas - Last Filed: 12/01/22 01:27> [facility] Past Medical History Attestation statement: The following information was validated with the patient. <CELESTE Biswas - Last Filed: 12/01/22 01:27> Source: old records reviewed and nursing notes reviewed <CELESTE Biswas - Last Filed: 12/01/22 01:27> Social History Social History: Social History Alcohol intake: never Smoked in Last 30 Days: No Use of substances other than those prescribed or required for medical reasons: No Advance Directives: No Advance Directives Information Provided: Yes <CELESTE Biswas - Last Filed: 12/01/22 01:27> Physical Exam Vital Signs: Vital Signs: Last Vital Signs Temp 98.0 F 12/01/22 02:45 Pulse 80 12/01/22 02:45 Resp 20 12/01/22 02:45 BP 116/57 L 12/01/22 02:45 Pulse Ox 100 12/01/22 02:45 O2 Del Method Room Air 12/01/22 02:45 BMI result Body Mass Index 29.2 vss <CELESTE Biswas - Last Filed: 12/01/22 01:27> Vital Signs: Last Vital Signs Temp 98.0 F 12/01/22 02:45 Pulse 80 12/01/22 02:45 Resp 20 12/01/22 02:45 BP 116/57 L 12/01/22 02:45 Pulse Ox 100 12/01/22 02:45 O2 Del Method Room Air 12/01/22 02:45 BMI result Body Mass Index 29.2 <Jean Pierre Mena MD - Last Filed: 12/01/22 05:00> Appearance: Alert.? Oriented X3.? No acute distress.? Head: Normocephalic, atraumatic, no step-offs or deformities Eyes: Pupils equal, round and reactive to light.? ENT: Pharynx normal.? Neck: Normal inspection.? Neck supple.? CVS: Normal heart rate and rhythm.? Pulses normal.? Respiratory: No respiratory distress.? Breath sounds normal.? Abdomen: Soft , abdomen, nontender, normoactive bowel sounds Skin: Skin warm and dry.? Normal skin color.? Normal skin turgor.? Extremities: No lower extremity edema.? No calf ttp. 5/5 strength to bilateral upper and lower extremities Back: No midline tenderness, no C-spine tenderness, full range of motion, no CVA tenderness bilaterally Neuro: Oriented X 3.? No motor deficit.? No sensory deficit. CN 2-12 intact <CELESTE Biswas - Last Filed: 12/01/22 01:27> Course Reevaluation(s) Reevaluation #1: CBC with a normocytic anemia likely normal factor in . Chemistry with no acute electrolyte abnormalities requiring intervention, negative troponin nonischemic EKG unlikely ACS. Likely GERD. <CELESTE Biswas - Last Filed: 12/01/22 01:27> Time: 00:33 <CELESTE Biswas - Last Filed: 12/01/22 01:27> Reevaluation #2: heart tones 152. Patient is still nauseous. Discussed this case with my attending who recommends Phenergan 12.5 mg IV once and discharging patient home with cimetidine 800 mg p.o. b.i.d.. Will have her follow-up with OBGYN however at this time pending evaluation. <CELESTE Biswas - Last Filed: 12/01/22 01:27> Time: 01:00 <CELESTE Biswas Last Filed: 12/01/22 01:27> Reevaluation #3: The patient is feeling better after the above treatment. She believes that the Phenergan did help with her nausea and vomiting. Patient was prescribed Phenergan (promethazine) 25 mg suppositories, 1 suppository every 6 hours as needed for nausea and vomiting. Patient was also prescribe cimetidine and Maalox for her dyspepsia. She was given printed and verbal instructions and discharged home. She was advised to follow-up with her OBGYN this week for re-evaluation and return if her symptoms get worse. <Jean Pierre Mena MD - Last Filed: 12/01/22 05:00> Time: 04:59 <Jean Pierre Mena MD - Last Filed: 12/01/22 05:00> Medications Administered Discontinued Medications Generic Name Dose Route Start Last Admin Trade Name Freq PRN Reason Stop Dose Admin Al Hydroxide/Mg Hydroxide 30 ml 11/30/22 23:53 12/01/22 00:06 Magnesium Hydrox/Alum Hydrox 30 Ml Oral.Susp PO 11/30/22 23:54 30 ml ONCE ONE Administration Diphenhydramine HCl 25 mg 11/30/22 23:53 12/01/22 00:06 Diphenhydramine Hcl 25 Mg Capsule PO 11/30/22 23:54 25 mg ONCE ONE Administration Sodium Chloride 500 mls @ 500 mls/hr 12/01/22 01:15 12/01/22 02:44 Ns IV 12/01/22 02:14 Infused .Q1H LATRELL Infusion Promethazine HCl 12.5 mg/ 50.5 mls @ 202 mls/hr 12/01/22 01:14 12/01/22 01:56 Sodium Chloride IV 12/01/22 01:15 Infused ONCE ONE Infusion Ondansetron HCl 4 mg 12/01/22 00:47 12/01/22 00:56 Ondansetron Odt 4 Mg Tab.Chris TRANSLINGU 12/01/22 00:48 4 mg ONCE ONE Administration <CELESTE Biswas - Last Filed: 12/01/22 01:27> Medications Administered Discontinued Medications Generic Name Dose Route Start Last Admin Trade Name Freq PRN Reason Stop Dose Admin Al Hydroxide/Mg Hydroxide 30 ml 11/30/22 23:53 12/01/22 00:06 Magnesium Hydrox/Alum Hydrox 30 Ml Oral.Susp PO 11/30/22 23:54 30 ml ONCE ONE Administration Diphenhydramine HCl 25 mg 11/30/22 23:53 12/01/22 00:06 Diphenhydramine Hcl 25 Mg Capsule PO 11/30/22 23:54 25 mg ONCE ONE Administration Sodium Chloride 500 mls @ 500 mls/hr 12/01/22 01:15 12/01/22 02:44 Ns IV 12/01/22 02:14 Infused .Q1H LATRELL Infusion Promethazine HCl 12.5 mg/ 50.5 mls @ 202 mls/hr 12/01/22 01:14 12/01/22 01:56 Sodium Chloride IV 12/01/22 01:15 Infused ONCE ONE Infusion Ondansetron HCl 4 mg 12/01/22 00:47 12/01/22 00:56 Ondansetron Odt 4 Mg Tab.Rapdis TRANSLINGU 12/01/22 00:48 4 mg ONCE ONE Administration <Jean Pierre Mena MD - Last Filed: 12/01/22 05:00> Medical Decision Making Medical Decision Making [facility] Narrative: 2349 22-year-old female currently around 10 weeks presents with nausea, vomiting for the past few days worsening. No abdominal pain, vaginal bleeding or discharge. Followed by OBGYN. Physical examination benign. No abdominal tenderness. No signs of acute abdomen, appendicitis, cholecystitis, diverticulitis, pancreatitis. This is likely viral illness versus hyperemesis . Unlikely demise. Will obtain heart tones. Unlikely threatened . Plan at this time Zofran. <CELESTE Biswas - Last Filed: 12/01/22 01:27> Differential Diagnosis Differential Diagnoses: The differential diagnosis associated with the presentation includes <CELESTE Biswas - Last Filed: 12/01/22 01:27> No signs of acute abdomen, appendicitis, cholecystitis, diverticulitis, pancreatitis. This is likely viral illness versus hyperemesis . Unlikely demise. Will obtain heart tones. Unlikely threatened . <CELESTE Biswas - Last Filed: 12/01/22 01:27> Admission/Observation Consideration of admission/observation: Escalation of care including admission/observation considered <CELESTE Biswas - Last Filed: 12/01/22 01:27> Unlikely <CELESTE Biswas - Last Filed: 12/01/22 01:27> Lab Data MDM Lab Attestation statement: I reviewed the patient's lab results. <CELESTE Biswas - Last Filed: 12/01/22 01:27> Result Diagrams: 12/01/22 00:00 12/01/22 00:00 <CELESTE Biswas - Last Filed: 12/01/22 01:27> Labs: Lab Results 12/01/22 12/01/22 12/01/22 Range/Units 00:00 00:00 00:00 WBC 5.3 (4.8-10.8) X10*3/uL RBC 3.82 L (4.20-5.50) X10*6/uL Hgb 10.7 L (12.0-16.0) g/dl Hct 31.8 L (37.0-47.0) % MCV 83.2 (80.0-98.0) fL MCH 28.0 (27.0-33.0) pg MCHC 33.6 (31.0-35.0) g/dl RDW 14.0 (11.0-16.0) % Plt Count 245 (160-400) X10*3/uL MPV 10.1 (9.4-12.3) fL Immature Gran % (Auto) 0.4 (0.0-0.4) % Neut % (Auto) 49.2 (45-73) % Lymph % (Auto) 38.0 (20-40) % Mobile % (Auto) 10.7 (2-11) % Eos % (Auto) 1.1 (0-4) % Baso % (Auto) 0.6 (0-2) % Lymph # (Auto) 2.0 (1.2-4.9) X10*3/uL Mobile # (Auto) 0.6 (0.1-1.2) X10*3/uL Eos # (Auto) 0.1 (0.0-0.4) X10*3/uL Baso # (Auto) 0.0 (0.0-0.2) X10*3/uL Abs Immat Gran (auto) 0.02 (0.00-0.03) X10*3/uL Absolute Neuts (auto) 2.6 (2.0-8.3) x10*3/uL Absolute Nucleated RBC 0.000 (0.0-0.012) X10*3/uL Nucleated RBC % (auto) 0.0 (0.0-0.2) /100WBC Sodium 137 (135-145) mmol/L Potassium 4.0 (3.3-5.1) mmol/L Chloride 105 (96-108) mmol/L Carbon Dioxide 22 (22-29) mmol/L Anion Gap 14 (12-20) BUN 8 L (9-16) mg/dL Creatinine 0.69 (0.5-1.4) mg/dL Estim Creat Clear Calc 123.8 Estimated GFR > 60 Random Glucose 94 (60-115) mg/dL Calcium 9.5 D (8.4-10.2) mg/dL Troponin I High Sens < 2.7 (<3.5-17.0) ng/L Lipase 24 (8-78) U/L <CELESTE Biswas - Last Filed: 12/01/22 01:27> Lab Results 12/01/22 12/01/22 12/01/22 Range/Units 00:00 00:00 00:00 WBC 5.3 (4.8-10.8) X10*3/uL RBC 3.82 L (4.20-5.50) X10*6/uL Hgb 10.7 L (12.0-16.0) g/dl Hct 31.8 L (37.0-47.0) % MCV 83.2 (80.0-98.0) fL MCH 28.0 (27.0-33.0) pg MCHC 33.6 (31.0-35.0) g/dl RDW 14.0 (11.0-16.0) % Plt Count 245 (160-400) X10*3/uL MPV 10.1 (9.4-12.3) fL Immature Gran % (Auto) 0.4 (0.0-0.4) % Neut % (Auto) 49.2 (45-73) % Lymph % (Auto) 38.0 (20-40) % Mobile % (Auto) 10.7 (2-11) % Eos % (Auto) 1.1 (0-4) % Baso % (Auto) 0.6 (0-2) % Lymph # (Auto) 2.0 (1.2-4.9) X10*3/uL Mobile # (Auto) 0.6 (0.1-1.2) X10*3/uL Eos # (Auto) 0.1 (0.0-0.4) X10*3/uL Baso # (Auto) 0.0 (0.0-0.2) X10*3/uL Abs Immat Gran (auto) 0.02 (0.00-0.03) X10*3/uL Absolute Neuts (auto) 2.6 (2.0-8.3) x10*3/uL Absolute Nucleated RBC 0.000 (0.0-0.012) X10*3/uL Nucleated RBC % (auto) 0.0 (0.0-0.2) /100WBC Sodium 137 (135-145) mmol/L Potassium 4.0 (3.3-5.1) mmol/L Chloride 105 (96-108) mmol/L Carbon Dioxide 22 (22-29) mmol/L Anion Gap 14 (12-20) BUN 8 L (9-16) mg/dL Creatinine 0.69 (0.5-1.4) mg/dL Estim Creat Clear Calc 123.8 Estimated GFR > 60 Random Glucose 94 (60-115) mg/dL Calcium 9.5 D (8.4-10.2) mg/dL Troponin I High Sens < 2.7 (<3.5-17.0) ng/L Lipase 24 (8-78) U/L <Jean Pierre Mena MD - Last Filed: 12/01/22 05:00> Independent Interpretation I performed an independent interpretation of an: EKG (Nonischemic) <CELESTE Biswas - Last Filed: 12/01/22 01:27> Chronic Conditions Patient?s care impacted by: Other (Zofran) <CELESTE Biswas - Last Filed: 12/01/22 01:27> Core Measures AMI core measures followed: Yes <CELESTE Biswas Last Filed: 12/01/22 01:27> Measure exclusions: not indicated <CELESTE Biswas Last Filed: 12/01/22 01:27> Critical Care Time Critical Care Time Critical Care Time: No <CELESTE Biswas Last Filed: 12/01/22 01:27> Discharge Plan Discharge Clinical Impression: Nausea & vomiting <CELESTE Biswas Last Filed: 12/01/22 01:27> Patient Disposition: Home, Self-Care <CELESTE Biswas Last Filed: 12/01/22 01:27> Instructions: Acute Nausea and Vomiting (ED) <CELESTE Biswas Last Filed: 12/01/22 01:27> Additional Instructions: Take Phenergan (promethazine) 25 mg suppositories, 1 suppository per rectum every 6 hours as needed for nausea and vomiting Take this medication instead of the nausea vomiting medicine that your doctor prescribed Take cimetidine 800 mg pills, 1 pill every 12 hours. This medication reduces the amount of acid that your stomach produces and helps with the heartburn symptoms. Also take Maalox 5 mL 5 times a day as needed for heartburn as well. Follow-up with your primary care provider this week. Please follow-up with OBGYN. Return to the emergency department with new or worsening symptoms. Such as fevers, chills, chest pain, shortness of breath, nausea, vomiting, dizziness, headache, vision changes, lethargy, vaginal bleeding or discharge In case of emergency call 911 <CELESTE Biswas Last Filed: 12/01/22 01:27> Prescriptions: New alum-mag hydroxide-simeth [Maalox Advanced] 200-200-20 mg/5 mL suspension 5 ml PO 5XD PRN (Reason: dyspepsia) Qty: 355 0RF Rx Instructions: administer between meals and at bedtime cimetidine 800 mg tablet 800 mg PO BID Qty: 30 0RF Rx Instructions: administer with meals promethazine [Promethegan] 25 mg suppository 25 mg WY Q6H PRN (Reason: nausea and vomiting) Qty: 20 0RF No Action amoxicillin-pot clavulanate 875-125 mg tablet 1 tab PO BID 10 Days Qty: 20 0RF acetaminophen [Tylenol Extra Strength] 500 mg tablet 1,000 mg PO QID PRN (Reason: fever or pain) Qty: 14 0RF cyclobenzaprine 10 mg tablet 10 mg PO Q8H PRN (Reason: Muscle spasm) Qty: 14 0RF lidocaine [Lidoderm] 5 % adhesive patch,medicated 1 patch topical DAILY Qty: 15 0RF Rx Instructions: leave on most painful area for up to 12 hrs. May be substituted amoxicillin 500 mg tablet 500 mg PO BID Qty: 20 0RF amoxicillin 500 mg tablet 500 mg PO BID 10 Days Qty: 20 0RF acetaminophen 500 mg capsule 1,000 mg PO TID PRN (Reason: fever or pain) Qty: 30 0RF oxycodone 5 mg tablet 5 mg PO Q8H PRN (Reason: pain) Qty: 8 0RF Rx Instructions: Partial Fill upon patient request. amoxicillin-pot clavulanate 875-125 mg tablet 1 tab PO Q12H Qty: 20 0RF fluticasone propionate [Flonase Allergy Relief] 50 mcg/actuation spray,suspension 1 spray intranasal Q12H Qty: 16 0RF Rx Instructions: administer into each nostril azithromycin 250 mg tablet 250 mg PO DAILY 4 Days Qty: 4 0RF Rx Instructions: start on day 2 of therapy omeprazole 40 mg capsule,delayed release(DR/EC) 40 mg PO DAILY Qty: 20 0RF acetaminophen [Tylenol] 325 mg tablet 650 mg PO Q6H PRN (Reason: pain) Qty: 30 0RF ondansetron 4 mg tablet,disintegrating 4 mg PO Q6-8H PRN (Reason: nausea and vomiting) Qty: 7 0RF <CELESTE Biswas - Last Filed: 12/01/22 01:27> Referrals: [facility] [Primary Care Provider] - 2 days <CELESTE Biswas - Last Filed: 12/01/22 01:27>
--- NOTE | 2022-11-30 23:51 | ECG_ITS ---
Test Reason : CHESTPAIN Blood Pressure : / mmHG Vent. Rate : 074 BPM Atrial Rate : 074 BPM P-R Int : 134 ms QRS Dur : 086 ms QT Int : 380 ms P-R-T Axes : 058 080 050 degrees QTc Int : 421 ms Normal sinus rhythm Normal ECG When compared with ECG of 22-NOV-2022 04:21, No significant change was found Referred By: Leena Greco Electronically Signed By:KATIANA KENNEY MD
[2022-12-01 00:06] LABS: Basophils Percent Auto 0.6 % (0-2); Eosinophils Absolute Auto 0.1 X10*3/uL (0.0-0.4); Eosinophils Percent Auto 1.1 % (0-4); Hematocrit 31.8 % (37.0-47.0); Hemoglobin 10.7 g/dl (12.0-16.0); Imm Gran Abs Auto 0.02 X10*3/uL (0.00-0.03); Imm Gran Pct Auto 0.4 % (0.0-0.4); MANUAL DIFF FLAG NO; Mean Corpuscular HGB Conc 33.6 g/dl (31.0-35.0); Mean Corpuscular Volume 83.2 fL (80.0-98.0); Mean Platelet Volume 10.1 fL (9.4-12.3); Monocytes Absolute Auto 0.6 X10*3/uL (0.1-1.2); Monocytes Percent Auto 10.7 % (2-11); Neutrophils Absolute Auto 2.6 x10*3/uL (2.0-8.3); Neutrophils Percent Auto 49.2 % (45-73); Platelet Count 245 X10*3/uL (160-400); Red Blood Count 3.82 X10*6/uL (4.20-5.50); White Blood Count 5.3 X10*3/uL (4.8-10.8)
[2022-12-01] MEDS: Magnesium Hydrox/Alum Hydrox 30 ML ORAL.SUSP PO (00:06)
[2022-12-01] MEDS: diphenhydrAMINE HCL 25 MG CAPSULE PO (00:06)
[2022-12-01 00:21] LABS: Anion Gap 14 (12-20); Blood Urea Nitrogen 8 mg/dL (9-16); Calcium 9.5 mg/dL (8.4-10.2); Carbon Dioxide 22 mmol/L (22-29); Chloride 105 mmol/L (96-108); Creatinine Clr Calc Pharmacy 123.8; Estimated Glomerular Filt Rate > 60; Glucose Random 94 mg/dL (60-115); Sodium 137 mmol/L (135-145)
[2022-12-01 00:30] LABS: Troponin-I High Sensitivity < 2.7 ng/L (<3.5-17.0)
[2022-12-01 00:54] LABS: Lipase 24 U/L (8-78)
[2022-12-01] MEDS: Ondansetron ODT 4 MG TAB.RAPDIS TRANSLINGU (00:56)
[2022-12-01] MEDS: 0.9 % Sodium Chloride 500 ML IV (01:35)
[2022-12-01 02:45] VITALS: BP 116/57; PULSE 80; RESP 20; TEMP 36.7; O2SAT 100
== END 2022-12-01 05:47 | disposition home or self-care (01) ==
PROVIDERS: Physician Assistant; Emergency Provider Emergency Medicine Emergency Medical Services
DX: O26.891 Other specified pregnancy related conditions, first trimester (principal); R11.2 Nausea with vomiting, unspecified; Z3A.10 10 weeks gestation of pregnancy
CPT/HCPCS: 36415; 80048; 83690; 84484; 85025; 93005; 96361; 96365; 99284; 99285; J2550

== ENCOUNTER 2022-12-22 22:23 | Emergency (ER) | payer MEDICAID, SELFPAY ==
[2022-12-22 22:36] VITALS: BP 128/79; PULSE 75; RESP 16; TEMP 37; O2SAT 97; BMI 24.8
[2022-12-22 22:56] LABS: UPreg QC Valid YES
[2022-12-22 22:58] LABS: Appearance Urine Clear; Color Urine Yellow; Glucose Urine UA Negative (Negative); Leukocyte Esterase Urine Negative (Negative); Nitrite Urine Negative (Negative); Specific Gravity - Urine 1.025 (1.005-1.025); Urine Blood Negative (Negative); Urine Ketones Negative (Negative); Urine Protein Negative (Neg-Trace)
[2022-12-22 23:00] LABS: Urine Pregnancy POSITIVE (NEGATIVE)
[2022-12-22] MEDS: Ketorolac Tromethamine 30 MG/ML VIAL IM (23:03)
[2022-12-22 23:15] LABS: MANUAL DIFF FLAG NO
[2022-12-22 23:16] LABS: Basophils Percent Auto 0.6 % (0-2); Eosinophils Absolute Auto 0.1 X10*3/uL (0.0-0.4); Eosinophils Percent Auto 1.1 % (0-4); Hematocrit 32.8 % (37.0-47.0); Hemoglobin 11.1 g/dl (12.0-16.0); Imm Gran Abs Auto 0.03 X10*3/uL (0.00-0.03); Imm Gran Pct Auto 0.4 % (0.0-0.4); Lymphocytes Absolute Auto 2.8 X10*3/uL (1.2-4.9); Lymphocytes Percent Auto 39.1 % (20-40); Mean Corpuscular HGB Conc 33.8 g/dl (31.0-35.0); Mean Corpuscular Volume 82.8 fL (80.0-98.0); Mean Platelet Volume 10.1 fL (9.4-12.3); Monocytes Absolute Auto 0.6 X10*3/uL (0.1-1.2); Monocytes Percent Auto 8.1 % (2-11); Neutrophils Absolute Auto 3.6 x10*3/uL (2.0-8.3); Neutrophils Percent Auto 50.7 % (45-73); Platelet Count 261 X10*3/uL (160-400); Red Blood Count 3.96 X10*6/uL (4.20-5.50); Red Cell Distribution Width 13.5 % (11.0-16.0); White Blood Count 7.2 X10*3/uL (4.8-10.8)
--- NOTE | 2022-12-22 23:20 | ED_ITS ---
HPI - General Adult General Chief complaint: Vaginal Bleeding Stated complaint: vaginal bleeding,lower abd pain Time Seen by Provider: 12/22/22 22:48 Source: patient, RN notes reviewed and old records reviewed Mode of arrival: ambulatory Limitations: no limitations History of Present Illness HPI narrative: 22-year-old female presents for evaluation of lower abdominal/pelvic pain. Patient reports that she was approximately 12 weeks . This was the patient's 3rd elective She had a D&C at [facility] days ago She reports that she was told she could have some discomfort for the next day or 2 and then the pain go away She reports that she has been having severe abdominal pain since yesterday that got worse today. Her pain is 10/10 Reports very minimal vaginal bleeding No difficulty urinating No other complaints or concerns at this time. Related Data Previous Rx's Medication Instructions Recorded acetaminophen 500 mg tablet 1,000 mg PO QID PRN fever or pain 10/27/21 (Tylenol Extra Strength) #14 tabs amoxicillin 875 mg-potassium 1 tab PO BID Pharyngitis 10 days 10/27/21 clavulanate 125 mg tablet #20 tabs cyclobenzaprine 10 mg tablet 10 mg PO Q8H PRN Muscle spasm #14 10/27/21 tabs lidocaine 5 % topical patch 1 patch topical DAILY pain #15 ea 10/27/21 (Lidoderm) amoxicillin 500 mg tablet 500 mg PO BID #20 tabs 04/17/22 oxycodone 5 mg tablet 5 mg PO Q8H PRN pain #8 tabs 05/31/22 amoxicillin 875 mg-potassium 1 tab PO Q12H #20 tabs 08/01/22 clavulanate 125 mg tablet fluticasone propionate 50 1 spray intranasal Q12H #16 grams 08/01/22 mcg/actuation nasal spray,suspension (Flonase Allergy Relief) azithromycin 250 mg tablet 250 mg PO DAILY 4 days #4 tabs 08/05/22 acetaminophen 500 mg capsule 1,000 mg PO TID PRN fever or pain 10/12/22 #30 caps amoxicillin 500 mg tablet 500 mg PO BID 10 days #20 tabs 10/12/22 acetaminophen 325 mg tablet 650 mg PO Q6H PRN pain #30 tabs 11/18/22 (Tylenol) omeprazole 40 mg capsule,delayed 40 mg PO DAILY #20 caps 11/18/22 release ondansetron 4 mg disintegrating 4 mg PO Q6-8H PRN nausea and 11/22/22 tablet vomiting #7 tabs aluminum-mag hydroxide-simethicone 5 ml PO 5XD PRN dyspepsia #355 mL 11/30/22 200 mg-200 mg-20 mg/5 mL oral susp (Maalox Advanced) cimetidine 800 mg tablet 800 mg PO BID #30 tabs 12/01/22 promethazine 25 mg rectal 25 mg IN Q6H PRN nausea and 12/01/22 suppository (Promethegan) vomiting #20 ea oxycodone 5 mg tablet 5 mg PO Q6H PRN severe pain (scale 12/23/22 score 7-10) #12 tabs Allergies Allergy/AdvReac Type Severity Reaction Status Date / Time aspirin [ASA] Allergy Swelling Verified 10/12/22 15:49 caffeine Allergy Swelling Verified 10/12/22 15:49 morphine Allergy Palpitation Verified 10/12/22 15:49 s Review of Systems Cardiovascular: Cardiovascular: Denies dyspnea Respiratory: Respiratory: Denies cough and Denies dyspnea Gastrointestinal: Gastrointestinal: Reports abdominal pain, Denies diarrhea, Denies nausea and Denies vomiting Genitourinary: Genitourinary: Reports pelvic pain and Denies vaginal discharge Musculoskeletal: Musculoskeletal: Denies back pain Integumentary/Breasts: Skin/Breast: Denies rash PMFSH Social History Social History Alcohol intake: never Smoked in Last 30 Days: No Use of substances other than those prescribed or required for medical reasons: No Advance Directives: No Advance Directives Information Provided: Yes Patient : No Physical Exam ED Vital Signs: Vital Signs - 24 hr 12/22/22 22:36 12/23/22 00:29 Temperature 98.6 F 98.6 F Pulse Rate 75 77 Respiratory Rate 16 14 Blood Pressure 128/79 109/66 Pulse Oximetry 97 97 Oxygen Delivery Method Room Air Room Air BMI result Body Mass Index 24.8 Const General: healthy appearing, comfortable, no acute distress, alert and awake Nutritional Appearance: well nourished Orientation/consciousness: patient oriented x3 Eyes Eyelids: Yes eyelids normal Conjunctivae: conjunctivae normal Sclerae: sclerae normal Corneas: corneas normal Pupils: Equal, round and reactive pupils present EOM: EOMs intact bilaterally Resp Effort & Inspection: normal respiratory effort, able to speak in complete sentences and not labored Cardio Rate: regular rate Rhythm: regular rhythm GI Inspection: No distended Palpation (GI): Soft to palpation, not firm, nontender, no guarding and not rigid Auscultation: normoactive bowel sounds Skin General skin exam: no rashes or lesions noted and elasticity normal Neuro General: patient oriented x3 Cranial nerves: Yes Equal, round and reactive pupils present and Yes Bilaterally intact EOM present Cognition (Neuro): normal cognition Extrem Other: Moving all extremities well without any obvious deformities Course Reevaluation(s) Reevaluation #1: Toradol did not seem to help the patient's pain. I offered to do a pelvic examination when patient tried oxycodone as this is what has helped with her previous pain after abortions Time: 00:20 Reevaluation #2: Patient's pain is better after receiving oxycodone, will discharge her with same. She will follow-up with her OBGYN Time: 01:22 Medications Administered Discontinued Medications Generic Name Dose Route Start Last Admin Trade Name Freq PRN Reason Stop Dose Admin Ketorolac Tromethamine 30 mg 12/22/22 22:59 12/22/22 23:03 Ketorolac Tromethamine 30 Mg/Ml Vial IM 12/22/22 23:00 30 mg ONCE ONE Administration Oxycodone HCl 10 mg 12/23/22 00:20 12/23/22 00:27 Oxycodone Hcl Immed Release 5 Mg Tablet PO 12/23/22 00:21 10 mg ONCE ONE Administration Medical Decision Making Medical Decision Making MDM Narrative: 22-year-old female presents for evaluation of pelvic pain after a D&C 5 days ago. Her pain is most likely cramps related to her recent surgery. Less likely to be retained products of conception as she has already had a D&C. Will check labs, UA. The patient medical a Toradol IM. Differential Diagnosis Postop pain Retained products of conception UTI Pelvic pain Lab Data 12/22/22 23:11 12/22/22 23:11 Labs: Lab Results 12/22/22 12/22/22 12/22/22 Range/Units 22:50 22:50 23:11 WBC 7.2 (4.8-10.8) X10*3/uL RBC 3.96 L (4.20-5.50) X10*6/uL Hgb 11.1 L (12.0-16.0) g/dl Hct 32.8 L (37.0-47.0) % MCV 82.8 (80.0-98.0) fL MCH 28.0 (27.0-33.0) pg MCHC 33.8 (31.0-35.0) g/dl RDW 13.5 (11.0-16.0) % Plt Count 261 (160-400) X10*3/uL MPV 10.1 (9.4-12.3) fL Immature Gran % (Auto) 0.4 (0.0-0.4) % Neut % (Auto) 50.7 (45-73) % Lymph % (Auto) 39.1 (20-40) % [place] % (Auto) 8.1 (2-11) % Eos % (Auto) 1.1 (0-4) % Baso % (Auto) 0.6 (0-2) % Lymph # (Auto) 2.8 (1.2-4.9) X10*3/uL [place] # (Auto) 0.6 (0.1-1.2) X10*3/uL Eos # (Auto) 0.1 (0.0-0.4) X10*3/uL Baso # (Auto) 0.0 (0.0-0.2) X10*3/uL Abs Immat Gran (auto) 0.03 (0.00-0.03) X10*3/uL Absolute Neuts (auto) 3.6 (2.0-8.3) x10*3/uL Absolute Nucleated RBC 0.000 (0.0-0.012) X10*3/uL Nucleated RBC % (auto) 0.0 (0.0-0.2) /100WBC Sodium (135-145) mmol/L Potassium (3.3-5.1) mmol/L Chloride (96-108) mmol/L Carbon Dioxide (22-29) mmol/L Anion Gap (12-20) BUN (9-16) mg/dL Creatinine (0.5-1.4) mg/dL Estim Creat Clear Calc Estimated GFR Random Glucose (60-115) mg/dL Calcium (8.4-10.2) mg/dL Urine Color Yellow Urine Appearance Clear Urine pH 6.0 (5.0-9.0) Ur Specific [place] 1.025 (1.005-1.025) Urine Protein Negative (Neg-Trace) mg/dL Urine Glucose (UA) Negative (Negative) mg/dL Urine Ketones Negative (Negative) mg/dL Urine Blood Negative (Negative) Urine Nitrite Negative (Negative) Ur Leukocyte Esterase Negative (Negative) Urine Test POSITIVE H (NEGATIVE) 12/22/22 Range/Units 23:11 WBC (4.8-10.8) X10*3/uL RBC (4.20-5.50) X10*6/uL Hgb (12.0-16.0) g/dl Hct (37.0-47.0) % MCV (80.0-98.0) fL MCH (27.0-33.0) pg MCHC (31.0-35.0) g/dl RDW (11.0-16.0) % Plt Count (160-400) X10*3/uL MPV (9.4-12.3) fL Immature Gran % (Auto) (0.0-0.4) % Neut % (Auto) (45-73) % Lymph % (Auto) (20-40) % [place] % (Auto) (2-11) % Eos % (Auto) (0-4) % Baso % (Auto) (0-2) % Lymph # (Auto) (1.2-4.9) X10*3/uL [place] # (Auto) (0.1-1.2) X10*3/uL Eos # (Auto) (0.0-0.4) X10*3/uL Baso # (Auto) (0.0-0.2) X10*3/uL Abs Immat Gran (auto) (0.00-0.03) X10*3/uL Absolute Neuts (auto) (2.0-8.3) x10*3/uL Absolute Nucleated RBC (0.0-0.012) X10*3/uL Nucleated RBC % (auto) (0.0-0.2) /100WBC Sodium 140 (135-145) mmol/L Potassium 4.2 (3.3-5.1) mmol/L Chloride 107 (96-108) mmol/L Carbon Dioxide 22 (22-29) mmol/L Anion Gap 15 (12-20) BUN 9 (9-16) mg/dL Creatinine 0.75 (0.5-1.4) mg/dL Estim Creat Clear Calc 105.6 Estimated GFR > 60 Random Glucose 96 (60-115) mg/dL Calcium 9.5 (8.4-10.2) mg/dL Urine Color Urine Appearance Urine pH (5.0-9.0) Ur Specific [place] (1.005-1.025) Urine Protein (Neg-Trace) mg/dL Urine Glucose (UA) (Negative) mg/dL Urine Ketones (Negative) mg/dL Urine Blood (Negative) Urine Nitrite (Negative) Ur Leukocyte Esterase (Negative) Urine Test (NEGATIVE) Discharge Plan Discharge Clinical Impression: Pelvic pain Patient Disposition: Home, Self-Care Instructions: Pelvic Pain (ED) Additional Instructions: Your pain is most likely related to spasms after a D&C from a few days ago. You may use Motrin and Tylenol for pain Use oxycodone for severe, breakthrough pain This may make you sleepy, did not drink alcohol or drive after taking it Call your OBGYN tomorrow morning to schedule follow-up Prescriptions: New oxycodone 5 mg tablet 5 mg PO Q6H PRN (Reason: severe pain (scale score 7-10)) Qty: 12 0RF Rx Instructions: Partial Fill upon patient request. No Action amoxicillin-pot clavulanate 875-125 mg tablet 1 tab PO BID 10 Days Qty: 20 0RF acetaminophen [Tylenol Extra Strength] 500 mg tablet 1,000 mg PO QID PRN (Reason: fever or pain) Qty: 14 0RF cyclobenzaprine 10 mg tablet 10 mg PO Q8H PRN (Reason: Muscle spasm) Qty: 14 0RF lidocaine [Lidoderm] 5 % adhesive patch,medicated 1 patch topical DAILY Qty: 15 0RF Rx Instructions: leave on most painful area for up to 12 hrs. May be substituted amoxicillin 500 mg tablet 500 mg PO BID Qty: 20 0RF amoxicillin 500 mg tablet 500 mg PO BID 10 Days Qty: 20 0RF acetaminophen 500 mg capsule 1,000 mg PO TID PRN (Reason: fever or pain) Qty: 30 0RF oxycodone 5 mg tablet 5 mg PO Q8H PRN (Reason: pain) Qty: 8 0RF Rx Instructions: Partial Fill upon patient request. amoxicillin-pot clavulanate 875-125 mg tablet 1 tab PO Q12H Qty: 20 0RF fluticasone propionate [Flonase Allergy Relief] 50 mcg/actuation spray,suspension 1 spray intranasal Q12H Qty: 16 0RF Rx Instructions: administer into each nostril azithromycin 250 mg tablet 250 mg PO DAILY 4 Days Qty: 4 0RF Rx Instructions: start on day 2 of therapy omeprazole 40 mg capsule,delayed release(DR/EC) 40 mg PO DAILY Qty: 20 0RF acetaminophen [Tylenol] 325 mg tablet 650 mg PO Q6H PRN (Reason: pain) Qty: 30 0RF ondansetron 4 mg tablet,disintegrating 4 mg PO Q6-8H PRN (Reason: nausea and vomiting) Qty: 7 0RF alum-mag hydroxide-simeth [Maalox Advanced] 200-200-20 mg/5 mL suspension 5 ml PO 5XD PRN (Reason: dyspepsia) Qty: 355 0RF Rx Instructions: administer between meals and at bedtime cimetidine 800 mg tablet 800 mg PO BID Qty: 30 0RF Rx Instructions: administer with meals promethazine [Promethegan] 25 mg suppository 25 mg IN Q6H PRN (Reason: nausea and vomiting) Qty: 20 0RF
[2022-12-22 23:31] LABS: Anion Gap 15 (12-20); Blood Urea Nitrogen 9 mg/dL (9-16); Calcium 9.5 mg/dL (8.4-10.2); Carbon Dioxide 22 mmol/L (22-29); Chloride 107 mmol/L (96-108); Creatinine Clr Calc Pharmacy 105.6; Estimated Glomerular Filt Rate > 60; Glucose Random 96 mg/dL (60-115); Potassium 4.2 mmol/L (3.3-5.1); Sodium 140 mmol/L (135-145)
[2022-12-23] MEDS: oxyCODONE HCl Immed Release 5 MG TABLET 10 MG PO (00:27)
[2022-12-23 00:29] VITALS: BP 109/66; PULSE 77; RESP 14; TEMP 37; O2SAT 97
== END 2022-12-23 01:46 | disposition home or self-care (01) ==
PROVIDERS: Physician Assistant; Student in an Organized Health Care Education/Training Program; Emergency Provider Emergency Medicine
DX: R10.2 Pelvic and perineal pain (principal)
CPT/HCPCS: 36415; 80048; 81003; 81025; 85025; 96372; 99284; J1885

== ENCOUNTER 2023-03-11 13:03 | Emergency (ER) | payer MEDICAID, SELFPAY ==
--- NOTE | 2023-03-11 13:28 | ED.ABDPAIN ---
HPI - Abdominal Pain General Chief Complaint: Urogenital-Female Stated Complaint: abd pain Time Seen by Provider: 03/11/23 16:32 Source: patient, RN notes reviewed, old records reviewed and [employer] Mode of arrival: ambulatory Limitations: language barrier History of Present Illness HPI narrative: 22-year-old female presents for evaluation of lower abdominal pain. Patient reports that she had the pain for the last 4 days on all She also reports that she is ?3 days late from my menstrual cycle. She states in the past when she has been late ?I have been with a bad . ? She reports having had 3- urine test but is requesting a blood test Denies any abnormal vaginal bleeding or discharge Denies any burning with urination Had a D&C a few months ago at [facility] due to an elective Related Data Previous Rx's Medication Instructions Recorded acetaminophen 500 mg tablet 1,000 mg PO QID PRN fever or pain 10/27/21 (Tylenol Extra Strength) #14 tabs amoxicillin 875 mg-potassium 1 tab PO BID Pharyngitis 10 days 10/27/21 clavulanate 125 mg tablet #20 tabs cyclobenzaprine 10 mg tablet 10 mg PO Q8H PRN Muscle spasm #14 10/27/21 tabs lidocaine 5 % topical patch 1 patch topical DAILY pain #15 ea 10/27/21 (Lidoderm) amoxicillin 500 mg tablet 500 mg PO BID #20 tabs 04/17/22 oxycodone 5 mg tablet 5 mg PO Q8H PRN pain #8 tabs 05/31/22 amoxicillin 875 mg-potassium 1 tab PO Q12H #20 tabs 08/01/22 clavulanate 125 mg tablet fluticasone propionate 50 1 spray intranasal Q12H #16 grams 08/01/22 mcg/actuation nasal spray,suspension (Flonase Allergy Relief) azithromycin 250 mg tablet 250 mg PO DAILY 4 days #4 tabs 08/05/22 acetaminophen 500 mg capsule 1,000 mg PO TID PRN fever or pain 10/12/22 #30 caps amoxicillin 500 mg tablet 500 mg PO BID 10 days #20 tabs 10/12/22 acetaminophen 325 mg tablet 650 mg PO Q6H PRN pain #30 tabs 11/18/22 (Tylenol) omeprazole 40 mg capsule,delayed 40 mg PO DAILY #20 caps 11/18/22 release ondansetron 4 mg disintegrating 4 mg PO Q6-8H PRN nausea and 11/22/22 tablet vomiting #7 tabs aluminum-mag hydroxide-simethicone 5 ml PO 5XD PRN dyspepsia #355 mL 11/30/22 200 mg-200 mg-20 mg/5 mL oral susp (Maalox Advanced) cimetidine 800 mg tablet 800 mg PO BID #30 tabs 12/01/22 promethazine 25 mg rectal 25 mg MA Q6H PRN nausea and 12/01/22 suppository (Promethegan) vomiting #20 ea oxycodone 5 mg tablet 5 mg PO Q6H PRN severe pain (scale 12/23/22 score 7-10) #12 tabs Allergies Allergy/AdvReac Type Severity Reaction Status Date / Time aspirin [ASA] Allergy Swelling Verified 10/12/22 15:49 caffeine Allergy Swelling Verified 10/12/22 15:49 morphine Allergy Palpitation Verified 10/12/22 15:49 s Review of Systems Constitutional: Denies body ache(s), Denies chills, Denies fatigue, Denies fever(s) and Denies headache(s) Denies headache(s) Cardiovascular: Denies chest pain and Denies dyspnea Respiratory: Denies cough and Denies dyspnea Gastrointestinal: Denies constipation and Denies vomiting Genitourinary: Denies dysuria Denies headache(s) and Denies focal weakness Endocrine: Denies fatigue PMFSH Social History Social History Alcohol intake: never Advance Directives: No Advance Directives Information Provided: Yes Physical Exam ED Vital Signs: Vital Signs - 24 hr 03/11/23 13:29 Temperature 98.1 F Pulse Rate 75 Respiratory Rate 18 Blood Pressure 134/70 Pulse Oximetry 100 Oxygen Delivery Method Room Air BMI result Body Mass Index 27.8 Const General: healthy appearing, comfortable, no acute distress, alert and awake Nutritional Appearance: well nourished Orientation/consciousness: patient oriented x3 HENMT Head: Yes normocephalic and Yes atraumatic Eyes Eyelids: Yes eyelids normal Conjunctivae: conjunctivae normal Sclerae: sclerae normal Corneas: corneas normal Pupils: Equal, round and reactive pupils present EOM: EOMs intact bilaterally Neck Neck: Yes full ROM Resp Effort & Inspection: normal respiratory effort, able to speak in complete sentences and not labored Cardio Rate: regular rate Rhythm: regular rhythm GI Inspection: No distended Palpation (GI): Soft to palpation, not firm, nontender, no guarding and not rigid Skin General skin exam: no rashes or lesions noted and elasticity normal Neuro General: patient oriented x3 Cranial nerves: Yes Equal, round and reactive pupils present and Yes Bilaterally intact EOM present Cognition (Neuro): normal cognition Extrem Other: Moving all extremities well without any obvious deformities Course Course Course Narrative: RME: 22yo F presenting to the ED c/o lower abdominal discomfort & 3 days w/missed menstruation. Admits took 3 at home tests which were negative. requesting blood test Labs, UA ordered Full HPI, ROS and PE to be performed by primary ED provider. Reevaluation(s) Reevaluation #1: UA reviewed and negative for UTI. The patient is stable for discharge Time: 17:02 Medical Decision Making Medical Decision Making [facility] Narrative: 22-year-old female presents for evaluation abdominal pain. She is concerned that she is she is sexually active, not on control and 3 days late for her menstrual cycle. ECG was undetectable. Any can the patient is not . Her physical exam and and labs are reassuring. We will obtain a UA to evaluate for UTI. Differential Diagnosis Differential Diagnoses: The differential diagnosis associated with the presentation includes Abdominal pain UTI Missed Ovarian cyst Uterine fibroids Lab Data [facility] Lab Attestation statement: I reviewed the patient's lab results. Mild leukopenia to 3.9. The patient has had similar labs in the past. Mild normocytic anemia with a hemoglobin 11.2 and hematocrit 33.2. No left shift. Electrolytes and renal function within normal limits 03/11/23 14:03 03/11/23 14:03 Labs: Lab Results 03/11/23 03/11/23 03/11/23 Range/Units 14: 14:03 14:03 WBC 3.9 L (4.8-10.8) X10*3/uL RBC 3.90 L (4.20-5.50) X10*6/uL Hgb 11.2 L (12.0-16.0) g/dl Hct 33.2 L (37.0-47.0) % MCV 85.1 (80.0-98.0) fL MCH 28.7 (27.0-33.0) pg MCHC 33.7 (31.0-35.0) g/dl RDW 13.8 (11.0-16.0) % Plt Count 235 (160-400) X10*3/uL MPV 10.6 (9.4-12.3) fL Immature Gran % (Auto) 0.3 (0.0-0.4) % Neut % (Auto) 43.9 L (45-73) % Lymph % (Auto) 43.1 H (20-40) % [place] % (Auto) 10.7 (2-11) % Eos % (Auto) 1.5 (0-4) % Baso % (Auto) 0.5 (0-2) % Lymph # (Auto) 1.7 (1.2-4.9) X10*3/uL [place] # (Auto) 0.4 (0.1-1.2) X10*3/uL Eos # (Auto) 0.1 (0.0-0.4) X10*3/uL Baso # (Auto) 0.0 (0.0-0.2) X10*3/uL Abs Immat Gran (auto) 0.01 (0.00-0.03) X10*3/uL Absolute Neuts (auto) 1.7 L (2.0-8.3) x10*3/uL Absolute Nucleated RBC 0.000 (0.0-0.012) X10*3/uL Nucleated RBC % (auto) 0.0 (0.0-0.2) /100WBC Sodium 140 (135-145) mmol/L Potassium 4.0 (3.3-5.1) mmol/L Chloride 110 H (96-108) mmol/L Carbon Dioxide 22 (22-29) mmol/L Anion Gap 12 (12-20) BUN 9 (9-16) mg/dL Creatinine 0.75 (0.5-1.4) mg/dL Estim Creat Clear Calc 111.3 Estimated GFR > 60 Random Glucose 91 (60-115) mg/dL Calcium 9.1 (8.4-10.2) mg/dL Beta HCG, Quant < 2 mIU/mL Urine Color Urine Appearance Urine pH (5.0-9.0) Ur Specific [place] (1.005-1.025) Urine Protein (Neg-Trace) mg/dL Urine Glucose (UA) (Negative) mg/dL Urine Ketones (Negative) mg/dL Urine Blood (Negative) Urine Nitrite (Negative) Ur Leukocyte Esterase (Negative) Urine Test (NEGATIVE) 03/11/23 03/11/23 Range/Units 16:46 16:46 WBC (4.8-10.8) X10*3/uL RBC (4.20-5.50) X10*6/uL Hgb (12.0-16.0) g/dl Hct (37.0-47.0) % MCV (80.0-98.0) fL MCH (27.0-33.0) pg MCHC (31.0-35.0) g/dl RDW (11.0-16.0) % Plt Count (160-400) X10*3/uL MPV (9.4-12.3) fL Immature Gran % (Auto) (0.0-0.4) % Neut % (Auto) (45-73) % Lymph % (Auto) (20-40) % [place] % (Auto) (2-11) % Eos % (Auto) (0-4) % Baso % (Auto) (0-2) % Lymph # (Auto) (1.2-4.9) X10*3/uL [place] # (Auto) (0.1-1.2) X10*3/uL Eos # (Auto) (0.0-0.4) X10*3/uL Baso # (Auto) (0.0-0.2) X10*3/uL Abs Immat Gran (auto) (0.00-0.03) X10*3/uL Absolute Neuts (auto) (2.0-8.3) x10*3/uL Absolute Nucleated RBC (0.0-0.012) X10*3/uL Nucleated RBC % (auto) (0.0-0.2) /100WBC Sodium (135-145) mmol/L Potassium (3.3-5.1) mmol/L Chloride (96-108) mmol/L Carbon Dioxide (22-29) mmol/L Anion Gap (12-20) BUN (9-16) mg/dL Creatinine (0.5-1.4) mg/dL Estim Creat Clear Calc Estimated GFR Random Glucose (60-115) mg/dL Calcium (8.4-10.2) mg/dL Beta HCG, Quant mIU/mL Urine Color Yellow Urine Appearance Clear Urine pH 5.5 (5.0-9.0) Ur Specific [place] >= 1.030 H (1.005-1.025) Urine Protein Negative (Neg-Trace) mg/dL Urine Glucose (UA) Negative (Negative) mg/dL Urine Ketones Trace (Negative) mg/dL Urine Blood Negative (Negative) Urine Nitrite Negative (Negative) Ur Leukocyte Esterase Negative (Negative) Urine Test NEGATIVE (NEGATIVE) Discharge Plan Discharge Clinical Impression: Abdominal pain Patient Disposition: Home, Self-Care Instructions: Abdominal Pain (ED) Additional Instructions: Your workup in the emergency department today was reassuring. Your blood test for was also negative as was the urine test You do not have a UTI Follow-up with your primary doctor and your OBGYN Prescriptions: No Action amoxicillin-pot clavulanate 875-125 mg tablet 1 tab PO BID 10 Days Qty: 20 0RF acetaminophen [Tylenol Extra Strength] 500 mg tablet 1,000 mg PO QID PRN (Reason: fever or pain) Qty: 14 0RF cyclobenzaprine 10 mg tablet 10 mg PO Q8H PRN (Reason: Muscle spasm) Qty: 14 0RF lidocaine [Lidoderm] 5 % adhesive patch,medicated 1 patch topical DAILY Qty: 15 0RF Rx Instructions: leave on most painful area for up to 12 hrs. May be substituted amoxicillin 500 mg tablet 500 mg PO BID Qty: 20 0RF amoxicillin 500 mg tablet 500 mg PO BID 10 Days Qty: 20 0RF acetaminophen 500 mg capsule 1,000 mg PO TID PRN (Reason: fever or pain) Qty: 30 0RF oxycodone 5 mg tablet 5 mg PO Q8H PRN (Reason: pain) Qty: 8 0RF Rx Instructions: Partial Fill upon patient request. amoxicillin-pot clavulanate 875-125 mg tablet 1 tab PO Q12H Qty: 20 0RF fluticasone propionate [Flonase Allergy Relief] 50 mcg/actuation spray,suspension 1 spray intranasal Q12H Qty: 16 0RF Rx Instructions: administer into each nostril azithromycin 250 mg tablet 250 mg PO DAILY 4 Days Qty: 4 0RF Rx Instructions: start on day 2 of therapy omeprazole 40 mg capsule,delayed release(DR/EC) 40 mg PO DAILY Qty: 20 0RF acetaminophen [Tylenol] 325 mg tablet 650 mg PO Q6H PRN (Reason: pain) Qty: 30 0RF ondansetron 4 mg tablet,disintegrating 4 mg PO Q6-8H PRN (Reason: nausea and vomiting) Qty: 7 0RF alum-mag hydroxide-simeth [Maalox Advanced] 200-200-20 mg/5 mL suspension 5 ml PO 5XD PRN (Reason: dyspepsia) Qty: 355 0RF Rx Instructions: administer between meals and at bedtime cimetidine 800 mg tablet 800 mg PO BID Qty: 30 0RF Rx Instructions: administer with meals promethazine [Promethegan] 25 mg suppository 25 mg MA Q6H PRN (Reason: nausea and vomiting) Qty: 20 0RF oxycodone 5 mg tablet 5 mg PO Q6H PRN (Reason: severe pain (scale score 7-10)) Qty: 12 0RF Rx Instructions: Partial Fill upon patient request.
[2023-03-11 13:29] VITALS: BP 134/70; PULSE 75; RESP 18; TEMP 36.7; O2SAT 100; BMI 27.8
[2023-03-11 14:09] LABS: MANUAL DIFF FLAG NO
[2023-03-11 14:12] LABS: Basophils Percent Auto 0.5 % (0-2); Eosinophils Absolute Auto 0.1 X10*3/uL (0.0-0.4); Eosinophils Percent Auto 1.5 % (0-4); Hematocrit 33.2 % (37.0-47.0); Hemoglobin 11.2 g/dl (12.0-16.0); Imm Gran Abs Auto 0.01 X10*3/uL (0.00-0.03); Imm Gran Pct Auto 0.3 % (0.0-0.4); Lymphocytes Absolute Auto 1.7 X10*3/uL (1.2-4.9); Lymphocytes Percent Auto 43.1 % (20-40); Mean Corpuscular HGB Conc 33.7 g/dl (31.0-35.0); Mean Corpuscular Hemoglobin 28.7 pg (27.0-33.0); Mean Corpuscular Volume 85.1 fL (80.0-98.0); Mean Platelet Volume 10.6 fL (9.4-12.3); Monocytes Absolute Auto 0.4 X10*3/uL (0.1-1.2); Monocytes Percent Auto 10.7 % (2-11); Neutrophils Absolute Auto 1.7 x10*3/uL (2.0-8.3); Neutrophils Percent Auto 43.9 % (45-73); Platelet Count 235 X10*3/uL (160-400); Red Cell Distribution Width 13.8 % (11.0-16.0); White Blood Count 3.9 X10*3/uL (4.8-10.8)
[2023-03-11 14:36] LABS: Anion Gap 12 (12-20); Blood Urea Nitrogen 9 mg/dL (9-16); Calcium 9.1 mg/dL (8.4-10.2); Carbon Dioxide 22 mmol/L (22-29); Chloride 110 mmol/L (96-108); Creatinine Clr Calc Pharmacy 111.3; Estimated Glomerular Filt Rate > 60; Glucose Random 91 mg/dL (60-115); Sodium 140 mmol/L (135-145)
[2023-03-11 15:04] LABS: HCG Quantitative < 2 mIU/mL
--- NOTE | 2023-03-11 16:49 | MHC.EDTECH ---
Urine collected and sent to lab
[2023-03-11 16:51] LABS: UPreg QC Valid YES; Urine Pregnancy NEGATIVE (NEGATIVE)
[2023-03-11 16:52] LABS: Appearance Urine Clear; Color Urine Yellow; Glucose Urine UA Negative (Negative); Leukocyte Esterase Urine Negative (Negative); Nitrite Urine Negative (Negative); PH 5.5 (5.0-9.0); Specific Gravity - Urine >= 1.030 (1.005-1.025); Urine Blood Negative (Negative); Urine Ketones Trace mg/dL (Negative); Urine Protein Negative (Neg-Trace)
== END 2023-03-11 17:09 | disposition home or self-care (01) ==
PROVIDERS: Physician Assistant; Emergency Provider Emergency Medicine
DX: R10.30 Lower abdominal pain, unspecified (principal)
CPT/HCPCS: 36415; 80048; 81003; 81025; 84702; 85025; 99282; 99283

== ENCOUNTER 2023-08-09 04:09 | Emergency (ER) | payer MEDICAID, SELFPAY ==
[2023-08-09 04:11] VITALS: BP 122/58; PULSE 98; RESP 18; TEMP 36.1; O2SAT 98; BMI 35.4
[2023-08-09 04:53] VITALS: BP 113/59; PULSE 93; RESP 16; TEMP 36.3; O2SAT 98
--- NOTE | 2023-08-09 05:20 | ED_ITS ---
HPI - Headache General Chief Complaint: Headache Stated Complaint: headache, nausea Time Seen by Provider: 08/09/23 05:13 Source: patient Mode of arrival: ambulatory Limitations: no limitations History of Present Illness HPI Narrative: Patient comes to the emergency room complaining of 2 days of headache. Patient states that she has been taking Tylenol without relief. Patient is currently a A1 at 22 weeks of gestational age, has care. Patient denies any abdominal contractions, no vaginal bleeding or discharge. Patient states that she has a headache along with right-sided neck pain, no stiffness. No fever or chills. No UTI symptoms. Patient states that she feels very heavy, weak, more than usual, known to have anemia. Related Data Previous Rx's Medication Instructions Recorded acetaminophen 500 mg tablet 1,000 mg (2 x 500 mg) PO QID PRN 10/27/21 (Tylenol Extra Strength) fever or pain #14 tabs amoxicillin 875 mg-potassium 1 tab PO BID Pharyngitis 10 days 10/27/21 clavulanate 125 mg tablet #20 tabs cyclobenzaprine 10 mg tablet 10 mg PO Q8H PRN Muscle spasm #14 10/27/21 tabs lidocaine 5 % topical patch 1 patch topical DAILY pain #15 ea 10/27/21 (Lidoderm) amoxicillin 500 mg tablet 500 mg PO BID #20 tabs 04/17/22 oxycodone 5 mg tablet 5 mg PO Q8H PRN pain #8 tabs 05/31/22 amoxicillin 875 mg-potassium 1 tab PO Q12H #20 tabs 08/01/22 clavulanate 125 mg tablet fluticasone propionate 50 1 spray intranasal Q12H #16 grams 08/01/22 mcg/actuation nasal spray,suspension (Flonase Allergy Relief) azithromycin 250 mg tablet 250 mg PO DAILY 4 days #4 tabs 08/05/22 acetaminophen 500 mg capsule 1,000 mg (2 x 500 mg) PO TID PRN 10/12/22 fever or pain #30 caps amoxicillin 500 mg tablet 500 mg PO BID 10 days #20 tabs 10/12/22 acetaminophen 325 mg tablet 650 mg (2 x 325 mg) PO Q6H PRN 11/18/22 (Tylenol) pain #30 tabs omeprazole 40 mg capsule,delayed 40 mg PO DAILY #20 caps 11/18/22 release ondansetron 4 mg disintegrating 4 mg PO Q6-8H PRN nausea and 11/22/22 tablet vomiting #7 tabs aluminum-mag hydroxide-simethicone 5 ml PO 5XD PRN dyspepsia #355 mL 11/30/22 200 mg-200 mg-20 mg/5 mL oral susp (Maalox Advanced) cimetidine 800 mg tablet 800 mg PO BID #30 tabs 12/01/22 promethazine 25 mg rectal 25 mg CO Q6H PRN nausea and 12/01/22 suppository (Promethegan) vomiting #20 ea oxycodone 5 mg tablet 5 mg PO Q6H PRN severe pain (scale 12/23/22 score 7-10) #12 tabs Allergies Allergy/AdvReac Type Severity Reaction Status Date / Time aspirin [ASA] Allergy Swelling Verified 10/12/22 15:49 caffeine Allergy Swelling Verified 10/12/22 15:49 morphine Allergy Palpitation Verified 10/12/22 15:49 s Review of Systems 2 Review of Systems: Constitutional : No Weight loss, No Fever, No Chills, No Night Sweats, complaining of fatigue ENT/Mouth : No Hearing loss, No Ear Pain, No Nasal Congestion, No Sinus Pain, No Hoarseness, No sore throat, No Rhinorrhea, No Swallowing Difficulty Eyes: No Eye Pain, No Swelling, No Redness, No Foreign Body, No Discharge, No Vision Changes Cardiovascular : No Chest Pain, No SOB, No Dyspnea on Exertion, No Orthopnea, No Edema, No Palpitations Respiratory : No Cough, No Sputum, No Wheezing, No Smoke Exposure, No Dyspnea Gastrointestinal : No Nausea, No Vomiting, No Diarrhea, No Constipation, No abdominal Pain, No Hematochezia, No Melena Genitourinary : no irregular bleeding, No Dysuria, No Urinary Frequency, No Hematuria, No Urinary Incontinence, No Urgency, No Flank Pain, No Urinary Flow Changes, No Hesitancy Musculoskeletal : No joint pain, No Myalgias, No Joint Swelling Skin : No Skin Lesions, No rash Neuro : No Weakness, No Numbness, No Paresthesias, No Loss of Consciousness, No Dizziness, complaining of head Psych : No Anxiety/Panic, No Depression, No SI/HI/AH/VH, No Social Issues, Heme/Lymph: No Bruising, No Bleeding,No Lymphadenopathy Endocrine : No Polyuria, No Polydipsia, No Temperature Intolerance [facility] Past Medical History Onset Date is defined in the Problem List Problems that require an onset date and time if occurred within 24 hrs of arrival to the ED Aortic Dissection and Rupture; Neurologic impairment; Cardiopulmonary Arrest; Endotracheal Intubation; Insertion or Replacement of Mechanical Circulatory Assist Device Medical History (Updated 08/09/23 @ 06:14 by Sobeida Fair MD) Migraine Anemia Social History Social History Alcohol intake: never Smoked in Last 30 Days: No Use of substances other than those prescribed or required for medical reasons: No Advance Directives: No Advance Directives Information Provided: Yes Patient : Yes Physical Exam 2 Vital Signs: Vital Signs: Last Vital Signs Temp 97.3 F 08/09/23 04:53 Pulse 93 08/09/23 04:53 Resp 16 08/09/23 04:53 BP 113/59 L 08/09/23 04:53 Pulse Ox 98 08/09/23 04:53 O2 Del Method Room Air 08/09/23 04:53 BMI result Body Mass Index 35.4 Const: Other: Appearance: Alert. Oriented X3. No acute distress. Eyes: Pupils equal, round and reactive to light. ENT: Pharynx normal. Neck: Normal inspection. Neck supple. No lymph nodes noted. No crepitus, normal range of motion, no neck stiffness CVS: Normal heart rate and rhythm. Pulses normal. Normal S1 and S2 Respiratory: No respiratory distress. Breath sounds normal. No Wheezing. No rales Abdomen: Soft and nontender. No rigidity. No distention. Gravid uterus. Bedside ultrasound shows good movement, heart rate in the 150s, good amount of amniotic fluid Skin: Skin warm and dry. Normal skin color. Normal skin turgor. Extremities: No lower extremity edema. No Lacerations. No Rash Neuro: Oriented X 3. No motor deficit. No sensory deficit. Moving all extremities. No slurred speech. CN 2 through 12 grossly intact Psych: calm, cooperative, normal affect Course Course Course Narrative: -patient receiving IV fluids, metoclopramide IV. Patient allergic to morphine, patient receiving 0.25 mg of Dilaudid. Ketorolac contraindicated in Medications Administered Generic Name Dose Route Start Last Admin Trade Name Freq PRN Reason Stop Dose Admin Sodium Chloride 1,000 mls @ 999 mls/hr 08/09/23 05:18 08/09/23 05:46 Ns IVCONT 08/09/23 06:18 999 mls/hr .Q1H1M ONE Administration Discontinued Medications Generic Name Dose Route Start Last Admin Trade Name Armando PRN Reason Stop Dose Admin Hydromorphone HCl 0.25 mg 08/09/23 05:18 08/09/23 05:52 Hydromorphone Hcl 0.5 Mg/0.5 Ml Syringe IVPUSH 08/09/23 05:19 Not Given ONCE ONE Protocol Metoclopramide HCl 10 mg 08/09/23 05:18 08/09/23 05:52 Metoclopramide Hcl 10 Mg/2 Ml Vial IVPUSH 08/09/23 05:19 10 mg ONCE ONE Administration Medical Decision Making Medical Decision Making [facility] Narrative: -my interpretation of labs: Patient's hemoglobin 9.4, patient known to be chronically anemic. Patient takes iron at home and vitamins. Chemistry unremarkable, LFTs normal, lipase normal. Urinalysis analysis negative, serology negative for COVID and influenza. -patient given IV fluids, Reglanand PO tramadol. Patient feels much better. -patient has care, will follow-up with her PCP and OB Gyne Differential Diagnosis Differential Diagnoses: The differential diagnosis associated with the presentation includes (Tension headache, dehydration, migraine) Lab Data [facility] Lab Attestation statement: I reviewed the patient's lab results. 08/09/23 05:29 08/09/23 05:29 Labs: Lab Results 08/09/23 08/09/23 Range/Units 05:29 05:48 WBC 5.5 (4.8-10.8) X10*3/uL RBC 3.29 L (4.20-5.50) X10*6/uL Hgb 9.4 L (12.0-16.0) g/dl Hct 27.5 L (37.0-47.0) % MCV 83.6 (80.0-98.0) fL MCH 28.6 (27.0-33.0) pg MCHC 34.2 (31.0-35.0) g/dl RDW 13.5 (11.0-16.0) % Plt Count 178 (160-400) X10*3/uL MPV 10.1 (9.4-12.3) fL Immature Gran % (Auto) 1.3 H (0.0-0.4) % Neut % (Auto) 66.8 (45-73) % Lymph % (Auto) 21.7 (20-40) % [place] % (Auto) 9.6 (2-11) % Eos % (Auto) 0.4 (0-4) % Baso % (Auto) 0.2 (0-2) % Lymph # (Auto) 1.2 (1.2-4.9) X10*3/uL [place] # (Auto) 0.5 (0.1-1.2) X10*3/uL Eos # (Auto) 0.0 (0.0-0.4) X10*3/uL Baso # (Auto) 0.0 (0.0-0.2) X10*3/uL Abs Immat Gran (auto) 0.07 H (0.00-0.03) X10*3/uL Absolute Neuts (auto) 3.7 (2.0-8.3) x10*3/uL Absolute Nucleated RBC 0.000 (0.0-0.012) X10*3/uL Nucleated RBC % (auto) 0.0 (0.0-0.2) /100WBC Sodium 135 (135-145) mmol/L Potassium 3.7 (3.3-5.1) mmol/L Chloride 109 H (96-108) mmol/L Carbon Dioxide 19 L (22-29) mmol/L Anion Gap 11 L (12-20) BUN 8 L (9-16) mg/dL Creatinine 0.63 (0.5-1.4) mg/dL Estim Creat Clear Calc 149.7 Estimated GFR > 60 Random Glucose 96 (60-115) mg/dL Calcium 8.8 (8.4-10.2) mg/dL Total Bilirubin 0.3 (0.0-1.0) mg/dL Direct Bilirubin 0.1 (0.0-0.5) mg/dL AST 12 (5-31) U/L ALT 12 (0-31) U/L Alkaline Phosphatase 70 (39-117) U/L Total Protein 6.8 (6.5-8.0) g/dL Albumin 3.5 (3.5-5.0) g/dL Lipase 22 (8-78) U/L Urine Color Yellow Urine Appearance Clear Urine pH 7.0 (5.0-9.0) Ur Specific [place] <= 1.005 (1.005-1.025) Urine Protein Negative (Neg-Trace) mg/dL Urine Glucose (UA) Negative (Negative) mg/dL Urine Ketones Negative (Negative) mg/dL Urine Blood Negative (Negative) Urine Nitrite Negative (Negative) Ur Leukocyte Esterase Negative (Negative) COVID-19 (ANURAG) Negative (Negative) COVID-19 Clin Com See Note Influenza Type A (JAKI) Negative (Negative) Influenza Type B (JAKI) Negative (Negative) Influenza A & B Note See Note Discharge Plan Discharge Clinical Impression: Headache Patient Disposition: Home, Self-Care Instructions: Acute Headache (ED) Additional Instructions: Please follow-up with your primary care physician tomorrow. Please discuss with your primary care physician a possible referral to Hematology. If you have any worsening or new symptoms, please return to the emergency room or call 911 Prescriptions: No Action amoxicillin-pot clavulanate 875-125 mg tablet 1 tab PO BID 10 Days Qty: 20 0RF acetaminophen [Tylenol Extra Strength] 500 mg tablet 1,000 mg PO QID PRN (Reason: fever or pain) Qty: 14 0RF cyclobenzaprine 10 mg tablet 10 mg PO Q8H PRN (Reason: Muscle spasm) Qty: 14 0RF lidocaine [Lidoderm] 5 % adhesive patch,medicated 1 patch topical DAILY Qty: 15 0RF Rx Instructions: leave on most painful area for up to 12 hrs. May be substituted amoxicillin 500 mg tablet 500 mg PO BID Qty: 20 0RF amoxicillin 500 mg tablet 500 mg PO BID 10 Days Qty: 20 0RF acetaminophen 500 mg capsule 1,000 mg PO TID PRN (Reason: fever or pain) Qty: 30 0RF oxycodone 5 mg tablet 5 mg PO Q8H PRN (Reason: pain) Qty: 8 0RF Rx Instructions: Partial Fill upon patient request. amoxicillin-pot clavulanate 875-125 mg tablet 1 tab PO Q12H Qty: 20 0RF fluticasone propionate [Flonase Allergy Relief] 50 mcg/actuation spray,suspension 1 spray intranasal Q12H Qty: 16 0RF Rx Instructions: administer into each nostril azithromycin 250 mg tablet 250 mg PO DAILY 4 Days Qty: 4 0RF Rx Instructions: start on day 2 of therapy omeprazole 40 mg capsule,delayed release(DR/EC) 40 mg PO DAILY Qty: 20 0RF acetaminophen [Tylenol] 325 mg tablet 650 mg PO Q6H PRN (Reason: pain) Qty: 30 0RF ondansetron 4 mg tablet,disintegrating 4 mg PO Q6-8H PRN (Reason: nausea and vomiting) Qty: 7 0RF alum-mag hydroxide-simeth [Maalox Advanced] 200-200-20 mg/5 mL suspension 5 ml PO 5XD PRN (Reason: dyspepsia) Qty: 355 0RF Rx Instructions: administer between meals and at bedtime cimetidine 800 mg tablet 800 mg PO BID Qty: 30 0RF Rx Instructions: administer with meals promethazine [Promethegan] 25 mg suppository 25 mg CO Q6H PRN (Reason: nausea and vomiting) Qty: 20 0RF oxycodone 5 mg tablet 5 mg PO Q6H PRN (Reason: severe pain (scale score 7-10)) Qty: 12 0RF Rx Instructions: Partial Fill upon patient request.
[2023-08-09 05:35] LABS: MANUAL DIFF FLAG NO
[2023-08-09 05:36] LABS: Basophils Percent Auto 0.2 % (0-2); Eosinophils Percent Auto 0.4 % (0-4); Hematocrit 27.5 % (37.0-47.0); Hemoglobin 9.4 g/dl (12.0-16.0); Imm Gran Abs Auto 0.07 X10*3/uL (0.00-0.03); Imm Gran Pct Auto 1.3 % (0.0-0.4); Lymphocytes Absolute Auto 1.2 X10*3/uL (1.2-4.9); Lymphocytes Percent Auto 21.7 % (20-40); Mean Corpuscular HGB Conc 34.2 g/dl (31.0-35.0); Mean Corpuscular Hemoglobin 28.6 pg (27.0-33.0); Mean Corpuscular Volume 83.6 fL (80.0-98.0); Mean Platelet Volume 10.1 fL (9.4-12.3); Monocytes Absolute Auto 0.5 X10*3/uL (0.1-1.2); Monocytes Percent Auto 9.6 % (2-11); Neutrophils Absolute Auto 3.7 x10*3/uL (2.0-8.3); Neutrophils Percent Auto 66.8 % (45-73); Platelet Count 178 X10*3/uL (160-400); Red Blood Count 3.29 X10*6/uL (4.20-5.50); Red Cell Distribution Width 13.5 % (11.0-16.0); White Blood Count 5.5 X10*3/uL (4.8-10.8)
[2023-08-09] MEDS: 0.9 % Sodium Chloride 1,000 ML 999 ML IVCONT (05:46)
[2023-08-09 05:48] LABS: COVID-19 Test Negative (Negative); IDNOW Serial# 08D9AD1C
[2023-08-09] MEDS: Metoclopramide HCl 10 MG/2 ML VIAL IVPUSH (05:52)
[2023-08-09 05:53] LABS: IDNOW Serial# 152EDE1D; Influenza A Negative (Negative); Influenza B2 Negative (Negative)
[2023-08-09 06:00] LABS: Alanine Aminotransferase 12 U/L (0-31); Albumin Level 3.5 g/dL (3.5-5.0); Alkaline Phosphatase 70 U/L (39-117); Anion Gap 11 (12-20); Aspartate Amino Transferase 12 U/L (5-31); Bilirubin Direct 0.1 mg/dL (0.0-0.5); Bilirubin Total 0.3 mg/dL (0.0-1.0); Blood Urea Nitrogen 8 mg/dL (9-16); Calcium 8.8 mg/dL (8.4-10.2); Carbon Dioxide 19 mmol/L (22-29); Chloride 109 mmol/L (96-108); Creatinine Clr Calc Pharmacy 149.7; Estimated Glomerular Filt Rate > 60; Glucose Random 96 mg/dL (60-115); Lipase 22 U/L (8-78); Potassium 3.7 mmol/L (3.3-5.1); Sodium 135 mmol/L (135-145); Total Protein 6.8 g/dL (6.5-8.0)
[2023-08-09 06:01] LABS: Appearance Urine Clear; Color Urine Yellow; Glucose Urine UA Negative (Negative); Leukocyte Esterase Urine Negative (Negative); Nitrite Urine Negative (Negative); Specific Gravity - Urine <= 1.005 (1.005-1.025); Urine Blood Negative (Negative); Urine Ketones Negative (Negative); Urine Protein Negative (Neg-Trace)
[2023-08-09 06:19] LABS: HCG Quantitative 24061 mIU/mL
[2023-08-09] MEDS: traMADoL HCL 50 MG TABLET PO (06:33)
[2023-08-09 06:34] VITALS: BP 117/53; PULSE 96; RESP 14; TEMP 36.8; O2SAT 97
== END 2023-08-09 06:40 | disposition home or self-care (01) ==
PROVIDERS: Emergency Provider Emergency Medicine
DX: R51.9 Headache, unspecified (principal); R11.2 Nausea with vomiting, unspecified; Z11.52 Encounter for screening for COVID-19; Z20.828 Contact with and (suspected) exposure to other viral communicable diseases; Z79.899 Other long term (current) drug therapy
CPT/HCPCS: 80048; 80076; 81003; 83690; 84702; 85025; 87502; 87635; 96361; 96374; 96375; 99284; 99285; J2765

== ENCOUNTER 2023-11-15 04:18 | Emergency (ER) | payer MEDICAID, SELFPAY ==
[2023-11-15 04:23] VITALS: BP 116/57; PULSE 125; RESP 20; TEMP 38.8; O2SAT 95; BMI 34.9
[2023-11-15] MEDS: Acetaminophen 325 MG TABLET 650 MG PO (04:41)
[2023-11-15 04:46] LABS: MANUAL DIFF FLAG NO
[2023-11-15 04:47] LABS: Basophils Percent Auto 0.4 % (0-2); Eosinophils Absolute Auto 0.1 X10*3/uL (0.0-0.4); Eosinophils Percent Auto 0.8 % (0-4); Hematocrit 33.7 % (37.0-47.0); Imm Gran Abs Auto 0.02 X10*3/uL (0.00-0.03); Imm Gran Pct Auto 0.2 % (0.0-0.4); Lymphocytes Absolute Auto 1.5 X10*3/uL (1.2-4.9); Lymphocytes Percent Auto 18.2 % (20-40); Mean Corpuscular HGB Conc 32.6 g/dl (31.0-35.0); Mean Corpuscular Hemoglobin 25.2 pg (27.0-33.0); Mean Corpuscular Volume 77.3 fL (80.0-98.0); Mean Platelet Volume 9.7 fL (9.4-12.3); Monocytes Absolute Auto 0.7 X10*3/uL (0.1-1.2); Monocytes Percent Auto 7.9 % (2-11); Neutrophils Absolute Auto 6.1 x10*3/uL (2.0-8.3); Neutrophils Percent Auto 72.5 % (45-73); Platelet Count 280 X10*3/uL (160-400); Red Blood Count 4.36 X10*6/uL (4.20-5.50); Red Cell Distribution Width 17.1 % (11.0-16.0); White Blood Count 8.4 X10*3/uL (4.8-10.8)
[2023-11-15 05:01] LABS: Alanine Aminotransferase 21 U/L (0-31); Albumin Level 3.9 g/dL (3.5-5.0); Alkaline Phosphatase 91 U/L (39-117); Anion Gap 13 (12-20); Aspartate Amino Transferase 17 U/L (5-31); Bilirubin Total 0.6 mg/dL (0.0-1.0); Blood Urea Nitrogen 9 mg/dL (9-16); Carbon Dioxide 23 mmol/L (22-29); Chloride 107 mmol/L (96-108); Creatinine Clr Calc Pharmacy 120.5; Estimated Glomerular Filt Rate > 60; Glucose Random 101 mg/dL (60-115); Potassium 3.8 mmol/L (3.3-5.1); Sodium 139 mmol/L (135-145); Total Protein 7.5 g/dL (6.5-8.0)
[2023-11-15 05:23] LABS: Influenza A PCR NEGATIVE (Negative); Influenza B PCR NEGATIVE (Negative); Resp Syncy Virus RNA Qual PCR NEGATIVE (Negative); SARS COV2 PCR INHOUSE NEGATIVE (Negative)
[2023-11-15 05:44] VITALS: BP 116/60; PULSE 105; RESP 19; TEMP 37.7; O2SAT 96
--- NOTE | 2023-11-15 06:13 | ED.GENADULT ---
HPI - General Adult General Chief complaint: General Medical Stated complaint: weak feels like she has fever Time Seen by Provider: 11/15/23 04:52 Source: patient Mode of arrival: ambulatory Limitations: language barrier History of Present Illness HPI narrative: History done with an conference interpreter. Patient with fever and chills and headache. Denies chest pain, cough, dysuria, N, V, D. Patient is 8 days post Onset (ago): day(s) Related Data Previous Rx's ?Medication ?Instructions ?Recorded acetaminophen 500 mg tablet 1,000 mg (2 x 500 mg) PO QID PRN 10/27/21 (Tylenol Extra Strength) fever or pain #14 tabs amoxicillin 875 mg-potassium 1 tab PO BID Pharyngitis 10 days 10/27/21 clavulanate 125 mg tablet #20 tabs cyclobenzaprine 10 mg tablet 10 mg PO Q8H PRN Muscle spasm #14 10/27/21 tabs lidocaine 5 % topical patch 1 patch topical DAILY pain #15 ea 10/27/21 (Lidoderm) amoxicillin 500 mg tablet 500 mg PO BID #20 tabs 04/17/22 oxycodone 5 mg tablet 5 mg PO Q8H PRN pain #8 tabs 05/31/22 amoxicillin 875 mg-potassium 1 tab PO Q12H #20 tabs 08/01/22 clavulanate 125 mg tablet fluticasone propionate 50 1 spray intranasal Q12H #16 grams 08/01/22 mcg/actuation nasal spray,suspension (Flonase Allergy Relief) azithromycin 250 mg tablet 250 mg PO DAILY 4 days #4 tabs 08/05/22 acetaminophen 500 mg capsule 1,000 mg (2 x 500 mg) PO TID PRN 10/12/22 fever or pain #30 caps amoxicillin 500 mg tablet 500 mg PO BID 10 days #20 tabs 10/12/22 acetaminophen 325 mg tablet 650 mg (2 x 325 mg) PO Q6H PRN 11/18/22 (Tylenol) pain #30 tabs omeprazole 40 mg capsule,delayed 40 mg PO DAILY #20 caps 11/18/22 release ondansetron 4 mg disintegrating 4 mg PO Q6-8H PRN nausea and 11/22/22 tablet vomiting #7 tabs aluminum-mag hydroxide-simethicone 5 ml PO 5XD PRN dyspepsia #355 mL 11/30/22 200 mg-200 mg-20 mg/5 mL oral susp (Maalox Advanced) cimetidine 800 mg tablet 800 mg PO BID #30 tabs 12/01/22 promethazine 25 mg rectal 25 mg MA Q6H PRN nausea and 12/01/22 suppository (Promethegan) vomiting #20 ea oxycodone 5 mg tablet 5 mg PO Q6H PRN severe pain (scale 12/23/22 score 7-10) #12 tabs nitrofurantoin 100 mg PO Q12H 7 days #14 caps 11/15/23 monohydrate/macrocrystals 100 mg capsule (Macrobid) Allergies Allergy/AdvReac Type Severity Reaction Status Date / Time aspirin [ASA] Allergy Swelling Verified 11/15/23 04:27 caffeine Allergy Swelling Verified 11/15/23 04:27 morphine Allergy Palpitation Verified 11/15/23 04:27 s Review of Systems Review of Systems: Yes all other systems are reviewed and are negative Neurologic: Denies Sensory deficit (Neuro) [facility] Past Medical History Medical History Migraine Anemia Social History Social History Alcohol intake: never Advance Directives: No Advance Directives Information Provided: Yes Physical Exam ED Vital Signs: Vital Signs - 24 hr 11/15/23 04:23 11/15/23 05:44 Temperature 101.8 F H 99.8 F Pulse Rate 125 H 105 H Respiratory Rate 20 19 Blood Pressure 116/57 L 116/60 Pulse Oximetry 95 96 Oxygen Delivery Method Room Air Room Air BMI result Body Mass Index 34.9 Const General: healthy appearing Nutritional Appearance: average body habitus Orientation/consciousness: oriented to person and patient oriented x3 Limitations: no limitations HENMT Head: Yes normal to inspection Ears: external ears normal General nose exam: Normal external nose present Mouth: Normal oral and palatal mucosa present and oropharynx normal Throat: Yes posterior oropharynx normal Eyes General: appearance normal, both eyes and all related structures Neck Neck: Yes normal visual inspection Chest Chest palpation & inspection: normal inspection of the chest Resp Auscultation: clear to auscultation bilaterally Cardio Jugular venous distension: no JVD Rate: regular rate Rhythm: regular rhythm Heart sounds: S1 normal heart sound present and S2 normal heart sound present GI Inspection: Yes normal to inspection Palpation (GI): Soft to palpation, nontender and No hepatosplenomegaly present Auscultation: normal bowel sounds General: Yes no CVA tenderness Back/Spine/Pelvis Back: no CVA tenderness Skin General skin exam: no rashes or lesions noted Neuro General: oriented to person and patient oriented x3 Cranial nerves: Yes CN's II-XII intact bilaterally Motor exam (neuro): 5/5 motor strength present throughout Sensory Exam: No Sensory deficit (Neuro) Extrem General: Yes normal to inspection Psych Appearance: grossly normal Course Reevaluation(s) Reevaluation #1: patient with UA that looks infected will place patient on macrobid Time: 07:17 Medications Administered Discontinued Medications Generic Name Dose Route Start Last Admin Trade Name Freq PRN Reason Stop Dose Admin Acetaminophen 650 mg 11/15/23 04:38 11/15/23 04:41 Acetaminophen 325 Mg Tablet PO 11/15/23 04:39 650 mg ONCE ONE Administration Medical Decision Making Differential Diagnosis Differential Diagnoses: The differential diagnosis associated with the presentation includes (flu, covid, rsv, UTI were all considered) Admission/Observation Consideration of admission/observation: Escalation of care including admission/observation considered (upon arrival patient was considered for admission) Lab Data 11/15/23 04:40 11/15/23 04:40 Labs: Lab Results 11/15/23 11/15/23 Range/Units 04:40 06:36 WBC 8.4 (4.8-10.8) X10*3/uL RBC 4.36 D (4.20-5.50) X10*6/uL Hgb 11.0 L (12.0-16.0) g/dl Hct 33.7 L D (37.0-47.0) % MCV 77.3 L (80.0-98.0) fL MCH 25.2 L (27.0-33.0) pg MCHC 32.6 (31.0-35.0) g/dl RDW 17.1 H (11.0-16.0) % Plt Count 280 D (160-400) X10*3/uL MPV 9.7 (9.4-12.3) fL Immature Gran % (Auto) 0.2 (0.0-0.4) % Neut % (Auto) 72.5 (45-73) % Lymph % (Auto) 18.2 L (20-40) % [place] % (Auto) 7.9 (2-11) % Eos % (Auto) 0.8 (0-4) % Baso % (Auto) 0.4 (0-2) % Lymph # (Auto) 1.5 (1.2-4.9) X10*3/uL [place] # (Auto) 0.7 (0.1-1.2) X10*3/uL Eos # (Auto) 0.1 (0.0-0.4) X10*3/uL Baso # (Auto) 0.0 (0.0-0.2) X10*3/uL Abs Immat Gran (auto) 0.02 (0.00-0.03) X10*3/uL Absolute Neuts (auto) 6.1 (2.0-8.3) x10*3/uL Absolute Nucleated RBC 0.000 (0.0-0.012) X10*3/uL Nucleated RBC % (auto) 0.0 (0.0-0.2) /100WBC Sodium 139 (135-145) mmol/L Potassium 3.8 (3.3-5.1) mmol/L Chloride 107 (96-108) mmol/L Carbon Dioxide 23 (22-29) mmol/L Anion Gap 13 (12-20) BUN 9 (9-16) mg/dL Creatinine 0.77 (0.5-1.4) mg/dL Estim Creat Clear Calc 120.5 Estimated GFR > 60 Random Glucose 101 (60-115) mg/dL Calcium 9.0 (8.4-10.2) mg/dL Total Bilirubin 0.6 (0.0-1.0) mg/dL AST 17 (5-31) U/L ALT 21 (0-31) U/L Alkaline Phosphatase 91 (39-117) U/L Total Protein 7.5 (6.5-8.0) g/dL Albumin 3.9 (3.5-5.0) g/dL Urine Color Yellow Urine Appearance Clear Urine pH 6.5 (5.0-9.0) Ur Specific [place] 1.010 (1.005-1.025) Urine Protein Negative (Neg-Trace) mg/dL Urine Glucose (UA) Negative (Negative) mg/dL Urine Ketones Negative (Negative) mg/dL Urine Blood Large (3+) H (Negative) Urine Nitrite Negative (Negative) Ur Leukocyte Esterase Small (1+) H (Negative) Urine RBC 11-20 H (0-2) /HPF Urine WBC 6-10 H (0-5) /HPF Ur Squamous Epith Cells 0-2 (0-2) /HPF Urine Bacteria None Seen (None Seen) Hyaline Casts 0-2 (0-2) /LPF Influenza Type A (PCR) NEGATIVE (Negative) Influenza Type B (PCR) NEGATIVE (Negative) RSV RNA Qual (PCR) NEGATIVE (Negative) SARS-CoV-2 RNA (RT-PCR) NEGATIVE (Negative) Tests considered The following testing was considered but not selected: CXR considered but no shortness of breath or cough Discharge Plan Discharge Clinical Impression: Fever, UTI (urinary tract infection) Patient Disposition: Home, Self-Care Instructions: Fever in Adults (ED), Urinary Tract Infection in (ED) Prescriptions: New nitrofurantoin monohyd/m-cryst [Macrobid] 100 mg capsule 100 mg PO Q12H 7 Days Qty: 14 0RF Rx Instructions: must administer with a meal/food No Action amoxicillin-pot clavulanate 875-125 mg tablet 1 tab PO BID 10 Days Qty: 20 0RF acetaminophen [Tylenol Extra Strength] 500 mg tablet 1,000 mg PO QID PRN (Reason: fever or pain) Qty: 14 0RF cyclobenzaprine 10 mg tablet 10 mg PO Q8H PRN (Reason: Muscle spasm) Qty: 14 0RF lidocaine [Lidoderm] 5 % adhesive patch,medicated 1 patch topical DAILY Qty: 15 0RF Rx Instructions: leave on most painful area for up to 12 hrs. May be substituted amoxicillin 500 mg tablet 500 mg PO BID Qty: 20 0RF amoxicillin 500 mg tablet 500 mg PO BID 10 Days Qty: 20 0RF acetaminophen 500 mg capsule 1,000 mg PO TID PRN (Reason: fever or pain) Qty: 30 0RF oxycodone 5 mg tablet 5 mg PO Q8H PRN (Reason: pain) Qty: 8 0RF Rx Instructions: Partial Fill upon patient request. amoxicillin-pot clavulanate 875-125 mg tablet 1 tab PO Q12H Qty: 20 0RF fluticasone propionate [Flonase Allergy Relief] 50 mcg/actuation spray,suspension 1 spray intranasal Q12H Qty: 16 0RF Rx Instructions: administer into each nostril azithromycin 250 mg tablet 250 mg PO DAILY 4 Days Qty: 4 0RF Rx Instructions: start on day 2 of therapy omeprazole 40 mg capsule,delayed release(DR/EC) 40 mg PO DAILY Qty: 20 0RF acetaminophen [Tylenol] 325 mg tablet 650 mg PO Q6H PRN (Reason: pain) Qty: 30 0RF ondansetron 4 mg tablet,disintegrating 4 mg PO Q6-8H PRN (Reason: nausea and vomiting) Qty: 7 0RF alum-mag hydroxide-simeth [Maalox Advanced] 200-200-20 mg/5 mL suspension 5 ml PO 5XD PRN (Reason: dyspepsia) Qty: 355 0RF Rx Instructions: administer between meals and at bedtime cimetidine 800 mg tablet 800 mg PO BID Qty: 30 0RF Rx Instructions: administer with meals promethazine [Promethegan] 25 mg suppository 25 mg MA Q6H PRN (Reason: nausea and vomiting) Qty: 20 0RF oxycodone 5 mg tablet 5 mg PO Q6H PRN (Reason: severe pain (scale score 7-10)) Qty: 12 0RF Rx Instructions: Partial Fill upon patient request. Referrals: Padmini Alicia MD [Primary Care Provider] - 1 week Print Language: Pakistani
[2023-11-15 06:57] LABS: Appearance Urine Clear; Color Urine Yellow; Glucose Urine UA Negative (Negative); Leukocyte Esterase Urine Small (1+) (Negative); Nitrite Urine Negative (Negative); PH 6.5 (5.0-9.0); UMIC TRIGGER UACC YES; Urine Blood Large (3+) (Negative); Urine Ketones Negative (Negative); Urine Protein Negative (Neg-Trace)
[2023-11-15 07:01] LABS: Bacteria Urine None Seen (None Seen); Hyaline Casts Urine 0-2 /LPF (0-2); Squamous Epithelial Cell Urine 0-2 /HPF (0-2); UACC Culture Trigger YES
[2023-11-15 07:37] VITALS: BP 121/71; PULSE 77; RESP 17; TEMP 36.6; O2SAT 98
[2023-11-15] MEDS: Nitrofurantoin Monohyd/M-Cryst 100 MG CAPSULE PO (07:38)
== END 2023-11-15 07:41 | disposition home or self-care (01) ==
PROVIDERS: Emergency Provider Emergency Medicine; PCP Internal Medicine
DX: O86.20 Urinary tract infection following delivery, unspecified (principal); N39.0 Urinary tract infection, site not specified
CPT/HCPCS: 0241U; 80053; 81001; 85025; 87086; 99283; 99284

== ENCOUNTER 2024-06-28 12:47 | Emergency (ER) | payer MEDICAID, SELFPAY ==
[2024-06-28 12:52] VITALS: BP 120/64; PULSE 94; RESP 16; TEMP 36.7; O2SAT 100; BMI 28.3
--- NOTE | 2024-06-28 12:52 | ED_ITS ---
HPI - General Adult General Chief complaint: Ear Problems Stated complaint: lt ear pain Time Seen by Provider: 06/28/24 15:20 Source: patient and grocery specialist (all interactions with this patient were facilitated with an [facility] finish rolls operator) Mode of arrival: ambulatory Limitations: language barrier (all interactions with this patient were facilitated with an [facility] finish rolls operator) History of Present Illness ED Provider: Vera Roth PA-C HPI narrative: Patient is a 23 year old assigned female at with a history of migraines and anemia presenting to the emergency department today with left ear pain, cough, and a sore throat. Patient states that she woke up this morning with left ear pain, a sore throat, and cough. Patient denies any dizziness, lightheadedness, abdominal pain, nausea, vomiting, fever, chills, blurry vision, double vision, loss of vision, chest pain, difficulty breathing, shortness of breath, back pain, night sweats, pain with urination, increased urinary frequency, increased urinary urgency, blood in her urine or stool, syncope or a near syncopal episode, recent trauma or falls, bowel incontinence, bladder incontinence, or any other complaints at this time. Relieving factors: none Exacerbating factors: none Associated symptoms: denies other symptoms Treatments prior to arrival: none Related Data Previous Rx's ?Medication ?Instructions ?Recorded acetaminophen 500 mg tablet 1,000 mg (2 x 500 mg) PO QID PRN 10/27/21 (Tylenol Extra Strength) fever or pain #14 tabs amoxicillin 875 mg-potassium 1 tab PO BID Pharyngitis 10 days 10/27/21 clavulanate 125 mg tablet #20 tabs cyclobenzaprine 10 mg tablet 10 mg PO Q8H PRN Muscle spasm #14 10/27/21 tabs lidocaine 5 % topical patch 1 patch topical DAILY pain #15 ea 10/27/21 (Lidoderm) amoxicillin 500 mg tablet 500 mg PO BID #20 tabs 04/17/22 oxycodone 5 mg tablet 5 mg PO Q8H PRN pain #8 tabs 05/31/22 amoxicillin 875 mg-potassium 1 tab PO Q12H #20 tabs 08/01/22 clavulanate 125 mg tablet fluticasone propionate 50 1 spray intranasal Q12H #16 grams 08/01/22 mcg/actuation nasal spray,suspension (Flonase Allergy Relief) azithromycin 250 mg tablet 250 mg PO DAILY 4 days #4 tabs 08/05/22 acetaminophen 500 mg capsule 1,000 mg (2 x 500 mg) PO TID PRN 10/12/22 fever or pain #30 caps amoxicillin 500 mg tablet 500 mg PO BID 10 days #20 tabs 10/12/22 acetaminophen 325 mg tablet 650 mg (2 x 325 mg) PO Q6H PRN 11/18/22 (Tylenol) pain #30 tabs omeprazole 40 mg capsule,delayed 40 mg PO DAILY #20 caps 11/18/22 release ondansetron 4 mg disintegrating 4 mg PO Q6-8H PRN nausea and 11/22/22 tablet vomiting #7 tabs aluminum-mag hydroxide-simethicone 5 ml PO 5XD PRN dyspepsia #355 mL 11/30/22 200 mg-200 mg-20 mg/5 mL oral susp (Maalox Advanced) cimetidine 800 mg tablet 800 mg PO BID #30 tabs 12/01/22 promethazine 25 mg rectal [address] Q6H PRN nausea and 12/01/22 suppository (Promethegan) vomiting #20 ea oxycodone 5 mg tablet 5 mg PO Q6H PRN severe pain (scale 12/23/22 score 7-10) #12 tabs nitrofurantoin 100 mg PO Q12H 7 days #14 caps 11/15/23 monohydrate/macrocrystals 100 mg capsule (Macrobid) penicillin V potassium 500 mg 500 mg PO BID 10 days #20 tabs 06/28/24 tablet Allergies Allergy/AdvReac Type Severity Reaction Status Date / Time aspirin [ASA] Allergy Swelling Verified 06/28/24 12:54 caffeine Allergy Swelling Verified 06/28/24 12:54 morphine Allergy Palpitation Verified 06/28/24 12:54 s Review of Systems Constitutional: Constitutional: Reports no additional constitutional complaints, Denies chills, Denies fever(s) and Denies night sweats Eyes: Eyes: Reports no additional eye complaints, Denies blurry vision, Denies change in vision, Denies diplopia, Denies eye discharge, Denies loss of vision and Denies eye pain ENT: Denies dizziness and Reports sore throat Comments: left ear pain Cardiovascular: Cardiovascular: Reports no additional cardiovascular complaints, Denies chest pain, Denies lightheadedness, Denies Loss of Consciousness and Denies dyspnea Respiratory: Respiratory: Reports no additional respiratory complaints, Reports cough and Denies dyspnea Gastrointestinal: Gastrointestinal: Reports no additional gastrointestinal complaints, Denies abdominal pain, Denies melena, Denies hematochezia, Denies change in bowel habits and Denies change in stool character Genitourinary: Genitourinary: Denies hematuria, Denies urinary frequency, Denies dysuria, Denies urinary incontinence, Denies urinary hesitancy and Denies urinary urgency Musculoskeletal: Musculoskeletal: Reports no additional musculoskeletal complaints, Denies numbness and Denies tingling Neurologic: Denies dizziness, Denies loss of vision, Denies numbness and Denies tingling Psychiatric: Psychiatric: Reports no additional psychiatric complaints Endocrine: Endocrine: Reports no additional endocrine complaints Hematologic/Lymphatic: Hematologic/Lymphatic: Reports no additional hematologic/lymphatic complaints Allergic/Immunologic: Allergic/Immunologic: Reports no additional allergic/immunologic complaints PMFSH Past Medical History Attestation statement: The following information was validated with the patient. Source: old records reviewed and nursing notes reviewed Medical History Migraine Anemia Social History Social History Alcohol intake: never Advance Directives: No Advance Directives Information Provided: Yes Do you have a plan to hurt others: No Plan Physical Exam ED Vital Signs: Vital Signs - 24 hr 06/28/24 12:52 06/28/24 15:29 Temperature 98.0 F 98 F Pulse Rate 94 94 Respiratory Rate 16 16 Blood Pressure 120/64 120/64 Pulse Oximetry 100 100 Oxygen Delivery Method Room Air Room Air BMI result Body Mass Index 28.3 Const General: cooperative, no acute distress, alert and awake Nutritional Appearance: well nourished Orientation/consciousness: patient oriented x3 Limitations: no limitations HENMT Head: Yes normal to inspection and Yes atraumatic Ears: hearing grossly normal bilaterally and external ears normal General nose exam: Normal external nose present, no nasal discharge noted and no epistaxis Face and sinus: Yes normal facial exam, No abrasion and No laceration Mouth: Normal oral and palatal mucosa present, no drooling and no muffled voice Eyes General: appearance normal, both eyes and all related structures Periorbital: periorbital findings normal Eyelids: Yes eyelids normal Conjunctivae: conjunctivae normal Pupils: Equal, round and reactive pupils present EOM: EOMs intact bilaterally Neck Neck: Yes normal visual inspection, Yes full ROM and Yes no lymphadenopathy Chest Chest palpation & inspection: normal inspection of the chest Resp Effort & Inspection: normal respiratory effort and able to speak in complete sentences GI Inspection: Yes normal to inspection Neuro General: patient oriented x3 and moves all extremities Cranial nerves: Yes Equal, round and reactive pupils present Cognition (Neuro): normal cognition Extrem General: Yes normal to inspection, Yes full ROM and Yes capillary refill normal Psych Appearance: grossly normal Mental Status: mental status grossly normal Affect: normal affect Attitude: cooperative Thought process: Normal thought process present Thought content: Normal thought content present Insight: Good insight present (Psych) Course Course Course Narrative: RME performed by Vera Roth PA-C. Patient is a 23 year old assigned female at presenting to the emergency department with left ear pain and a cough. Detailed physical exam and review of systems are deferred to the primary therapist. Swabs ordered. Patient placed back in the waiting room pending room availability and results. Medical Decision Making Medical Decision Making MDM Narrative: Patient is a 23 year old assigned female at with a history of migraines and anemia presenting to the emergency department today with ear pain, a cough, and sore throat. Patient's physical exam was unremarkable. Patient's strep swab was positive. Patient's COVID-19, influenza, and RSV tests were negative. I explained my physical exam findings as well as all test results to the patient. I answered all questions asked by the patient. I stressed the importance of the patient taking her medication as directed (either prescribed or as the over the counter packaging recommends). I stressed the importance of the patient following up with her primary care provider. I stressed the importance of the patient returning to the emergency department immediately if her symptoms were to worsen or if she were to develop any dizziness, shortness of breath, difficulty breathing, chest pain, blurry vision, loss of vision, nausea, vomiting, abdominal pain, fever, chills, back pain, or any other complaints. Patient verbalized agreement and understanding with this treatment plan and discharge. Differential Diagnosis Differential Diagnoses: The differential diagnosis associated with the presentation includes Strep pharyngitis COVID-19 Influenza RSV Admission/Observation Consideration of admission/observation: Escalation of care including admission/observation considered Patient would have been admitted to the hospital had her work up had any findings where hospital admission was appropriate and her clinical presentation warranted hospital admission. Lab Data [facility] Lab Attestation statement: I reviewed the patient's lab results. My interpretation of these results are in the [facility] Rationale portion of this note. Labs: Lab Results 06/28/24 06/28/24 Range/Units 13:46 14:21 Influenza Type A (PCR) NEGATIVE (Negative) Influenza Type B (PCR) NEGATIVE (Negative) RSV RNA Qual (PCR) NEGATIVE (Negative) SARS-CoV-2 RNA (RT-PCR) NEGATIVE (Negative) S. pyogenes GrpA JAKI TNP Positive A Prescription Management I considered prescription management with: Antibiotic (patient prescribed an antibiotic for strep pharyngitis) Discharge Plan Discharge Clinical Impression: Strep pharyngitis Patient Disposition: Home, Self-Care Instructions: Strep Throat (DC) Additional Instructions: Take your antibiotic as prescribed. THROW YOUR TOOTHBRUSH AWAY AND REPLACE IT IMMEDIATELY AFTER YOU HAVE BEGUN YOUR ANTIBIOTIC. If you do NOT do this, you will get strep pharyngitis again. Follow up with your primary care provider. Return to the emergency department im mediately if your symptoms worsen or if you develop any dizziness, shortness of breath, difficulty breathing, chest pain, blurry vision, loss of vision, nausea, vomiting, abdominal pain, fever, chills, back pain, or any other complaints. [place] el antibi?carlitos david y earl se le douglas recetado. TIRE EL CEPILLO DE DIENTES Y C?MBIELO INMEDIATAMENTE DESPU?S DE EMPEZAR A AKANKSHA EL ANTIBI?CARLITOS. Si NO lo hace, volver? a tener faringitis estreptoc?cica. Lazaro un seguimiento con rosas m?dico de cabecera. Acuda inmediatamente al servicio de urgencias si alyssa s?ntomas empeoran o si presenta mareos, falta de aliento, dificultad para respirar, dolor tor?cico, visi?n borrosa, p?rdida de visi?n, n?useas, v?mitos, dolor abdominal, fiebre, escalofr?os, dolor de espalda o cualquier otra molestia. Prescriptions: New penicillin V potassium 500 mg tablet 500 mg PO BID 10 Days Qty: 20 0RF No Action amoxicillin-pot clavulanate 875-125 mg tablet 1 tab PO BID 10 Days Qty: 20 0RF acetaminophen [Tylenol Extra Strength] 500 mg tablet 1,000 mg PO QID PRN (Reason: fever or pain) Qty: 14 0RF cyclobenzaprine 10 mg tablet 10 mg PO Q8H PRN (Reason: Muscle spasm) Qty: 14 0RF lidocaine [Lidoderm] 5 % adhesive patch,medicated 1 patch topical DAILY Qty: 15 0RF Rx Instructions: leave on most painful area for up to 12 hrs. May be substituted amoxicillin 500 mg tablet 500 mg PO BID Qty: 20 0RF amoxicillin 500 mg tablet 500 mg PO BID 10 Days Qty: 20 0RF acetaminophen 500 mg capsule 1,000 mg PO TID PRN (Reason: fever or pain) Qty: 30 0RF oxycodone 5 mg tablet 5 mg PO Q8H PRN (Reason: pain) Qty: 8 0RF Rx Instructions: Partial Fill upon patient request. amoxicillin-pot clavulanate 875-125 mg tablet 1 tab PO Q12H Qty: 20 0RF fluticasone propionate [Flonase Allergy Relief] 50 mcg/actuation spray,suspension 1 spray intranasal Q12H Qty: 16 0RF Rx Instructions: administer into each nostril azithromycin 250 mg tablet 250 mg PO DAILY 4 Days Qty: 4 0RF Rx Instructions: start on day 2 of therapy omeprazole 40 mg capsule,delayed release(DR/EC) 40 mg PO DAILY Qty: 20 0RF acetaminophen [Tylenol] 325 mg tablet 650 mg PO Q6H PRN (Reason: pain) Qty: 30 0RF ondansetron 4 mg tablet,disintegrating 4 mg PO Q6-8H PRN (Reason: nausea and vomiting) Qty: 7 0RF alum-mag hydroxide-simeth [Maalox Advanced] 200-200-20 mg/5 mL suspension 5 ml PO 5XD PRN (Reason: dyspepsia) Qty: 355 0RF Rx Instructions: administer between meals and at bedtime cimetidine 800 mg tablet 800 mg PO BID Qty: 30 0RF Rx Instructions: administer with meals promethazine [Promethegan] 25 mg suppository [address] Q6H PRN (Reason: nausea and vomiting) Qty: 20 0RF oxycodone 5 mg tablet 5 mg PO Q6H PRN (Reason: severe pain (scale score 7-10)) Qty: 12 0RF Rx Instructions: Partial Fill upon patient request. nitrofurantoin monohyd/m-cryst [Macrobid] 100 mg capsule 100 mg PO Q12H 7 Days Qty: 14 0RF Rx Instructions: must administer with a meal/food Referrals: Padmini Alicia MD [Primary Care Provider] - Stand Alone Forms: Work/School Release Interventions: ED Discharge Assessment Last Done: 06/28/24 15:29 Discharge Date/Time: 06/28/24 15:30 Print Language: Irish
[2024-06-28 14:33] LABS: IDNOW Serial# 58CA691E; Strep A Nucleic Acid Positive (Negative)
[2024-06-28 15:09] LABS: Influenza A PCR NEGATIVE (Negative); Influenza B PCR NEGATIVE (Negative); Resp Syncy Virus RNA Qual PCR NEGATIVE (Negative); SARS COV2 PCR INHOUSE NEGATIVE (Negative)
[2024-06-28 15:29] VITALS: BP 120/64; PULSE 94; RESP 16; TEMP 36.6; O2SAT 100
== END 2024-06-28 15:30 | disposition home or self-care (01) ==
PROVIDERS: Physician Assistant Medical; Emergency Provider Emergency Medicine; PCP Internal Medicine
DX: J02.0 Streptococcal pharyngitis (principal); H92.02 Otalgia, left ear; Z03.818 Encounter for observation for suspected exposure to other biological agents ruled out
CPT/HCPCS: 0241U; 87651; 99282; 99283

== ENCOUNTER 2024-10-19 09:02 | Emergency (ER) | payer MEDICAID, SELFPAY ==
--- NOTE | 2024-10-19 09:26 | ED.PREGNANCY ---
HPI - General Chief complaint: Abdominal Pain Stated complaint: vaginal bleeding abd pain Related Data Previous Rx's ?Medication ?Instructions ?Recorded acetaminophen 500 mg tablet 1,000 mg (2 x 500 mg) PO QID PRN 10/27/21 (Tylenol Extra Strength) fever or pain #14 tabs amoxicillin 875 mg-potassium 1 tab PO BID Pharyngitis 10 days 10/27/21 clavulanate 125 mg tablet #20 tabs cyclobenzaprine 10 mg tablet 10 mg PO Q8H PRN Muscle spasm #14 10/27/21 tabs lidocaine 5 % topical patch 1 patch topical DAILY pain #15 ea 10/27/21 (Lidoderm) amoxicillin 500 mg tablet 500 mg PO BID #20 tabs 04/17/22 oxycodone 5 mg tablet 5 mg PO Q8H PRN pain #8 tabs 05/31/22 amoxicillin 875 mg-potassium 1 tab PO Q12H #20 tabs 08/01/22 clavulanate 125 mg tablet fluticasone propionate 50 1 spray intranasal Q12H #16 grams 08/01/22 mcg/actuation nasal spray,suspension (Flonase Allergy Relief) azithromycin 250 mg tablet 250 mg PO DAILY 4 days #4 tabs 08/05/22 acetaminophen 500 mg capsule 1,000 mg (2 x 500 mg) PO TID PRN 10/12/22 fever or pain #30 caps amoxicillin 500 mg tablet 500 mg PO BID 10 days #20 tabs 10/12/22 acetaminophen 325 mg tablet 650 mg (2 x 325 mg) PO Q6H PRN 11/18/22 (Tylenol) pain #30 tabs omeprazole 40 mg capsule,delayed 40 mg PO DAILY #20 caps 11/18/22 release ondansetron 4 mg disintegrating 4 mg PO Q6-8H PRN nausea and 11/22/22 tablet vomiting #7 tabs aluminum-mag hydroxide-simethicone 5 ml PO 5XD PRN dyspepsia #355 mL 11/30/22 200 mg-200 mg-20 mg/5 mL oral susp (Maalox Advanced) cimetidine 800 mg tablet 800 mg PO BID #30 tabs 12/01/22 promethazine 25 mg rectal 25 mg PA Q6H PRN nausea and 12/01/22 suppository (Promethegan) vomiting #20 ea oxycodone 5 mg tablet 5 mg PO Q6H PRN severe pain (scale 12/23/22 score 7-10) #12 tabs nitrofurantoin 100 mg PO Q12H 7 days #14 caps 11/15/23 monohydrate/macrocrystals 100 mg capsule (Macrobid) penicillin V potassium 500 mg 500 mg PO BID 10 days #20 tabs 06/28/24 tablet Allergies Allergy/AdvReac Type Severity Reaction Status Date / Time aspirin [ASA] Allergy Swelling Verified 10/19/24 09:36 caffeine Allergy Swelling Verified 10/19/24 09:36 morphine Allergy Palpitation Verified 10/19/24 09:36 s [facility] Past Medical History Medical History Migraine Anemia Social History Social History Alcohol intake: never Advance Directives: No Advance Directives Information Provided: No Physical Exam Vital Signs: Vital Signs: Last Vital Signs Temp 98 F 10/19/24 09:28 Pulse 92 10/19/24 09:28 Resp 16 10/19/24 09:28 Pulse Ox 100 10/19/24 09:28 O2 Del Method Room Air 10/19/24 09:28 BMI result Body Mass Index 30.6 Course Course Course Narrative: This is a Rapid Medical Exam performed in triage by Jennifer Levine PA-C. Full HPI, ROS and PE to be performed by primary ED provider. 23-year-old F @10 weeks 5 days gestation Syriac-speaking female presenting to the ED c/o vaginal bleeding w/clots since yesterday, admits saw something big pass. Was seen at [facility] on 10/16 for pain/bleeding & at that time she has HR & IUP PE: abd soft w/lower > right/suprapubic ttp Plan: labs, UA Discharge Plan Discharge Clinical Impression: Vaginal bleeding in Patient Disposition: Left W/O Completing Treatment Prescriptions: No Action amoxicillin-pot clavulanate 875-125 mg tablet 1 tab PO BID 10 Days Qty: 20 0RF acetaminophen [Tylenol Extra Strength] 500 mg tablet 1,000 mg PO QID PRN (Reason: fever or pain) Qty: 14 0RF cyclobenzaprine 10 mg tablet 10 mg PO Q8H PRN (Reason: Muscle spasm) Qty: 14 0RF lidocaine [Lidoderm] 5 % adhesive patch,medicated 1 patch topical DAILY Qty: 15 0RF Rx Instructions: leave on most painful area for up to 12 hrs. May be substituted amoxicillin 500 mg tablet 500 mg PO BID Qty: 20 0RF amoxicillin 500 mg tablet 500 mg PO BID 10 Days Qty: 20 0RF acetaminophen 500 mg capsule 1,000 mg PO TID PRN (Reason: fever or pain) Qty: 30 0RF oxycodone 5 mg tablet 5 mg PO Q8H PRN (Reason: pain) Qty: 8 0RF Rx Instructions: Partial Fill upon patient request. amoxicillin-pot clavulanate 875-125 mg tablet 1 tab PO Q12H Qty: 20 0RF fluticasone propionate [Flonase Allergy Relief] 50 mcg/actuation spray,suspension 1 spray intranasal Q12H Qty: 16 0RF Rx Instructions: administer into each nostril azithromycin 250 mg tablet 250 mg PO DAILY 4 Days Qty: 4 0RF Rx Instructions: start on day 2 of therapy omeprazole 40 mg capsule,delayed release(DR/EC) 40 mg PO DAILY Qty: 20 0RF acetaminophen [Tylenol] 325 mg tablet 650 mg PO Q6H PRN (Reason: pain) Qty: 30 0RF ondansetron 4 mg tablet,disintegrating 4 mg PO Q6-8H PRN (Reason: nausea and vomiting) Qty: 7 0RF alum-mag hydroxide-simeth [Maalox Advanced] 200-200-20 mg/5 mL suspension 5 ml PO 5XD PRN (Reason: dyspepsia) Qty: 355 0RF Rx Instructions: administer between meals and at bedtime cimetidine 800 mg tablet 800 mg PO BID Qty: 30 0RF Rx Instructions: administer with meals promethazine [Promethegan] 25 mg suppository 25 mg PA Q6H PRN (Reason: nausea and vomiting) Qty: 20 0RF oxycodone 5 mg tablet 5 mg PO Q6H PRN (Reason: severe pain (scale score 7-10)) Qty: 12 0RF Rx Instructions: Partial Fill upon patient request. nitrofurantoin monohyd/m-cryst [Macrobid] 100 mg capsule 100 mg PO Q12H 7 Days Qty: 14 0RF Rx Instructions: must administer with a meal/food penicillin V potassium 500 mg tablet 500 mg PO BID 10 Days Qty: 20 0RF Interventions: LWBS Worksheet Last Done: 10/19/24 18:32 Discharge Date/Time: 10/19/24 19:23
[2024-10-19 09:28] VITALS: PULSE 92; RESP 16; TEMP 36.6; O2SAT 100; BMI 30.6
== END 2024-10-19 19:23 | disposition left against medical advice (07) ==
LOC: HO.ED 19:22
PROVIDERS: Emergency Provider Emergency Medicine
DX: O20.9 Hemorrhage in early pregnancy, unspecified (principal); R10.2 Pelvic and perineal pain; Z3A.10 10 weeks gestation of pregnancy; Z79.899 Other long term (current) drug therapy
CPT/HCPCS: 99281; 99283

== ENCOUNTER 2024-12-03 11:00 | Emergency (ER) | payer MEDICAID, SELFPAY ==
--- NOTE | ~2024-12-03 | CT_ITS ---
EXAMINATION: CT ABDOMEN PELVIS WITHOUT IV CONTRAST HISTORY: abd pain COMPARISON: There are no prior studies for comparison. TECHNIQUE: CT scan of the abdomen and pelvis was performed without contrast using standard departmental protocol. Coronal and sagittal reformatted images were generated and reviewed. Oral contrast material was not administered at the request of the referring physician. This CT exam was performed with one or more of the following dose reduction techniques: automated exposure control, adjustment of the mA and/or kV according to patient size, use of iterative reconstruction technique. DLP: 477 mGy-cm FINDINGS: LOWER CHEST: The visualized lung bases are clear. There is no pleural effusion. CARDIOVASCULATURE: The heart is normal in size. There is no pericardial effusion. LIVER: The liver is normal in size and contour. The liver has an unremarkable unenhanced appearance. GALLBLADDER / BILE DUCTS: The gallbladder is unremarkable. There is no intra or extrahepatic biliary ductal dilatation. SPLEEN: The spleen is normal in size and has an unremarkable unenhanced appearance. PANCREAS: The pancreas has an unremarkable unenhanced appearance. ADRENAL GLANDS: Unremarkable. KIDNEYS/RETROPERITONEUM: No renal calculi are identified. There is no hydronephrosis. LYMPH NODES: No retroperitoneal lymphadenopathy is identified in the abdomen or pelvis. VASCULATURE: The abdominal aorta is normal in caliber. MESENTERY/PERITONEUM: No free fluid. No masses. There is no free intraperitoneal gas. STOMACH: The stomach is collapsed, limiting evaluation. SMALL BOWEL: The small bowel is normal in caliber. COLON: The colon is collapsed. APPENDIX: Normal. URINARY BLADDER/PELVIC ORGANS: The urinary bladder is unremarkable. The uterus and left ovary have an unremarkable unenhanced appearance. The right ovary is not definitely identified. BONES / SOFT TISSUES: No suspicious bony or soft tissue abnormalities. CT/CT abdomen pelvis wo IV con IMPRESSION: Unremarkable unenhanced CT of the abdomen and pelvis. Electronically signed by: Zach Partida MD 12/03/2024 03:31 PM EDT
[2024-12-03 11:06] VITALS: BP 117/77; PULSE 75; RESP 14; TEMP 36.3; O2SAT 100; BMI 29.5
--- NOTE | 2024-12-03 11:06 | ED.GENADULT ---
HPI - General Adult General Chief complaint: Abdominal Pain Stated complaint: Food poisoning? Time Seen by Provider: 12/03/24 11:43 Source: patient and RN notes reviewed Mode of arrival: ambulatory Limitations: no limitations History of Present Illness ED Provider: Vaishali Webb PA-C HPI narrative: This is a 24-year-old female, with no known medical problems, who presents emergency department with concerns for abdominal pain, nausea, vomiting and diarrhea which started this morning. Patient states that she had 2 episodes of vomiting, and approximately 4 episodes of diarrhea. She states that she ate at a restaurant in [facility] and had oatmeal, she states that shortly after she felt unwell and developed her symptoms. Denies any sick contacts with similar symptoms. No recent antibiotic use. She denies any fevers, she does endorse chills. She describes the pain in her stomach as a twisting movement, and states that she has diffuse abdominal tenderness. No history of any abdominal surgeries in the past. no bloody or black stool. No urinary symptoms. Patient does report that she had a miscarriage on October 16, 2024, states that she followed up with [facility], and she had a confirmed ultrasound where she was told that she passed all the products of conception. She currently is on her period now. She denies chance of . No other complaints or concerns at this time. MD complaint: Abdominal pain, nausea, vomiting, diarrhea Relieving factors: none Exacerbating factors: none Associated symptoms: denies other symptoms Related Data Previous Rx's ?Medication ?Instructions ?Recorded acetaminophen 500 mg tablet 1,000 mg (2 x 500 mg) PO QID PRN 10/27/21 (Tylenol Extra Strength) fever or pain #14 tabs amoxicillin 875 mg-potassium 1 tab PO BID Pharyngitis 10 days 10/27/21 clavulanate 125 mg tablet #20 tabs cyclobenzaprine 10 mg tablet 10 mg PO Q8H PRN Muscle spasm #14 10/27/21 tabs lidocaine 5 % topical patch 1 patch topical DAILY pain #15 ea 10/27/21 (Lidoderm) amoxicillin 500 mg tablet 500 mg PO BID #20 tabs 04/17/22 oxycodone 5 mg tablet 5 mg PO Q8H PRN pain #8 tabs 05/31/22 amoxicillin 875 mg-potassium 1 tab PO Q12H #20 tabs 01/04/23 clavulanate 125 mg tablet fluticasone propionate 50 1 spray intranasal Q12H #16 grams 08/01/22 mcg/actuation nasal spray,suspension (Flonase Allergy Relief) azithromycin 250 mg tablet 250 mg PO DAILY 4 days #4 tabs 08/05/22 acetaminophen 500 mg capsule 1,000 mg (2 x 500 mg) PO TID PRN 10/12/22 fever or pain #30 caps amoxicillin 500 mg tablet 500 mg PO BID 10 days #20 tabs 10/12/22 acetaminophen 325 mg tablet 650 mg (2 x 325 mg) PO Q6H PRN 11/18/22 (Tylenol) pain #30 tabs omeprazole 40 mg capsule,delayed 40 mg PO DAILY #20 caps 11/18/22 release ondansetron 4 mg disintegrating 4 mg PO Q6-8H PRN nausea and 11/22/22 tablet vomiting #7 tabs aluminum-mag hydroxide-simethicone 5 ml PO 5XD PRN dyspepsia #355 mL 11/30/22 200 mg-200 mg-20 mg/5 mL oral susp (Maalox Advanced) cimetidine 800 mg tablet 800 mg PO BID #30 tabs 12/01/22 promethazine 25 mg rectal 25 mg FL Q6H PRN nausea and 12/01/22 suppository (Promethegan) vomiting #20 ea oxycodone 5 mg tablet 5 mg PO Q6H PRN severe pain (scale 12/23/22 score 7-10) #12 tabs nitrofurantoin 100 mg PO Q12H 7 days #14 caps 11/15/23 monohydrate/macrocrystals 100 mg capsule (Macrobid) penicillin V potassium 500 mg 500 mg PO BID 10 days #20 tabs 06/28/24 tablet ondansetron 4 mg disintegrating 4 mg PO Q6H PRN nausea and 12/03/24 tablet vomiting #12 tabs Allergies Allergy/AdvReac Type Severity Reaction Status Date / Time aspirin [ASA] Allergy Swelling Verified 12/03/24 11:07 caffeine Allergy Swelling Verified 12/03/24 11:07 morphine Allergy Palpitation Verified 12/03/24 11:07 s Review of Systems Review of Systems: Yes all other systems are reviewed and are negative Constitutional: Constitutional: Reports as per [facility] Past Medical History Medical History Migraine Anemia Social History Social History Alcohol intake: never Physical Exam ED Vital Signs: Vital Signs - 24 hr 12/03/24 11:06 12/03/24 11:21 12/03/24 13:01 Temperature 97.3 F 98.4 F 98.2 F Pulse Rate 75 78 66 Respiratory Rate 14 15 15 Blood Pressure 117/77 124/71 113/87 Pulse Oximetry 100 100 99 Oxygen Delivery Method Room Air Room Air Room Air 12/03/24 14:02 12/03/24 15:22 12/03/24 16:33 Temperature 98.4 F 98.4 F 98.2 F Pulse Rate 64 63 68 Respiratory Rate 15 14 16 Blood Pressure 115/67 113/71 113/71 Pulse Oximetry 99 98 99 Oxygen Delivery Method Room Air Room Air Room Air BMI result Body Mass Index 29.5 Const General: cooperative, comfortable and no acute distress Orientation/consciousness: patient oriented x3 Limitations: no limitations [facility] Head: Yes normal to inspection, Yes normocephalic and Yes atraumatic Ears: hearing grossly normal bilaterally General nose exam: Normal external nose present Face and sinus: Yes normal facial exam Mouth: Normal oral and palatal mucosa present, oropharynx normal and moist mucous membranes Throat: Yes posterior oropharynx normal Eyes General: appearance normal, both eyes and all related structures Eyelids: Yes eyelids normal Conjunctivae: conjunctivae normal Sclerae: sclerae normal Pupils: Equal, round and reactive pupils present EOM: EOMs intact bilaterally Neck Neck: Yes normal visual inspection, Yes full ROM and Yes no lymphadenopathy Lymphatic: no lymphadenopathy noted Chest Chest palpation & inspection: normal inspection of the chest Resp Effort & Inspection: normal respiratory effort and able to speak in complete sentences Auscultation: clear to auscultation bilaterally, no crackles, no rales, no rhonchi and no wheezes Cardio Rate: regular rate Rhythm: regular rhythm Heart sounds: S1 normal heart sound present and S2 normal heart sound present GI Other: abdomen is soft, with diffuse tenderness throughout, no specific point tenderness. No suprapubic pain. Inspection: Yes normal to inspection Skin General skin exam: no rashes or lesions noted Trauma: no lacerations or abrasions Wounds: no wounds Neuro General: patient oriented x3 and moves all extremities Cranial nerves: Yes Equal, round and reactive pupils present Extrem General: Yes normal to inspection Right upper extremity: normal to inspection Left upper extremity: normal to inspection Right lower extremity: normal to inspection Left lower extremity: normal to inspection Course Course Course Narrative: This is a rapid medical exam performed by Shahab Chu NP: Additional HPI, ROS, PE not included below will be deferred to primary provider. 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 She states she thinks the food may have been bad. She reports 3 episodes of foamy vomit. Denies chest pain, SOB, bloody or bilious vomiting, or headache. PE: no neuro deficits, A&O x3, no respiratory distress, no active vomiting in triage. Plan: labs, viral swabs Medications Administered Discontinued Medications Generic Name Dose Route Start Last Admin Trade Name Armando PRN Reason Stop Dose Admin Lactated Ringer's 1,000 mls @ 999 mls/hr 12/03/24 12:43 12/03/24 16:32 Lr IV 12/03/24 13:43 Infused .Q1H1M ONE Infusion Acetaminophen 1,000 mg in 100 mls @ 400 mls/hr 12/03/24 12:44 12/03/24 16:32 Ofirmev IV 12/03/24 12:58 Infused ONCE ONE Infusion Ondansetron HCl 4 mg 12/03/24 12:44 12/03/24 13:47 Ondansetron Hcl 4 Mg/2 Ml Vial IVPUSH 12/03/24 12:45 4 mg ONCE ONE Administration Medical Decision Making Medical Decision Making [facility] Narrative: This is a 24-year-old female who presents emergency department with concerns for acute onset of abdominal pain, nausea, vomiting, and diarrhea. On arrival, patient is alert and oriented x4, she appears to be under no acute distress. She is speaking in full sentences. She has normal vital signs. Patient reports acute onset of the symptoms after consuming oatmeal. No sick contacts. Patient does report that she had a miscarriage in September, on October 16. She states that there is no chance of and she currently has her menses now. She states that she followed up with [facility] who confirmed through an ultrasound that she fully passed the products of conception. differential diagnoses include gastroenteritis, gastritis, SBO, viral illness, electrolyte derangement Plan: labs, UA, plus or minus imaging Course: Labs returned, she has slight leukopenia at 3.9, H&H normocytic anemia with a hemoglobin of 11 0.1/34.0, chemistry with no significant electrolyte derangement. Beta quant is 15. I discussed this with my attending physician, Dr. Mena who agrees that this is likely residual hCG as she had this miscarriage, and also had a ultrasound confirming fully passed products of conception. Will still obtain CT abdomen and pelvis, she has no pelvic pain at this time. We will continue to monitor. She is already feeling better after receiving IV fluids, Zofran, and Tylenol, now rating her pain a 4/10. 1600: patient re-evaluated, she is feeling much better, asymptomatic. Ct scan returns, with no acute pathology appreciated. Discussed overall workup with patient today, given strict return precautions. Given that she is feeling much better, patient stable for discharge. Differential Diagnosis Differential Diagnoses: The differential diagnosis associated with the presentation includes see above Admission/Observation Consideration of admission/observation: Escalation of care including admission/observation considered Lab Data [facility] Lab Attestation statement: I reviewed the patient's lab results. See MDM and course 12/03/24 12:44 12/03/24 12:44 Labs: Lab Results 12/03/24 12/03/24 Range/Units 12:44 14:17 WBC 3.9 L (4.8-10.8) X10*3/uL RBC 3.90 L (4.20-5.50) X10*6/uL Hgb 11.1 L (12.0-16.0) g/dl Hct 34.0 L (37.0-47.0) % MCV 87.2 (80.0-98.0) fL MCH 28.5 (27.0-33.0) pg MCHC 32.6 (31.0-35.0) g/dl RDW 13.4 (11.0-16.0) % Plt Count 237 (160-400) X10*3/uL MPV 10.1 (9.4-12.3) fL Immature Gran % (Auto) 0.3 (0.0-0.4) % Neut % (Auto) 50.5 (45-73) % Lymph % (Auto) 38.9 (20-40) % [place] % (Auto) 8.8 (2-11) % Eos % (Auto) 1.0 (0-4) % Baso % (Auto) 0.5 (0-2) % Lymph # (Auto) 1.5 (1.2-4.9) X10*3/uL [place] # (Auto) 0.3 (0.1-1.2) X10*3/uL Eos # (Auto) 0.0 (0.0-0.4) X10*3/uL Baso # (Auto) 0.0 (0.0-0.2) X10*3/uL Abs Immat Gran (auto) 0.01 (0.00-0.03) X10*3/uL Absolute Neuts (auto) 2.0 (2.0-8.3) x10*3/uL Absolute Nucleated RBC 0.000 (0.0-0.012) X10*3/uL Nucleated RBC % (auto) 0.0 (0.0-0.2) /100WBC Sodium 141 (135-145) mmol/L Potassium 4.0 (3.3-5.1) mmol/L Chloride 109 H (96-108) mmol/L Carbon Dioxide 27 (22-29) mmol/L Anion Gap 9 L (12-20) BUN 10 (9-16) mg/dL Creatinine 0.66 (0.5-1.4) mg/dL Estim Creat Clear Calc 127.8 Estimated GFR > 60 Random Glucose 97 (60-115) mg/dL Calcium 9.5 (8.4-10.2) mg/dL Total Bilirubin 0.4 (0.0-1.0) mg/dL AST 17 (5-31) U/L ALT 12 (0-31) U/L Alkaline Phosphatase 72 (39-117) U/L Total Protein 7.4 (6.5-8.0) g/dL Albumin 4.3 (3.5-5.0) g/dL Lipase 30 (8-78) U/L Beta HCG, Quant 15 mIU/mL Urine Color Yellow Urine Appearance Clear Urine pH 7.5 (5.0-9.0) Ur Specific [place] 1.015 (1.005-1.025) Urine Protein Negative (Neg-Trace) mg/dL Urine Glucose (UA) Negative (Negative) mg/dL Urine Ketones Negative (Negative) mg/dL Urine Blood Small (1+) H (Negative) Urine Nitrite Negative (Negative) Ur Leukocyte Esterase Negative (Negative) Urine RBC 0-2 (0-2) /HPF Urine WBC 0-5 (0-5) /HPF Ur Squamous Epith Cells 0-2 (0-2) /HPF Urine Bacteria None Seen (None Seen) Hyaline Casts 0-2 (0-2) /LPF Influenza Type A (PCR) NEGATIVE (Negative) Influenza Type B (PCR) NEGATIVE (Negative) RSV RNA Qual (PCR) NEGATIVE (Negative) SARS-CoV-2 RNA (RT-PCR) NEGATIVE (Negative) Radiology Impression Discussion of test interpretation with radiology: I have reviewed the radiologist's reading. Radiologist Impression: FINDINGS: LOWER CHEST: The visualized lung bases are clear. There is no pleural effusion. CARDIOVASCULATURE: The heart is normal in size. There is no pericardial effusion. LIVER: The liver is normal in size and contour. The liver has an unremarkable unenhanced appearance. GALLBLADDER / BILE DUCTS: The gallbladder is unremarkable. There is no intra or extrahepatic biliary ductal dilatation. SPLEEN: The spleen is normal in size and has an unremarkable unenhanced appearance. PANCREAS: The pancreas has an unremarkable unenhanced appearance. ADRENAL GLANDS: Unremarkable. KIDNEYS/RETROPERITONEUM: No renal calculi are identified. There is no hydronephrosis. LYMPH NODES: No retroperitoneal lymphadenopathy is identified in the abdomen or pelvis. VASCULATURE: The abdominal aorta is normal in caliber. MESENTERY/PERITONEUM: No free fluid. No masses. There is no free intraperitoneal gas. STOMACH: The stomach is collapsed, limiting evaluation. SMALL BOWEL: The small bowel is normal in caliber. COLON: The colon is collapsed. APPENDIX: Normal. URINARY BLADDER/PELVIC ORGANS: The urinary bladder is unremarkable. The uterus and left ovary have an unremarkable unenhanced appearance. The right ovary is not definitely identified. BONES / SOFT TISSUES: No suspicious bony or soft tissue abnormalities. CT/CT abdomen pelvis wo IV con IMPRESSION: Unremarkable unenhanced CT of the abdomen and pelvis. Electronically signed by: aZch Partida MD 12/03/2024 03:31 PM EDT RP Dictated By: Zach Partida MD Discharge Plan Discharge Clinical Impression: Nausea vomiting and diarrhea Patient Disposition: Home, Self-Care Instructions: Acute Nausea and Vomiting (ED), Acute Abdominal Pain (ED) Additional Instructions: You were seen in the emergency department due to abdominal pain, nausea, vomiting and diarrhea. Your workup today was reassuring. Your CT scan of your abdomen was normal. You likely consume something that did not agree with your stomach causing you to have the symptoms. Please stick to a bland diet, avoid spicy, fried, or dairy containing products. Take Zofran as needed for nausea. If any new or worsening symptoms occur including but not limited to severe chest pain, shortness of breath, abdominal pain, nausea, vomiting or diarrhea. Prescriptions: New ondansetron 4 mg tablet,disintegrating 4 mg PO Q6H PRN (Reason: nausea and vomiting) Qty: 12 0RF No Action amoxicillin-pot clavulanate 875-125 mg tablet 1 tab PO BID 10 Days Qty: 20 0RF acetaminophen [Tylenol Extra Strength] 500 mg tablet 1,000 mg PO QID PRN (Reason: fever or pain) Qty: 14 0RF cyclobenzaprine 10 mg tablet 10 mg PO Q8H PRN (Reason: Muscle spasm) Qty: 14 0RF lidocaine [Lidoderm] 5 % adhesive patch,medicated 1 patch topical DAILY Qty: 15 0RF Rx Instructions: leave on most painful area for up to 12 hrs. May be substituted amoxicillin 500 mg tablet 500 mg PO BID Qty: 20 0RF amoxicillin 500 mg tablet 500 mg PO BID 10 Days Qty: 20 0RF acetaminophen 500 mg capsule 1,000 mg PO TID PRN (Reason: fever or pain) Qty: 30 0RF oxycodone 5 mg tablet 5 mg PO Q8H PRN (Reason: pain) Qty: 8 0RF Rx Instructions: Partial Fill upon patient request. amoxicillin-pot clavulanate 875-125 mg tablet 1 tab PO Q12H Qty: 20 0RF fluticasone propionate [Flonase Allergy Relief] 50 mcg/actuation spray,suspension 1 spray intranasal Q12H Qty: 16 0RF Rx Instructions: administer into each nostril azithromycin 250 mg tablet 250 mg PO DAILY 4 Days Qty: 4 0RF Rx Instructions: start on day 2 of therapy omeprazole 40 mg capsule,delayed release(DR/EC) 40 mg PO DAILY Qty: 20 0RF acetaminophen [Tylenol] 325 mg tablet 650 mg PO Q6H PRN (Reason: pain) Qty: 30 0RF ondansetron 4 mg tablet,disintegrating 4 mg PO Q6-8H PRN (Reason: nausea and vomiting) Qty: 7 0RF alum-mag hydroxide-simeth [Maalox Advanced] 200-200-20 mg/5 mL suspension 5 ml PO 5XD PRN (Reason: dyspepsia) Qty: 355 0RF Rx Instructions: administer between meals and at bedtime cimetidine 800 mg tablet 800 mg PO BID Qty: 30 0RF Rx Instructions: administer with meals promethazine [Promethegan] 25 mg suppository 25 mg FL Q6H PRN (Reason: nausea and vomiting) Qty: 20 0RF oxycodone 5 mg tablet 5 mg PO Q6H PRN (Reason: severe pain (scale score 7-10)) Qty: 12 0RF Rx Instructions: Partial Fill upon patient request. nitrofurantoin monohyd/m-cryst [Macrobid] 100 mg capsule 100 mg PO Q12H 7 Days Qty: 14 0RF Rx Instructions: must administer with a meal/food penicillin V potassium 500 mg tablet 500 mg PO BID 10 Days Qty: 20 0RF Interventions: ED Discharge Assessment Last Done: 12/03/24 16:33 Discharge Date/Time: 12/03/24 16:33 Print Language: Belarusian
[2024-12-03 11:21] VITALS: BP 124/71; PULSE 78; RESP 15; TEMP 36.9; O2SAT 100
--- NOTE | 2024-12-03 11:26 | MHC.EDTECH ---
03/07 pain abdominal pain for about an hour started after she ate food from a restaurant. started 10/15 minutes after she ate the food Vomit: white and orange frothy patient states she ate oatmeal Patient states she has Nausea and diarrhea
[2024-12-03 12:48] LABS: MANUAL DIFF FLAG NO
[2024-12-03 12:51] LABS: Basophils Percent Auto 0.5 % (0-2); Hemoglobin 11.1 g/dl (12.0-16.0); Imm Gran Abs Auto 0.01 X10*3/uL (0.00-0.03); Imm Gran Pct Auto 0.3 % (0.0-0.4); Lymphocytes Absolute Auto 1.5 X10*3/uL (1.2-4.9); Lymphocytes Percent Auto 38.9 % (20-40); Mean Corpuscular HGB Conc 32.6 g/dl (31.0-35.0); Mean Corpuscular Hemoglobin 28.5 pg (27.0-33.0); Mean Corpuscular Volume 87.2 fL (80.0-98.0); Mean Platelet Volume 10.1 fL (9.4-12.3); Monocytes Absolute Auto 0.3 X10*3/uL (0.1-1.2); Monocytes Percent Auto 8.8 % (2-11); Neutrophils Percent Auto 50.5 % (45-73); Platelet Count 237 X10*3/uL (160-400); Red Cell Distribution Width 13.4 % (11.0-16.0); White Blood Count 3.9 X10*3/uL (4.8-10.8)
[2024-12-03 13:01] VITALS: BP 113/87; PULSE 66; RESP 15; TEMP 36.8; O2SAT 99
[2024-12-03 13:11] LABS: Alanine Aminotransferase 12 U/L (0-31); Albumin Level 4.3 g/dL (3.5-5.0); Alkaline Phosphatase 72 U/L (39-117); Anion Gap 9 (12-20); Aspartate Amino Transferase 17 U/L (5-31); Bilirubin Total 0.4 mg/dL (0.0-1.0); Blood Urea Nitrogen 10 mg/dL (9-16); Calcium 9.5 mg/dL (8.4-10.2); Carbon Dioxide 27 mmol/L (22-29); Chloride 109 mmol/L (96-108); Creatinine Clr Calc Pharmacy 127.8; Estimated Glomerular Filt Rate > 60; Glucose Random 97 mg/dL (60-115); HCG Quantitative 15 mIU/mL; Lipase 30 U/L (8-78); Sodium 141 mmol/L (135-145); Total Protein 7.4 g/dL (6.5-8.0)
--- OUTSIDE RECORDS SUMMARY | 2024-12-03 13:25 | XMS_ITS ---
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
--- OUTSIDE RECORDS SUMMARY | 2024-12-03 13:25 | XMS_ITS ---
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 Role Phone Natasha Martin Unavailable [phone] Allergies Allergen (clinical drug ingredient) Drug/Non Drug Allergy documented on EMR Reaction Allergy Type Onset Date Status aspirin Aspirin Unknown Drug Allergy Active caffeine Caffeine Unknown Drug Allergy Active REASON FOR VISIT Post Ab Medications Medication SIG (Take, Route, Frequency, Duration) Notes Start Date End Date Status Ibuprofen 800 MG 1 tablet with food or milk as needed Orally every 6-8 hrs for 3 days As needed pain and cramping, max 3 tablets in 24 hours 10/15/2024 Active Ondansetron 4 MG 1 tablet on the tongue and allow to dissolve Orally Every 8 hours for 3 days As needed nausea and vomiting Rx in house on 10/15/2024 ,# [id number],exp.0 08/28/2026 10/15/2024 Not-Taking Acetaminophen 500 MG 2 tablets Orally every 8 hrs PRN for 3 days Rx to Pharmacy 10/15/2024 Not-Taking Cryselle-28 0.3-30 MG-MCG 1 tablet Orally Once a day Rx from dispensed in house to start on 10/26/2024 10/26/2024 Active Liletta Not-Taking Social History Sex Assigned At : Social History Observation Description Sex Assigned At Female Problems Problem Type SNOMED Code ICD Code Onset Dates Problem Status W/U Status Risk Notes Problem Abnormal uterine bleeding (018886179405 00) Abnormal uterine and vaginal bleeding, unspecified (N93.9) Active confirmed Encounters Encounter Location Date Provider Diagnosis [address] [place], [place] [id number] 12/01/2024 Natashavaleria Martin Encounter for test, result positive Z32.01 and Abnormal uterine and vaginal bleeding, unspecified N93.9 Assessments Encounter Date Diagnosis (ICD Code) Assessment Notes Treatment Notes Treatment Clinical Notes Section Notes 12/01/2024 Encounter for test, result positive (ICD-10 - Z32.01) 12/01/2024 Abnormal uterine and vaginal bleeding, unspecified (ICD-10 - N93.9) We reviewed her estimated blood loss and associated symptoms abnormal and concerning in the context of anemia. Recommended emergency room, to only take tylenol 3000mg daily, and to start ibuprofen 800mg every 6 hours. She has no ibuprofen at home, refills sent to pharmacy for her to start while she waits for her to get back so he can drive her to the ED. Advised to take ambulance with worsening sx. [facility]. I am to call her tomorrow to check in. Plan Of Treatment Medication Medication Name Sig Start Date Stop Date Notes Ibuprofen 800 MG 1 tablet with food o r milk as needed Orally every 6-8 hrs for 3 days 10/15/2024 Treatment Notes Assessment Notes Abnormal uterine and vaginal bleeding, unspecified We reviewed her estimated blood loss and associated symptoms abnormal and concerning in the context of anemia. Recommended emergency room, to only take tylenol 3000mg daily, and to start ibuprofen 800mg every 6 hours. She has no ibuprofen at home, refills sent to pharmacy for her to start while she waits for her to get back so he can drive her to the ED. Advised to take ambulance with worsening sx. [facility]. I am to call her tomorrow to check in. Next Appt Details Follow Up: 1 day, Reason: ED F/U Progress Notes * Dale LOGAN YDOB:2000 (24 yo F)Acc No.[id number]:12/01/2024 Patient:?Nayeli LOGAN Provider:?Natasha Martin CNP :2000???Age:24 Y???Sex:Female D ate:12/01/2024 Address:[address] [place] [address] [address], [place], [id number] Subjective: * Chief Complaints: * ???1. Post Ab. * HPI: ???Visit Narrative:?Dale is a 24yo AFAB person presenting today via phone for evaluation of bleeding and pain 5 weeks post MAB. She had pain and bleeding for one day Saturday, then Saturday she started bleeding again,?dvery hour soaking through a maxin pad or super tampon since yesterday,?every 20 minutes passing a blood clot the size of a quarter. Right now wearing a diaper. Changed once today after being fulkly soaked.?Pain associated with cramping is 8/10. Took 1000 tylenol at 8am and 12pm. Endorses chills and fatigue feeling weak and like she would just like to sleep. Endorses headache, diarrhea, and lower back pain, she denies fever, abnormal vaginal discharge,?nausea, vomiting, denies confusion or loss of conciousness. * Medical History:?Migraines - no aura. * Medications:?Taking Cryselle -28 0.3-30 MG-MCG Tablet 1 tablet Orally Once a day , Notes to Pharmacist: Rx from [facility] dispensed in house to start on 10/26/2024, Not-Taking/PRN Ondansetron 4 MG Tablet Disintegrating 1 tablet on the tongue and allow to dissolve Orally Every 8 hours As needed nausea and vomiting, Notes to Pharmacist: Rx in house on 10/15/2024 ,# [id number],exp.08/28/2026, Not- Taking/PRN Acetaminophen 500 MG Capsule 2 tablets Orally every 8 hrs PRN , Notes to Pharmacist: Rx to Pharmacy, Not-Taking/PRN Ibuprofen 800 MG Tablet 1 tablet with food or milk as needed Orally every 6-8 hrs As needed pain and cramping, max 3 tablets in 24 hours, Notes to Pharmacist: Rx to Pharmacy, Not-Taking/PRN Roxanne * Allergies:?Caffeine, Aspirin . Objective: * Vitals:? * Examination: ???General Examination: ?NEUROLOGIC:?alert and oriented.? Assessment: * Assessment: 1.?Encounter for t est, result positive - Z32.01???2.?Abnormal uterine and vaginal bleeding, unspecified - N93.9??? Plan: * Treatment: 2.?Others? Refill Ibuprofen Tablet, 800 MG, 1 tablet with food or milk as needed, Orally, every 6-8 hrs As needed pain and cramping, max 3 tablets in 24 hours, 3 days, 9 Capsule, Refills 0.?? * Follow Up:?1 day (Reason: ED F/U) * Billing Information: * Visit Code:? * Procedure Codes:? * Electronic signature of Elif Martin CNP on 12/03/2024 at 01:25 PM EDT Sign off status: Pending * Provider:?Natasha Martin CNP Date:?12/01 Generated for Albert cochran/Clark/Ericka on:?12/03/2024 01:25 PM EDT History and Physical Notes * HPI (History of Present Illness) Category Sub-Category Detail Notes Category Not es Visit Narrative Dale is a 24yo AFAB person presenting today via phone for evaluation of bleeding and pain 5 weeks post MAB. She had pain and bleeding for one day Saturday, then Saturday she started bleeding again, dvery hour soaking through a maxin pad or super tampon since yesterday, every 20 minutes passing a blood clot the size of a quarter. Right now wearing a diaper. Changed once today after being fulkly soaked. Pain associated with cramping is 8/10. Took 1000 tylenol at 8am and 12pm. Endorses chills and fatigue feeling weak and like she would just like to sleep. Endorses headache, diarrhea, and lower back pain, she denies fever, abnormal vaginal discharge, nausea, vomiting, denies confusion or loss of conciousness. Examination Category Sub-Category Detail Notes Category Not es General Examination NEUROLOGIC: alert and oriented
--- OUTSIDE RECORDS SUMMARY | 2024-12-03 13:25 | XMS_ITS | Patient Health Record ---
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 Name Role Phone BRYAN QUAN Unavailable [phone] RODRIGO RODRIGUEZ Unavailable [phone] Natasha Martin Unavailable [phone] Allergies Allergen (clinical drug ingredient) Drug/Non Drug Allergy documented on EMR Reaction Allergy Type Onset Date Status aspirin Aspirin Unknown Drug Allergy Active caffeine Caffeine Unknown Drug Allergy Active Results Component Value Reference Range Notes Hematocrit-[id number] Reviewed date:10/14/2024 05:36:41 PM Interpretation:Slight improvement Performing Lab:[facility], [address] [place] [address], Phone - [phone], Director - [facility] Notes/Report: Hematocrit 33.9 35.7-45.8 % Hemoglobin-[id number] Reviewed date:10/14/2024 05:35:49 PM Interpretation:Slight improvement Performing Lab:[facility], [address] [place] [address], Phone - [phone], Director - [facility] Notes/Report: Hemoglobin 11.1 11.7-15.5 GM/DL hCG,Beta Subunit, Qnt-[id number] Reviewed date:10/14/2024 05:37:16 PM Interpretation:Level noted Performing Lab:[facility], [address] [place] [address], Phone - [phone], [facility]/Report: hCG,Beta Subunit,Qnt,Serum 98582 <5 MIU/ML Males and non- females: <5 mIU/mL Female (weeks of gestation): 4 weeks 5-100 mIU/mL 5 weeks 200-3000 mIU/mL 6 weeks 10,000-80,000 mIU/mL 7-14 weeks 90,000-500,000 mIU/mL 15-26 weeks 5,000-80,000 mIU/mL Peak: Late 1st Trimester 300,000 mIU/mL Interpretation: hCG levels increase exponentially during very early , after reaching a plateau during the late first trimester. hCG levels steadily decline until a steady state which is seen throughout the second and third trimesters. Although the main clinical utility of hCG levels lies within early , these findings underline the importance of hCG throughout gestational physiology and suggest that variations in hCG levels may be associated with adverse clinical outcomes such as loss, preeclampsia, delivery and growth restriction. hCG,Beta Subunit, Qnt-[id number] Reviewed date:10/28/2024 11:35:21 AM Interpretation:Decreasing HCG as expected Performing Lab:[facility], [address] [place] [address], Phone - [phone], Director - [facility] Notes/Report: A duplicate report has been generated due to demographic updates. hCG,Beta Subunit,Qnt,Serum 403 <5 MIU/ML Males and non- females: <5 mIU/mL Female (weeks of gestation): 4 weeks 5-100 mIU/mL 5 weeks 200-3000 mIU/mL 6 weeks 10,000-80,000 mIU/mL 7-14 weeks 90,000-500,000 mIU/mL 15-26 weeks 5,000-80,000 mIU/mL Peak: Late 1st Trimester 300,000 mIU/mL Interpretation: hCG levels increase exponentially during very early , after reaching a plateau during the late first trimester. hCG levels steadily decline until a steady state which is seen throughout the second and third trimesters. Although the main clinical utility of hCG levels lies within early , these findings underline the importance of hCG throughout gestational physiology and suggest that variations in hCG levels may be associated with adverse clinical outcomes such as loss, preeclampsia, delivery and growth restriction. Hematocrit-[id number] Reviewed date:09/28/2024 12:12:02 PM Interpretation:Noted low . Performing Lab:[facility], [address] [place] [address], Phone - [phone], Director - [facility] Notes/Report: Clinical Information:SRC: Hematocrit 31.2 35.7-45.8 % Hemoglobin-842641 Reviewed date:09/28/2024 12:11:31 PM Interpretation:Noted low Performing Lab:[facility], [address] [facility], [place], Phone - [phone], Director - [facility] Notes/Report: Clinical Information:SRC: Hemoglobin 10.5 11.7-15.5 GM/DL Hemoglobin, POCT Reviewed date:09/23/2024 04:58:41 PM Interpretation:8.9 Performing Lab: Notes/Report: 8.9 Test, Urine Reviewed date:09/23/2024 04:58:08 PM Interpretation:Positive Performing Lab: Notes/Report: Positive Test, Urine Positive Lot # [id number] Exp. Date Reason For Referral No Information Medications Medication SIG (Take, Route, Frequency, Duration) [...] vomiting Rx in house on 10/15/2024 ,# [id number],exp.0 08/28/2026 10/15/2024 Not-Taking Acetaminophen 500 MG 2 [...] Problem Status W/U Status Risk Notes Problem Iron deficiency anemia (55501598) Other iron deficiency anemias (D50.8) Active confirmed Problem Abnormal vaginal bleeding (242225191) Other specified abnormal uterine and vaginal bleeding (N93.8) Active confirmed Problem Abnormal uterine and vaginal bleeding, unspecified (N93.9) Active confirmed Vital Signs Blood pressure diastolic 80 mm Hg 10/26/2024 no weight taken Height 63 in 10/26/2024 no weight taken Blood pressure systolic 118 mm Hg 10/26/2024 no w eight taken Weight 10 lbs 10/26/2024 no weight taken Encounters Encounter Location Date Provider Diagnosis [facility] [address] [facility] [address] [place], [place] [phone] 12/01/2024 Natasha Martin Encounter for test, result positive Z32.01 and Abnormal uterine and vaginal bleeding, unspecified N93.9 [facility] [address] [facility] [address] [place], [place] [id number] 09/23/2024 BRYAN QUAN Encounter for elective termination of Z33.2 ; test, result positive Z32.01 and Other iron deficiency anemias D50.8 [facility] [address] [place] [id number] 10/14/2024 RODRIGO RODRIGUEZ [facility] [address] [facility] [address] [place], [place] [id number] 10/14/2024 BRYAN QUAN Encounter for test, result positive Z32.01 and Other specified abnormal uterine and vaginal bleeding N93.8 [facility] [address] [place] [address] [address] [place], [place] [phone] 10/26/2024 BRYAN QUAN Encounter for elective termination of Z33.2 and Encounter for initial prescription of contraceptive pills Z30.[id number] [place], [place] [id number] 12/01/2024 Natasha Martin [facility] [address] [facility] [address] [place], [place] [id number] 09/16/2024 BRYNA QUAN [facility] [address] [place] [address] [place], [place] [id number] 10/02/2024 BRYAN QUAN Other iron deficienc y anemias D50.8 and test, result positive Z32.[address] [id number] 10/19/2024 BRYANLEANNA QUAN [facility] [address] [facility] [address] [place], [place] [id number] 10/26/2024 BRYAN QUAN Encounter for test, result positive Z32.01 [facility] [address] [place] [address] [address] [place], [place] [id number] 11/12/2024 BRYAN QUAN Assessments Encounter Date Diagnosis (ICD Code) Assessment Notes Treatment Notes Treatment Clinical Notes Section Notes 09/23/2024 Encounter for elective termination of (ICD-10 - Z33.2) 09/23/2024 test, result positive (ICD-10 - Z32.01) Clt is not a good candidate for medication secondary to hx and current anemia dx Noted HBG today at 8.9 ,H/H drawn today and sent to Lab Preprocedure ultrasound done: NOT PERFORMED. CLT understands the risks of foregoing a preprocedure ultrasound that include: ectopic , inaccurate dating and early loss Hgb POC done: YES due to recent hx or symptoms of anemia After review with the CLT ,agrees to referral to [facility] for procedural TA Booked appt .for 09/30/2024 and will F/U at [facility] x 1 week after on 10/07/2024 Client denies all sxs of ectopic ,no cramping or spotting Client clear about decision and agrees to plan Aware to F/U at ER if any bleeding /pain /fever sxs Visit documented . 10/02/2024 Other iron deficiency anemias (ICD-10 - D50.8) 10/14/2024 Encounter for test, result positive (ICD-10 - Z32.01) Spent 20 minutes doing the following : Chart Prep Obtaining /reviewing HPI Reviewed all hx since last [facility] visit of 09/23/2024 , Ehsan david Reviewed recent bleeding and current sxs Discussed today's HCG level and explained likely miscarriage of current Urged to go to [facility] for F/U care stat ,not to wait to prevent risk of complications /infection Client and agree to go to [facility] ,state have been there before TC to [facility] to give details , spoke with Arlene,also fax sent stat Will F/U with client on 10/15/2024 by TC Also schedule F/U visit at [facility] in 1/2 weeks Client agrees to plan Visit documented . 10/14/2024 Other specified abnormal uterine and vaginal bleeding (ICD-10 - N93.8) 10/26/2024 Encounter for initial prescription of contraceptive pills (ICD-10 - Z30.011) 10/26/2024 Encounter for elective termination of (ICD-10 - Z33.2) If YES to Q 1-4 in HPI, then reassure the Clt that the medication is likely to have been successful. Reviewed normal bleeding pattern and duration of bleeding after a termination. Reviewed potential complications such as signs of infection, heavier bleeding that's not resolving, cramping/pain that would require RTC for further evaluation. No restrictions on activity. Per client info at [facility] visit of 10/26/2024 ,and review of [facility] notes ,likely successful MAB FOLLOW-UP PLAN: Will do # 1 ,UPTs given ,also Quant HCG drawn today ,10/26/2024 {SELF ASSESSMENT: Take a urine test in 5 weeks after your misoprostol dose. If the test is negative then you can be reassured that the termination process was successful. If your test is positive than please call back to arrange further follow up. {Hcg quant: repeat level ordered. Clt to be contacted by staff if appropriate decrease in levels seen or if further follow-up required} Ultrasound follow-up: at [facility] ,indicates absence of gestational sac 10/26/2024 Encounter for test, result positive (ICD-10 - Z32.01) 12/01/2024 Encounter for test, result positive (ICD-10 [...] ambulance with worsening sx. Warm handoff to [facility]. I am to call her tomorrow to check in. 10/02/2024 test, result positive (ICD-10 - Z32.01) 09/23/2024 Other iron deficiency anemias (ICD-10 - D50.8) 10/26/2024 Other BC control options reviewed and offered. Clt to start oc Rx ,reviewed ACHES ,S/Es and BUM x 1 week Rx Cryselle dispensed in -house # [id number] ,exp.04/2025 6 packs Will start today with abtinence x 1 week post MAB States partner seeking vasectomy ,info given and will F/U with PCP now Urged 100% safer sex /condom use prn Agrees to close F/U and will RTC x 2 mos for pill use review Client knows to CB with questions /concerns F/U per Quant HCG also by phone Client aware of Triage line with translators if needs to call Client feels supported Visit documented . Plan Of Treatment Future Test Test Name Order Date [id number] 10/02/2024 Insurance Providers Payer Name Payer Address Payer Phone Subscriber Number Group Number Insured Name Patient Relationship to Insured Coverage Start Date Coverage End Date [place]ICA[place] ATT CLAIMS [address] [place] [id number] Dale Logan Self - patient is the insured Medical (General) History Medical History History ICD Code Migraines - no aura Surgical History Surgery Date(Month/Year) Hospitalization History Reason Date(Month/Year) childbirth
--- OUTSIDE RECORDS SUMMARY | 2024-12-03 13:25 | XMS_ITS | Clinical Summary ---
Author Organization [employer] Address [address] [place] [address] [address] [place] [address] Care Team Providers Care Java Sql Developer Name Role Phone Padmini Alicia MD Primary Care Provide r Medications acetaminophen (Tylenol) 500 MG tablet take 2 tablet by oral route every 8 hours as needed not to exceed 6 tablets per 24hrs as needed for headache or chest pain 8 Active ascorbic acid (Vitamin C) 500 MG tablet take it every other day with iron supplement 2 Active docusate sodium (Colace) 100 MG capsule take 1 capsule by oral route 2 times every day 2 Active doxylamine (Unisom) 25 MG tablet take one before bed time 1 Active ferrous sulfate 325 (65 Fe) MG EC tablet take 1 Tablet by Oral route every other day with vitamin C 2 Active hydrOXYzine HCl (Atarax) 25 MG tablet take 1 tablet by oral route every day as needed 2 Active prazosin (Minipress) 1 MG capsule take 1 capsule by oral route every day 30-60 minutes before bedtime 8 Active Vit-Fe Fumarate-FA ( Vitamins) 28-0.8 MG tablet Take one tablet by mouth once daily 1 Active pyridoxine (Vitamin B-6) 25 MG tablet take on every 6 hrs as needed 1 Active sertraline (Zoloft) 25 MG tablet take 1 tablet by oral route every day 2 Active Active Problems Problem Noted Date Diagnosed Date Homeless family 07/04/2022 Iron deficiency 07/04/2022 Right lower quadrant pain 07/03/2018 Anemia 06/12/2018 Dysmenorrhea 06/12/2018 Excessive and frequent menstruation 06/12/2018 Posttraumatic stress disorder 06/12/2018 Encounters Date Type Department Care Team Description 12/03/2024 Orders Only GENERIC EXTERNAL DATA DEPARTMENT Provider, Generic External Data 10/09/2024 Population Health Risk Score [facility] ([facility]) Department [address] [place] [id number] Provider, Population Health Generic from Last 3 Months Social History Tobacco Use Types Packs/Day Years Used Date Smoking Tobacco: Never Assessed Comments Unknown Sex and Gender Information Value Date Recorded Sex Assigned at Female 05/28/2022 10:34 AM EDT Legal Sex Female 10:34 AM EDT Gender Identity Female 05/28/2022 10:34 AM EDT Sexual Orientation Straight 05/28/2022 10 :34 AM EDT Last Filed Vital Signs Vital Sign Reading Time Taken Comments Blood Pressure 116/90 02/06/2022 12:07 AM EDT Pulse 76 02/06/2022 12:07 AM EDT Temperature - - Respiratory Rate - - Oxygen Saturation - - Inhaled Oxygen Concentration - - Weight 78.7 kg (173 lb 6.4 oz) 02/06/2022 12:07 AM EDT Height 160 cm (5' 3 ) 02/06/2022 12:07 AM EDT Body Mass Index 30.72 02/06/2022 12:07 AM EDT Plan of Treatment Health Maintenance Due Date Last Done Comments Depression Screening 2000 HIV Screening 2000 Alcohol/Substance Use Screening 2012 Tobacco Screening 2012 Family Planning (PISQ) 10/23/2015 HPV Vaccines (1 - 3-dose series) 10/23/2015 Hepatitis C Screening 2018 DTaP/Tdap/Td Vaccines (1 - Tdap) 10/23/2019 Hepatitis B Vaccines (1 of 3 - 19+ 3-dose series) 10/23/2019 Pap Smear 2021 COVID-19 Vaccine (1 - 2023-2 5 season) 2024 Influenza Vaccine (#1) 2024 Zoster Vaccines (1 of 2) 2050 RSV Patients and Pa tients Aged 60 years or older (1 - 1-dose 75+ series) 10/23/2075 HIB Vaccines Aged Out No longer eligi ble based on patient's age to complete this topic Hepatitis A Vaccines Aged Out No long er eligible based on patient's age to complete this topic IPV Vaccines Aged Out No longer eligi ble based on patient's age to complete this topic Meningococcal Vaccine Aged Out No albino roni eligible based on patient's age to complete this topic Pneumococcal Vaccine: Pediat rics (0 to 5 Years) and At-Risk Patients (6 to 49) Years) Aged Out No longer eligible b ased on patient's age to complete this topic RSV under 20 months Aged Out No longe r eligible based on patient's age to complete this topic Rotavirus Vaccines Aged Out No longer eligible based on patient's age to complete this topic Procedures Procedure Name Priority Date/Time Associated Diagnosis Comments HCG, TOTAL, QN Routine 12/03/2024 12:44 PM EDT LIPASE Routine 12/03/2024 12:44 PM EDT COMPREHENSIVE METABOLIC PANEL Routine 12/03/2024 12:44 PM EDT CBC WITH AUTO DIFFERENTIAL Routine 12/03/2024 12:44 PM EDT from Last 3 Months Results * (ABNORMAL) CBC auto differential (12/03/2024 12:44 PM EDT) White Blood Count 3.9(L) 4.8 - 10.8 X10*3/uL [facility] Red Blood Count 3.90(L) 4.20 - 5.50 X10*6/uL [facility] Hemoglobin 11.1(L) 12.0 - 16.0 g/dl [facility] Hematocrit 34.0(L) 37.0 - 47.0 % [facility] Mean Corpuscular Volume 87.2 80.0 - 98.0 fL [facility] Mean Corpuscular Hemoglobin 28.5 27.0 - 33.0 pg [facility] Mean Corpuscular HGB Conc 32.6 31.0 - 35.0 g/dl [facility] Red Cell Distribution Width 13.4 11.0 - 16.0 % [facility] Platelet Count 237 160 - 400 X10*3/uL [facility] Mean Platelet Volume 10.1 9.4 - 12.3 fL [facility] Neutrophils Percent Auto 50.5 45 - 73 % [facility] Imm Gran Pct Auto 0.3 0.0 - 0.4 % [facility] Lymphocytes Percent Auto 38.9 20 - 40 % [facility] Monocytes Percent Auto 8.8 2 - 11 % [facility] Eosinophils Percent Auto 1.0 0 - 4 % [facility] Basophils Percent Auto 0.5 0 - 2 % [facility] NRBC Pct Auto 0.0 0.0 - 0.2 /100WBC [facility] Neutrophils Absolute Auto 2.0 2.0 - 8.3 x10*3/uL [facility] Imm Gran Abs Auto 0.01 0.00 - 0.03 X10*3/uL [facility] Lymphocytes Absolute Auto 1.5 1.2 - 4.9 X10*3/uL [facility] Monocytes Absolute Auto 0.3 0.1 - 1.2 X10*3/uL [facility] Eosinophils Absolute Auto 0.0 0.0 - 0.4 X10*3/uL [facility] Basophils Absolute Auto 0.0 0.0 - 0.2 X10*3/uL [facility] NRBC Abs Auto 0.000 0.0 - 0.012 X10*3/uL [facility] 12/03/2024 12:4 4 PM EDT 12/03/2024 12:47 PM EDT us Generic External Data Provider LAB BLOOD ORDERAB LES Final Result [facility] [address] [place] [phone] [phone] * hCG, Total, Quantitative (12/03/2024 12:44 PM EDT) Pathologist [facility] HCG Quantitative 15 mIU/mL [facility] Comment:Weeks post LMP Appro ximate hCG(Last Menstrual Period) Range (mIU/ml)3 - 4 weeks 9 - 1304 - 5 weeks 75 - 2,6005 - 6 weeks 850 - 20,8006 - 7 weeks 4000 - 100,2007 - 12 weeks 11,500 - 289,23061 - 16 weeks 18,300 - 137,93098 - 29 weeks (2nd trimester) 1,400 - 53,79755 - 41 weeks (3rd trimester) 940 - 60,000The Suazo B- hCG assay is used for the early detection ofpregnancy; it cannot be used to diagnose any conditionunrelated to . If a B-hCG level is not supportedby the clinical evidence, results should be confirmed by analternative method (qualitative urine hCG, for example). 12/03/2024 12:4 4 PM EDT 12/03/2024 12:47 PM EDT Generic External Data Provider LAB BLOOD ORDERAB LES Final Result Performing Organization Address City/[facility]/ZIP Co de Phone Number [facility] [address] [place] [phone] * Lipase (12/03/2024 12:44 PM EDT) Pathologist [facility] Lipase 30 8 - 78 U/L [facility] 12/03/2024 12:4 4 PM EDT 12/03/2024 12:47 PM EDT Generic External Data Provider LAB BLOOD ORDERAB LES Final Result Performing Organization Address [facility] Co de Phone Number [facility] [address] [place] [phone] * (ABNORMAL) Comprehensive Metabolic Panel (12/03/2024 12:44 PM EDT) Pathologist [facility] Sodium 141 135 - 145 mmol/L [facility] Potassium 4.0 3.3 - 5.1 mmol/L [facility] Chloride 109(H) 96 - 108 mmol/L [facility] Carbon Dioxide 27 22 - 29 mmol/L [facility] Anion Gap 9(L) 12 - 20 [facility] Urea Nitrogen (BUN) 10 9 - 16 mg/dL [facility] Creatinine, Serum 0.66 0.5 - 1.4 mg/dL [facility] Creatinine Clr Calc Pharmacy 127.8 [facility] Comment:Provided height and weight: 160.02 cm,75.5 kg.eGFR (calculated from the MDRD study equation) and eCrCl(calculated from the Cockcroft-Gault equation) are based ondifferent parameters and may not yield comparable results.If eCrCl result is absurd, please check patient'sheight/weight. Estimated Glomerular Filt Rate >60 [facility] Comment:Chronic Kidney Disea se: Estimated GFR < 60 mL/min/1.30h0Jfhsws Kidney Disease: Estimated GFR < 15 mL/min/1.73m2 Glucose 97 60 - 115 mg/dL [facility] Calcium 9.5 8.4 - 10.2 mg/dL [facility] Bilirubin, Total 0.4 0.0 - 1.0 mg/dL [facility] Aspartate Amino Transferase 17 5 - 31 U/L [facility] Alanine Aminotransferase 12 0 - 31 U/L [facility] Total Protein 7.4 6.5 - 8.0 g/dL [facility] Albumin Level 4.3 3.5 - 5.0 g/dL [facility] Alkaline Phosphatase 72 39 - 117 U/L [facility] 12/03/2024 12:4 4 PM EDT 12/03/2024 12:47 PM EDT us Generic External Data Provider LAB BLOOD ORDERAB LES Final Result [facility] [address] [place] [phone] from Last 3 Months Care Teams Java Sql Developer Relationship Specialty Start Date End Date Padmini Alicia MD [address] [place] [phone] PCP - General Family Medicine 06/03/19
--- OUTSIDE RECORDS SUMMARY | 2024-12-03 13:25 | XMS_ITS | Encounter Summary ---
Author Organization [employer] Address [address] [facility] [address] [place] [address] Care Team Providers Care Alumnae Secretary Name Role Phone Padmini Alicia MD Primary Care Provide r Encounter Details Date Type Department Care Team ([facility] st Contact Info) Description 12/03/2024 Orders Only GENERIC EXTERNAL DATA DEPARTMENT Provider, Generic External Data Social History Tobacco Use Types Packs/Day Years Used Date Smoking Tobacco: Never Assessed Comments Unknown Sex and Gender Information Value Date Recorded Sex Assigned at Female 05/28/2022 10:34 AM EDT Legal Sex Female 10:34 AM EDT Gender Identity Female 05/28/2022 10:34 AM EDT Sexual Orientation Straight 05/28/2022 10 :34 AM EDT documented as of this encounter Plan of Treatment Not on file documented as of this encounter Procedures Procedure Name Priority Date/Time Associated Diagnosis Comments CBC WITH AUTO DIFFERENTIAL Routine 12/03/2024 12:44 PM EDT HCG, TOTAL, QN Routine 12/03/2024 12:44 PM EDT LIPASE Routine 12/03/2024 12:44 PM EDT COMPREHENSIVE METABOLIC PANEL Routine 12/03/2024 12:44 PM EDT documented in this encounter Results * hCG, Total, Quantitative (12/03/2024 12:44 PM EDT) HCG Quantitative 15 mIU/mL [facility] Comment:Weeks post LMP Appro ximate hCG(Last Menstrual Period) Range (mIU/ml)3 - 4 weeks 9 - 1304 - 5 weeks 75 - 2,6005 - 6 weeks 850 - 20,8006 - 7 weeks 4000 - 100,2007 - 12 weeks 11,500 - 289,54730 - 16 weeks 18,300 - 137,84251 - 29 weeks (2nd trimester) 1,400 - 53,04740 - 41 weeks (3rd trimester) 940 - 60,000The Suazo B-hCG assay is used for the early detection [...] Final Result Performing Organization Address [facility]/ZIP Co de Phone Number [facility] [address] [place] [phone] * Lipase (12/03/2024 12:44 PM EDT) Lipase 30 8 - 78 U/L [facility] 12/03/2024 12:4 4 PM EDT 12/03/2024 12:47 PM EDT Generic External Data Provider LAB BLOOD ORDERAB LES Final Result Performing Organization Address [facility] Co de Phone Number [facility] [address] [place] [phone] * (ABNORMAL) Comprehensive Metabolic Panel (12/03/2024 12:44 PM EDT) Sodium 141 135 - 145 mmol/L [facility] Potassium 4.0 3.3 - 5.1 mmol/L [facility] Chloride 109(H) 96 - 108 mmol/L [facility] Carbon Dioxide 27 22 - 29 mmol/L [facility] Anion Gap 9(L) 12 - 20 [facility] Urea Nitrogen (BUN) 10 9 - 16 mg/dL [facility] Creatinine, Serum 0.66 0.5 - 1.4 mg/dL [facility] Creatinine Clr Calc Pharmacy 127.8 [facility] Comment:Provided height and weight: 160.02 cm,75.5 kg.eGFR (calculated from the MDRD study equation) and eCrCl(calculated from the Cockcroft-Gault equation) are based ondifferent parameters and may not yield comparable results.If eCrCl result is absurd, please check patient'sheight/weight. Estimated Glomerular Filt Rate >60 [facility] Comment:Chronic Kidney Disea se: Estimated GFR < 60 mL/min/1.84t4Mcoqii Kidney Disease: Estimated GFR < 15 mL/min/1.73m2 Glucose 97 60 - 115 mg/dL [facility] Calcium 9.5 8.4 - 10.2 mg/dL [facility] Bilirubin, Total 0.4 0.0 - 1.0 mg/dL [facility] Aspartate Amino Transferase 17 5 - 31 U/L [facility] Alanine Aminotransferase 12 0 - 31 U/L [facility] Total Protein 7.4 6.5 - 8.0 g/dL [facility] Albumin Level 4.3 3.5 - 5.0 g/dL [facility] Alkaline Phosphatase 72 39 - 117 U/L [facility] 12/03/2024 12:4 4 PM EDT 12/03/2024 12:47 PM EDT us Generic External Data Provider LAB BLOOD ORDERAB LES Final Result [facility] [address] [place], [place] [phone] * (ABNORMAL) CBC auto differential (12/03/2024 12:44 PM EDT) White Blood Count 3.9(L) 4.8 - 10.8 X10*3/uL [facility] Red Blood Count 3.90(L) 4.20 - 5.50 X10*6/uL [facility] Hemoglobin 11.1(L) 12.0 - 16.0 g/dl [facility] Hematocrit 34.0(L) 37.0 - 47.0 % [facility] Mean Corpuscular Volume 87.2 80.0 - 98.0 fL [facility] Mean Corpuscular Hemoglobin 28.5 27.0 - 33.0 pg [facility] Mean Corpuscular HGB Conc 32.6 31.0 - 35.0 g/dl [facility] Red Cell Distribution Width 13.4 11.0 - 16.0 % [facility] Platelet Count 237 160 - 400 X10*3/uL [facility] Mean Platelet Volume 10.1 9.4 - 12.3 fL [facility] Neutrophils Percent Auto 50.5 45 - 73 % [facility] Imm Gran Pct Auto 0.3 0.0 - 0.4 % [facility] Lymphocytes Percent Auto 38.9 20 - 40 % [facility] Monocytes Percent Auto 8.8 2 - 11 % [facility] Eosinophils Percent Auto 1.0 0 - 4 % [facility] Basophils Percent Auto 0.5 0 - 2 % [facility] NRBC Pct Auto 0.0 0.0 - 0.2 /100WBC [facility] Neutrophils Absolute Auto 2.0 2.0 - 8.3 x10*3/uL [facility] Imm Gran Abs Auto 0.01 0.00 - 0.03 X10*3/uL [facility] Lymphocytes Absolute Auto 1.5 1.2 - 4.9 X10*3/uL [facility] Monocytes Absolute Auto 0.3 0.1 - 1.2 X10*3/uL [facility] Eosinophils Absolute Auto 0.0 0.0 - 0.4 X10*3/uL [facility] Basophils Absolute Auto 0.0 0.0 - 0.2 X10*3/uL [facility] NRBC Abs Auto 0.000 0.0 - 0.012 X10*3/uL [facility] 12/03/2024 12:4 4 PM EDT 12/03/2024 12:47 PM EDT us Generic External Data Provider LAB BLOOD ORDERAB LES Final Result Performing Organization Address City/State/[facility] Co de Phone Number [facility] [address] [place] [address] [phone] documented in this encounter Visit Diagnoses Not on filedocumented in this encounter Care Teams Alumnae Secretary Relationship Specialty Start Date End Date Padmini Alicia MD [address] [place] [address] PCP - General Family Medicine 06/03/19 documented as of this encounter
[2024-12-03 13:31] LABS: Influenza A PCR NEGATIVE (Negative); Influenza B PCR NEGATIVE (Negative); Resp Syncy Virus RNA Qual PCR NEGATIVE (Negative); SARS COV2 PCR INHOUSE NEGATIVE (Negative)
[2024-12-03] MEDS: Acetaminophen 1,000 MG/100 ML PIGGYBACK 400 MG IV (13:45)
[2024-12-03] MEDS: Lactated Ringers 1,000 ML 999 ML IV (13:46)
[2024-12-03] MEDS: ondansetron HCL 4 MG/2 ML VIAL IVPUSH (13:47)
[2024-12-03 14:02] VITALS: BP 115/67; PULSE 64; RESP 15; TEMP 36.9; O2SAT 99
--- NOTE | 2024-12-03 14:04 | MHC.EDTECH ---
patient states 4/10 pain still nauseous
[2024-12-03 14:43] LABS: Appearance Urine Clear; Color Urine Yellow; Glucose Urine UA Negative (Negative); Leukocyte Esterase Urine Negative (Negative); Nitrite Urine Negative (Negative); PH 7.5 (5.0-9.0); Specific Gravity - Urine 1.015 (1.005-1.025); UMIC TRIGGER UACC YES; Urine Blood Small (1+) (Negative); Urine Ketones Negative (Negative); Urine Protein Negative (Neg-Trace)
[2024-12-03 14:57] LABS: Bacteria Urine None Seen (None Seen); Hyaline Casts Urine 0-2 /LPF (0-2); RBC Urine 0-2 /HPF (0-2); Squamous Epithelial Cell Urine 0-2 /HPF (0-2); WBC Urine 0-5 /HPF (0-5)
[2024-12-03 15:22] VITALS: BP 113/71; PULSE 63; RESP 14; TEMP 36.9; O2SAT 98
--- NOTE | 2024-12-03 15:25 | MHC.EDTECH ---
The patient would like to know what the next steps are. The patient states she has 0/10 pain no nausea or vomiting.
[2024-12-03 16:33] VITALS: BP 113/71; PULSE 68; RESP 16; TEMP 36.8; O2SAT 99
== END 2024-12-03 16:33 | disposition home or self-care (01) ==
PROVIDERS: Physician Assistant Medical; Registered Nurse Emergency; Emergency Provider Emergency Medicine Emergency Medical Services; PCP Internal Medicine
DX: R11.2 Nausea with vomiting, unspecified (principal); R19.7 Diarrhea, unspecified; D64.9 Anemia, unspecified; Z79.899 Other long term (current) drug therapy; Z03.818 Encounter for observation for suspected exposure to other biological agents ruled out
CPT/HCPCS: 0241U; 74176; 80053; 81001; 83690; 84702; 85025; 96365; 96366; 96375; 99284; 99285; J0131; J2405; J7120

== ENCOUNTER → 2024-12-03 14:14 | Outpatient (BNV) | payer MEDICAID, SELFPAY | PROVIDERS: Emergency Provider Emergency Medicine Emergency Medical Services; PCP Internal Medicine; Visit Provider Radiology Diagnostic Radiology | DX: R10.9 Unspecified abdominal pain (principal) | CPT/HCPCS: 74176 ==

== ENCOUNTER 2025-03-15 23:00 | Emergency (ER) | payer MEDICAID, SELFPAY ==
[2025-03-15 23:08] VITALS: BP 124/63; PULSE 73; RESP 18; TEMP 36.6; O2SAT 97; BMI 30.8
[2025-03-15 23:44] LABS: MANUAL DIFF FLAG NO
[2025-03-15 23:45] LABS: Hematocrit 31.2 % (37.0-47.0); Hemoglobin 11.1 g/dl (12.0-16.0); Imm Gran Abs Auto 0.01 X10*3/uL (0.00-0.03); Imm Gran Pct Auto 0.2 % (0.0-0.4); Lymphocytes Absolute Auto 2.8 X10*3/uL (1.2-4.9); Mean Corpuscular HGB Conc 35.6 g/dl (31.0-35.0); Mean Corpuscular Hemoglobin 31.0 pg (27.0-33.0); Mean Corpuscular Volume 87.2 fL (80.0-98.0); NRBC Abs Auto 0.000 X10*3/uL (0.0-0.012); NRBC Pct Auto 0.0 /100WBC (0.0-0.2); Platelet Count 216 X10*3/uL (160-400); Red Blood Count 3.58 X10*6/uL (4.20-5.50); White Blood Count 5.6 X10*3/uL (4.8-10.8)
[2025-03-16] VITALS (7 sets, daily range): BP systolic 109–124; BP diastolic 66–85; PULSE 63–75; RESP 14–18; TEMP 36.6–36.7; O2SAT 99–100
[2025-03-16 00:05] LABS: Alanine Aminotransferase 14 U/L (0-31); Albumin Level 4.4 g/dL (3.5-5.0); Alkaline Phosphatase 75 U/L (39-117); Anion Gap 16 (12-20); Aspartate Amino Transferase 19 U/L (5-31); Blood Urea Nitrogen 12 mg/dL (9-16); Calcium 9.1 mg/dL (8.4-10.2); Carbon Dioxide 23 mmol/L (22-29); Chloride 108 mmol/L (96-108); Creatinine Clr Calc Pharmacy 123.3; Estimated Glomerular Filt Rate > 60; Potassium 4.0 mmol/L (3.3-5.1); Sodium 143 mmol/L (135-145); Total Protein 7.2 g/dL (6.5-8.0)
[2025-03-16 00:21] LABS: Resp Syncy Virus RNA Qual PCR NEGATIVE (Negative); SARS COV2 PCR INHOUSE NEGATIVE (Negative)
--- NOTE | 2025-03-16 07:40 | ED.HA ---
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 Valencia HPI Narrative: 24-year-old female history of migraine headache, presented for evaluation of headache started 5 days ago associated with a photophobia, neck pain, nausea but vomiting, no fever, chills, no exposure to sick contacts, no recent travel, no family history of intra cranial bleed, no history of cerebral aneurysm in the past. Patient stated that she has been working hard and she has 3 small children at home with stress that has been increased lately. Related Data Previous Rx's ?Medication ?Instructions ?Recorded acetaminophen 500 mg tablet 1,000 mg (2 x 500 mg) PO QID PRN 10/27/21 (Tylenol Extra Strength) fever or pain #14 tabs amoxicillin 875 mg-potassium 1 tab PO BID Pharyngitis 10 days 10/27/21 clavulanate 125 mg tablet #20 tabs cyclobenzaprine 10 mg tablet 10 mg PO Q8H PRN Muscle spasm #14 10/27/21 tabs lidocaine 5 % topical patch 1 patch topical DAILY pain #15 ea 10/27/21 (Lidoderm) amoxicillin 500 mg tablet 500 mg PO BID #20 tabs 04/17/22 oxycodone 5 mg tablet 5 mg PO Q8H PRN pain #8 tabs 05/31/22 amoxicillin 875 mg-potassium 1 tab PO Q12H #20 tabs 08/01/22 clavulanate 125 mg tablet fluticasone propionate 50 1 spray intranasal Q12H #16 grams 08/01/22 mcg/actuation nasal spray,suspension (Flonase Allergy Relief) azithromycin 250 mg tablet 250 mg PO DAILY 4 days #4 tabs 08/05/22 acetaminophen 500 mg capsule 1,000 mg (2 x 500 mg) PO TID PRN 10/12/22 fever or pain #30 caps amoxicillin 500 mg tablet 500 mg PO BID 10 days #20 tabs 10/12/22 acetaminophen 325 mg tablet 650 mg (2 x 325 mg) PO Q6H PRN 11/18/22 (Tylenol) pain #30 tabs omeprazole 40 mg capsule,delayed 40 mg PO DAILY #20 caps 11/18/22 release ondansetron 4 mg disintegrating 4 mg PO Q6-8H PRN nausea and 11/22/22 tablet vomiting #7 tabs aluminum-mag hydroxide-simethicone 5 ml PO 5XD PRN dyspepsia #355 mL 11/30/22 200 mg-200 mg-20 mg/5 mL oral susp (Maalox Advanced) cimetidine 800 mg tablet 800 mg PO BID #30 tabs 12/01/22 promethazine 25 mg rectal 25 mg AR Q6H PRN nausea and 12/01/22 suppository (Promethegan) vomiting #20 ea oxycodone 5 mg tablet 5 mg PO Q6H PRN severe pain (scale 12/23/22 score 7-10) #12 tabs nitrofurantoin 100 mg PO Q12H 7 days #14 caps 11/15/23 monohydrate/macrocrystals 100 mg capsule (Macrobid) penicillin V potassium 500 mg 500 mg PO BID 10 days #20 tabs 06/28/24 tablet ondansetron 4 mg disintegrating 4 mg PO Q6H PRN nausea and 12/03/24 tablet vomiting #12 tabs acetaminophen 500 mg tablet 500 mg PO Q6H PRN pain #14 tabs 03/16/25 (Tylenol Extra Strength) Allergies Allergy/AdvReac Type Severity Reaction Status Date / Time aspirin (ASA) Allergy Swelling Verified 03/15/25 23:10 caffeine Allergy Swelling Verified 03/15/25 23:10 morphine Allergy Palpitation Verified 03/15/25 23:10 s Review of Systems Review of Systems: All other systems are reviewed and are negative Constitutional: Reports as per HPI and Reports no additional constitutional complaints Eyes: Reports as per HPI and Reports no additional eye complaints Reports system reviewed and no additional complaints, except as documented Cardiovascular: Reports as per HPI and Reports no additional cardiovascular complaints Respiratory: Reports as per HPI and Reports no additional respiratory complaints Gastrointestinal: Reports as per HPI and Reports no additional gastrointestinal complaints Genitourinary: Reports no additional female genitourinary complaints Musculoskeletal: Reports no additional musculoskeletal complaints Skin/Breast: Reports system reviewed and no additional complaints, except as docu Psychiatric: Reports no additional psychiatric complaints Endocrine: Reports no additional endocrine complaints Hematologic/Lymphatic: Reports no additional hematologic/lymphatic complaints Allergic/Immunologic: Reports no additional allergic/immunologic complaints Reports system reviewed and no additional complaints, except as documented and Reports Abnormal speech present [facility] Past Medical History Medical History Migraine Anemia Social History Social History Alcohol intake: never Smoked in Last 30 Days: No Use of substances other than those prescribed or required for medical reasons: No Advance Directives: No Advance Directives Information Provided: Yes Do you have a plan to hurt others: No Plan Patient : No Physical Exam Vital Signs: Vital Signs: Last Vital Signs Temp 98 F 03/16/25 12:02 Pulse 75 03/16/25 12:02 Resp 16 03/16/25 12:02 BP 122/85 03/16/25 12:02 Pulse Ox 99 03/16/25 11:19 O2 Del Method Room Air 03/16/25 12:02 BMI result Body Mass Index 30.8 Vital signs have been reviewed and appear to be correct. Blood pressure elevated. Heart rate normal. Respiratory rate normal. Temperature normal. Oxygen saturation normal. Appearance: Alert. Oriented X3. No acute distress. Head: Normal external exam. Normocephalic. Atraumatic. No Frost signs noted. No raccoon eyes noted Eyes: PERRLA. EOMI. Conjunctiva and sclera normal. Eyelids normal. ENT: TM's Normal. Pharynx normal. Uvula midline. Moist mucous membranes. No trismus noted. No drooling noted. No muffled voice noted. Neck: Normal inspection. Neck supple. FROM. No adenopathy. Thyroid Normal. No meningeal signs. No neck mass noted. CVS: Normal heart rate and rhythm. Heart sound normal. No murmurs noted. Pulses normal throughout. Respiratory: No respiratory distress. Painless inspiration. Breath sounds normal. No wheezes/rales/rhonchi noted. Chest nontender. No accessory muscle usage noted or decreased air movement noted. Abdomen: Soft and nontender. Bowel sounds normal in all 4 quadrants. No distention noted. No organomegaly noted. No visible injury noted. Back: No CVA tenderness. Full range of motion noted. Skin: Skin warm and dry. Normal skin color. Normal skin turgor. No rashes/lesions/lacerations noted. Extremities: No lower extremity edema. Extremities exhibit normal range of motion. Extremities nontender. Neuro: Mental status: Normal attention, orientation, memory, and affect. Cranial nerves: Pupils are equal, round and reactive to light, EOMI, visual ho are fall, face is symmetric, facial sensations are normal. Motor examination normal muscle tone, strength to 4 extremities. DTR are +2, planter's are flexor. Sensory exam; normal coordination, no ataxia, gait stable. Cerebellar exam: [id number] and [id number]-[id number] is normal. Extrapyramidal system: No tremors, no rigidity with normal facial expressions. Pronator drift not present Course Reevaluation(s) Reevaluation #1: Feels better, normal neuro exam, GCS 15, headache now is 2/10, no nausea, no vomiting, no photophobia, no neck stiffness. Patient was instructed to rest for 2 days. No need for any further radiographic studies. Time: 11:30 Medications Administered Discontinued Medications Generic Name Dose Route Start Last Admin Trade Name Freq PRN Reason Stop Dose Admin Diphenhydramine HCl 25 mg 03/16/25 08:57 03/16/25 09:09 Diphenhydramine Hcl 50 Mg/Ml Vial IVPUSH 03/16/25 08:58 25 mg ONCE ONE Administration Sodium Chloride 1,000 mls @ 999 mls/hr 03/16/25 07:31 03/16/25 09:05 Ns IV 03/16/25 08:31 Infused .Q1H1M ONE Infusion Acetaminophen 1,000 mg in 100 mls @ 400 mls/hr 03/16/25 07:31 03/16/25 08:25 Ofirmev IV 03/16/25 07:45 Infused ONCE ONE Infusion Ondansetron HCl 4 mg 03/16/25 07:31 03/16/25 08:47 Ondansetron Hcl 4 Mg/2 Ml Vial IVPUSH 03/16/25 07:32 Not Given ONCE ONE Medical Decision Making Differential Diagnosis Differential Diagnoses: The differential diagnosis associated with the presentation includes (Migraine, viral infection, electrolyte derangement, , UTI.) Admission/Observation Consideration of admission/observation: Escalation of care including admission/observation considered Lab Data MDM Lab Attestation statement: I reviewed the patient's lab results. 03/15/25 23:38 03/15/25 23:38 Labs: Lab Results 03/15/25 03/16/25 Range/Units 23:38 07:56 WBC 5.6 (4.8-10.8) X10*3/uL RBC 3.58 L (4.20-5.50) X10*6/uL Hgb 11.1 L (12.0-16.0) g/dl Hct 31.2 L (37.0-47.0) % MCV 87.2 (80.0-98.0) fL MCH 31.0 (27.0-33.0) pg MCHC 35.6 H (31.0-35.0) g/dl RDW 12.8 (11.0-16.0) % Plt Count 216 (160-400) X10*3/uL MPV 10.3 (9.4-12.3) fL Immature Gran % (Auto) 0.2 (0.0-0.4) % Neut % (Auto) 38.7 L (45-73) % Lymph % (Auto) 50.1 H (20-40) % [place] % (Auto) 8.3 (2-11) % Eos % (Auto) 2.0 (0-4) % Baso % (Auto) 0.7 (0-2) % Lymph # (Auto) 2.8 (1.2-4.9) X10*3/uL [place] # (Auto) 0.5 (0.1-1.2) X10*3/uL Eos # (Auto) 0.1 (0.0-0.4) X10*3/uL Baso # (Auto) 0.0 (0.0-0.2) X10*3/uL Abs Immat Gran (auto) 0.01 (0.00-0.03) X10*3/uL Absolute Neuts (auto) 2.2 (2.0-8.3) x10*3/uL Absolute Nucleated RBC 0.000 (0.0-0.012) X10*3/uL Nucleated RBC % (auto) 0.0 (0.0-0.2) /100WBC Sodium 143 (135-145) mmol/L Potassium 4.0 (3.3-5.1) mmol/L Chloride 108 (96-108) mmol/L Carbon Dioxide 23 (22-29) mmol/L Anion Gap 16 (12-20) BUN 12 (9-16) mg/dL Creatinine 0.70 (0.5-1.4) mg/dL Estim Creat Clear Calc 123.3 Estimated GFR > 60 Random Glucose 95 (60-115) mg/dL Calcium 9.1 (8.4-10.2) mg/dL Total Bilirubin 0.3 (0.0-1.0) mg/dL Direct Bilirubin 0.1 (0.0-0.5) mg/dL AST 19 (5-31) U/L ALT 14 (0-31) U/L Alkaline Phosphatase 75 (39-117) U/L Total Protein 7.2 (6.5-8.0) g/dL Albumin 4.4 (3.5-5.0) g/dL Beta HCG, Quant 37 mIU/mL Urine Color Yellow Urine Appearance Clear Urine pH 6.5 (5.0-9.0) Ur Specific [place] 1.015 (1.005-1.025) Urine Protein Negative (Neg-Trace) mg/dL Urine Glucose (UA) Negative (Negative) mg/dL Urine Ketones Negative (Negative) mg/dL Urine Blood Negative (Negative) Urine Nitrite Negative (Negative) Ur Leukocyte Esterase Negative (Negative) Urine Test NEGATIVE (NEGATIVE) Influenza Type A (PCR) NEGATIVE (Negative) Influenza Type B (PCR) NEGATIVE (Negative) RSV RNA Qual (PCR) NEGATIVE (Negative) SARS-CoV-2 RNA (RT-PCR) NEGATIVE (Negative) Discharge Plan Discharge Clinical Impression: Tension headache Patient Disposition: Home, Self-Care Instructions: Acute Headache (DC) Prescriptions: New acetaminophen [Tylenol Extra Strength] 500 mg tablet 500 mg PO Q6H PRN (Reason: pain) Qty: 14 0RF No Action amoxicillin-pot clavulanate 875-125 mg tablet 1 tab PO BID 10 Days Qty: 20 0RF acetaminophen [Tylenol Extra Strength] 500 mg tablet 1,000 mg PO QID PRN (Reason: fever or pain) Qty: 14 0RF cyclobenzaprine 10 mg tablet 10 mg PO Q8H PRN (Reason: Muscle spasm) Qty: 14 0RF lidocaine [Lidoderm] 5 % adhesive patch,medicated 1 patch topical DAILY Qty: 15 0RF Rx Instructions: leave on most painful area for up to 12 hrs. May be substituted amoxicillin 500 mg tablet 500 mg PO BID Qty: 20 0RF amoxicillin 500 mg tablet 500 mg PO BID 10 Days Qty: 20 0RF acetaminophen 500 mg capsule 1,000 mg PO TID PRN (Reason: fever or pain) Qty: 30 0RF oxycodone 5 mg tablet 5 mg PO Q8H PRN (Reason: pain) Qty: 8 0RF Rx Instructions: Partial Fill upon patient request. amoxicillin-pot clavulanate 875-125 mg tablet 1 tab PO Q12H Qty: 20 0RF fluticasone propionate [Flonase Allergy Relief] 50 mcg/actuation spray,suspension 1 spray intranasal Q12H Qty: 16 0RF Rx Instructions: administer into each nostril azithromycin 250 mg tablet 250 mg PO DAILY 4 Days Qty: 4 0RF Rx Instructions: start on day 2 of therapy omeprazole 40 mg capsule,delayed release(DR/EC) 40 mg PO DAILY Qty: 20 0RF acetaminophen [Tylenol] 325 mg tablet 650 mg PO Q6H PRN (Reason: pain) Qty: 30 0RF ondansetron 4 mg tablet,disintegrating 4 mg PO Q6-8H PRN (Reason: nausea and vomiting) Qty: 7 0RF alum-mag hydroxide-simeth [Maalox Advanced] 200-200-20 mg/5 mL suspension 5 ml PO 5XD PRN (Reason: dyspepsia) Qty: 355 0RF Rx Instructions: administer between meals and at bedtime cimetidine 800 mg tablet 800 mg PO BID Qty: 30 0RF Rx Instructions: administer with meals promethazine [Promethegan] 25 mg suppository 25 mg AR Q6H PRN (Reason: nausea and vomiting) Qty: 20 0RF oxycodone 5 mg tablet 5 mg PO Q6H PRN (Reason: severe pain (scale score 7-10)) Qty: 12 0RF Rx Instructions: Partial Fill upon patient request. nitrofurantoin monohyd/m-cryst [Macrobid] 100 mg capsule 100 mg PO Q12H 7 Days Qty: 14 0RF Rx Instructions: must administer with a meal/food penicillin V potassium 500 mg tablet 500 mg PO BID 10 Days Qty: 20 0RF ondansetron 4 mg tablet,disintegrating 4 mg PO Q6H PRN (Reason: nausea and vomiting) Qty: 12 0RF Stand Alone Forms: Work/School Release Interventions: ED Discharge Assessment Last Done: 03/16/25 12:02 Print Language: Armenian
[2025-03-16 08:16] LABS: Appearance Urine Clear; Glucose Urine UA Negative (Negative); PH 6.5 (5.0-9.0); Specific Gravity - Urine 1.015 (1.005-1.025); UPreg QC Valid YES
== END 2025-03-16 12:18 | disposition home or self-care (01) ==
PROVIDERS: Emergency Provider Emergency Medicine
DX: G44.209 Tension-type headache, unspecified, not intractable (principal); H53.149 Visual discomfort, unspecified; M54.2 Cervicalgia; R11.0 Nausea
CPT/HCPCS: 80048; 80076; 81003; 81025; 84702; 85025; 87637; 96361; 96374; 96375; 99284; 99285; J0131; J1200; J2405